=== PATIENT | male | born 1980 | race Caucasian/White ===

== ENCOUNTER 2018-02-18 10:31 | Outpatient (CLI) | payer OTHER, SELFPAY ==
[2018-02-18 12:46] LABS: TSH (W/Ref FT4) 4.39 uIU/mL (0.358-3.74)
[2018-02-18 13:17] LABS: FREE T4 1.08 ng/dL (0.76-1.46)
== END 2018-02-18 10:51 ==
PROVIDERS: PCP Family Medicine; Visit Provider Family Medicine
DX: R79.89 Other specified abnormal findings of blood chemistry (principal)
CPT/HCPCS: 36415; 84439; 84443

== ENCOUNTER 2018-06-03 09:21 | Outpatient (CLI) | payer OTHER, SELFPAY ==
[2018-06-03 12:09] LABS: TSH (W/Ref FT4) 1.42 uIU/mL (0.358-3.74)
== END 2018-06-03 09:41 ==
PROVIDERS: Family Medicine; PCP Family Medicine; Visit Provider Family Medicine
DX: E03.9 Hypothyroidism, unspecified (principal)
CPT/HCPCS: 36415; 84443

== ENCOUNTER 2018-09-03 12:10 | Day surgery (SDC) | payer OTHER, SELFPAY ==
--- NOTE | 2018-09-03 07:29 | W.COLOREPORT ---
Date of service: 09/03/18 Time of Service: 13:00 Colonoscopy Report Date of procedure: 09/03/18 Pre-op diagnosis general: Family history of FAP, s/p total colectomy with J-pouch Post-op diagnosis procedure note: same Procedure: Proctoscopy with biopsies Surgeon: Beatriz Baez Anesthesia proc note operative: other (General/ ASA 2 / Edith Ovalle CRNA and JERE Petty) Estimated blood loss (mL): 3 Pathology: other (Biopsies of J pouch, bx of rectum at 4 quadrants and bx of anastamosis) Complications: None Disposition: same day Indications: Mr. Saenz is a pleasant 38 year old male with a history of FAP s/p total colectomy with J-pouch who is here for surveillance of his rectum for polyps or cancer. Risks, benefits and complications have been reviewed. Complications include but are not limited to bleeding, pain, perforation, missed small lesion/polyp, sore throat, aspiration and adverse reaction to the medications. Questions were entertained and answered to their satisfaction and they wished to proceed. No guarantees were given or implied. Prep: Other (enema) Procedure Start Time: 13:00 Procedure End Time: 13:16 Findings: A circular area of irritation noted on the small bowel just past the anastamosis, a white plaque in the Jpouch. Normal appearing anastamosis. No sessile or peduncultaed polyps identified. Scope was advanced into the small bowel for 15 cm. Procedure Description: After informed consent was obtained the patient was taken to the procedure room and placed in a left decubitous position. Monitors were applied and a time out was done. The patients name, date of , procedure, allergies to medications and metal in their body was reviewed. The patient was then sedated. Once sedated and comfortable a rectal exam was done. External exam was normal. Internal exam revealed a normal sphincter tone and no palpable masses. The scope was then introduced and advanced carefully to about 15 cm into the J-Pouch. It was slowly retracted. In the ouch an area measuring approximately 1 cm was noted to be red. No polypoid characteristics just very red and irritated. A biopsy was done. There was also a white plaque noted just past the anastamosis that was biopsied. No polypoid tissue, sessile polyps or pedunculated polyps were noted at the anastamosis or the rectal tissue. Biopsies in the 4 quadrants were done both at the anastamosis and just distal to the anastamosis. The patient tolerated the procedure well and there were no immediate complications. Follow up: The patient should follow up in 2 years unless they develop changes in bowel habits or other new gastrointestinal complaints.
--- NOTE | 2018-09-03 07:32 | COLE_ITS ---
Date of service: 09/03/18 Time of Service: 13:00 Colonoscopy Report Date of procedure: 09/03/18 Pre-op diagnosis general: Family history of FAP, s/p total colectomy with J- pouch Post-op diagnosis procedure note: same Procedure: Proctoscopy with biopsies Surgeon: Beatriz Baez Anesthesia proc note operative: other (General/ ASA 2 / Edith Ovalle CRNA and JERE Petty) Estimated blood loss (mL): 3 Pathology: other (Biopsies of J pouch, bx of rectum at 4 quadrants and bx of anastamosis) Complications: None Disposition: same day Indications: Mr. Saenz is a pleasant 38 year old male with a history of FAP s/p total colectomy with J-pouch who is here for surveillance of his rectum for polyps or cancer. Risks, benefits and complications have been reviewed. Complications include but are not limited to bleeding, pain, perforation, missed small lesion/polyp, sore throat, aspiration and adverse reaction to the medications. Questions were entertained and answered to their satisfaction and they wished to proceed. No guarantees were given or implied. Prep: Other (enema) Procedure Start Time: 13:00 Procedure End Time: 13:16 Findings: A circular area of irritation noted on the small bowel just past the anastamosis, a white plaque in the Jpouch. Normal appearing anastamosis. No se ssile or peduncultaed polyps identified. Scope was advanced into the small bowel for 15 cm. Procedure Description: After informed consent was obtained the patient was taken to the procedure room and placed in a left decubitous position. Monitors were applied and a time out was done. The patients name, date of , procedure, allergies to medications and metal in their body was reviewed. The patient was then sedated. Once sedated and comfortable a rectal exam was done. External exam was normal. Internal exam revealed a normal sphincter tone and no palpable masses. The scope was then introduced and advanced carefully to about 15 cm into the J- Pouch. It was slowly retracted. In the ouch an area measuring approximately 1 cm was noted to be red. No polypoid characteristics just very red and irritated. A biopsy was done. There was also a white plaque noted just past the anastamosis that was biopsied. No polypoid tissue, sessile polyps or pedunculated polyps were noted at the anastamosis or the rectal tissue. Biopsies in the 4 quadrants were done both at the anastamosis and just distal to the anastamosis. The patient tolerated the procedure well and there were no immediate complications. Follow up: The patient should follow up in 2 years unless they develop changes in bowel habits or other new gastrointestinal complaints.
--- NOTE | 2018-09-03 07:32 | W.PM.DSUDISC ---
Discharge Plan Disposition Patient Disposition: HOME Condition: Good Discharge Details Reason For Visit: Surveillance proctoscopy Attending Provider: Beatriz Baez Primary Care Provider: Darian Torrez Home Meds and New Rx's Prescriptions: No Action levothyroxine 112 mcg capsule 112 mcg PO DAILY Qty: 90 RF: 3 Discharge Instructions Additional Instructions: Findings: no polyps. Random biopsies were done There was an irritated area in the small bowel that was biopsied Follow up:2 years Please call if you develop: fevers >101.5 Nausea or Vomiting Abdominal pain that is not transient DAY SURGERY UNIT POST COLONOSCOPY INSTRUCTIONS 1. Because there will be medication in your system for the next 24 hours, you may feel a little sleepy. Your coordination will be affected. Therefore: a. Do not drive or operate dangerous equipment for 24 hours. b. Do not drink alcohol beverages for 24 hours (not even beer). c. Plan to go home and rest for the day. 2. Generally there are no restrictions on your activity after a day or so has gone by, but you may feel a bit fatigued for a few days. 3 After you arrive home you may have a light meal and return to a normal diet as you can tolerate it without feeling sick to your stomach. 4. After surgery, you may feel pain or discomfort. This should be only transient, but if it persists please contact your doctor. 5. If there are any questions regarding the findings of your procedure, please feel free to contact your doctor. 6. If you are unable to contact your doctor with a problem, contact the hospital at [phone]. 7. Continue all your regular medications unless directed otherwise. I understand the above instructions and have no questions. Signature of Patient or Responsible Adult Escort Date/Time Name of Responsible Adult Escort Signature of Nurse Date/Time Stand Alone Forms: Mary Haines (DSU) Activity:: Activity as Tolerated Diet:: As Tolerated Discharge Orders Discharge Orders: Discharge Order (Routine); Ordered 09/03/18 Ordered By: Beatriz Baez DS: Diagnosis Discharge Diagnosis (1) Family history of familial adenomatous polyposis: Status: Acute
[2018-09-03 12:15] VITALS: BP 123/81; PULSE 75; RESP 16; TEMP 35.6; O2SAT 94
[2018-09-03] MEDS: Lactated Ringers 1,000 ML 80 ML IV (12:50)
--- NOTE | 2018-09-03 13:05 | BOWEL_PTH ---
PATIENT: Wilbert Saenz LOC: [facility] U#:[id number] AGE/SX: 38/M ROOM: RE09/03/[address]: Beatriz Baez MD : 1980 BED: DIS: 09/03/2018 SPEC #: [id number] RECD: 09/03/18 16:52 STATUS: ALBERT MCCLAIN #: [id number] ZOË: 09/03/18 13:[address]: Beatriz Baez DEPT: Surgical Specimen RECD BY: Amina Rowland ENTERED: 09/03/18 16:54 SP TYPE: Bowel OTHR DR: Darian Torrez MD Tissues: 1 - BIOPSY BOWEL 2 - BIOPSY BOWEL 3 - BIOPSY BOWEL Procedures: GROSS AND MICRO LEVEL 4 Comments: [id number]
[2018-09-03 13:42] VITALS: BP 108/57; PULSE 64; RESP 15; TEMP 35.6; O2SAT 97
== END 2018-09-03 14:05 | disposition home or self-care (01) ==
LOC: SUR 12:11
PROVIDERS: PCP Family Medicine; Visit Provider Surgery
PROC: 0DJD8ZZ Inspection of Lower Intestinal Tract, Via Natural or Artificial Opening Endoscopic (ICD-10-PCS; CPT 45330; principal; 2018-09-03 12:45)
DX: Z12.11 Encounter for screening for malignant neoplasm of colon (principal); K63.3 Ulcer of intestine; K62.89 Other specified diseases of anus and rectum; K62.1 Rectal polyp; Z86.010 Personal history of colon polyps; Z90.49 Acquired absence of other specified parts of digestive tract; Z98.0 Intestinal bypass and anastomosis status; Z83.71 Family history of colonic polyps; K21.9 Gastro-esophageal reflux disease without esophagitis; Z80.0 Family history of malignant neoplasm of digestive organs
CPT/HCPCS: 46606; 88305

== ENCOUNTER 2019-01-28 11:10 | Outpatient (CLI) | payer OTHER, SELFPAY ==
--- NOTE | 2019-01-28 11:30 | DI.RAD_ITS ---
EXAM: XR CHEST 2V PA AND LATERAL INDICATION: cough, wheezing, dyspnea, pneumonia, J18.9. COMPARISON: CHEST 2 VIEWS PA,LAT from 01/20/2015 CHEST 2 VIEWS PA,LAT from 02/14/2016 TECHNIQUE: 2D digital imaging was performed. FINDINGS: Heart is not enlarged. There is somewhat prominent right hilar contour but this appears unchanged in comparison with previous examinations including January 2015. Lungs are generally clear. No pleu ral effusion. IMPRESSION: No evidence of acute process
[2019-01-28 12:46] LABS: ALT 60 U/L (16-63); AST 38 U/L (15-37); Alkaline Phosphatase 148 U/L (46-116); Anion Gap 12.8 mmol/L (3-11); BUN 10 mg/dL (7-18); Bilirubin, Total 0.5 mg/dL (0.2-1.0); CO2 23.2 mmol/L (21.0-32.0); CREATININE 1.08 mg/dL (0.70-1.30); Calcium 8.9 mg/dL (8.5-10.1); Chloride 104 mmol/L (98-107); Glucose 94 mg/dL (70-100); Potassium 4.5 mmol/L (3.5-5.1); Sodium 140 mmol/L (136-145); Total Protein 7.8 g/dL (6.4-8.2)
[2019-01-28 12:52] LABS: Abs Immature Grans 0.06 k/cumm (0.0-0.09); HCT 50.6 % (40.0-50.0); HGB 16.9 g/dL (13.5-17.5); Mean Corp. HGB Concentration 33.4 g/dL (32.0-36.0); Mean Corpuscular Volume 89.7 fL (80-95); Mean Platelet Volume 10.5 fL (8.0-11.0); Platelet Count 368 x1000/uL (130-400); RBC 5.64 m/cumm (4.50-6.00); RBC Distribution Width 13.3 % (11.8-14.1); White Blood Cell Count 14.35 k/cumm (4.4-10.8)
[2019-01-28 13:48] LABS: Absolute Eosinophil Count 0.86 k/cumm (0.0-0.7); Absolute Lymphocyte Count 2.01 k/cumm (1.2-3.4); Absolute Monocyte Count 1.29 k/cumm (0.11-0.7); Absolute Neutrophil Count 10.19 k/cumm (1.2-6.7); Atypical Lymphocytes % 3; Diff Comment Manual Differential; RBC Morphology Normal
== END 2019-01-28 11:30 ==
PROVIDERS: PCP Family Medicine; Visit Provider Family Medicine
DX: R05 Cough; R06.2 Wheezing; R06.09 Other forms of dyspnea; J18.9 Pneumonia, unspecified organism
CPT/HCPCS: 36415; 80053; 71046; 85025

== ENCOUNTER 2020-01-13 07:34 | Day surgery (SDC) | payer OTHER, SELFPAY ==
--- NOTE | 2020-01-13 06:54 | ENDO_ITS ---
Date of service: 01/13/20 Time of Service: 08:58 Endoscopy Report DATE OF PROCEDURE: 01/13/20 PRE-OP DIAGNOSIS: Hx of FAP and adenomatous polyp POST-OP DIAGNOSIS: other (same and multiple polyps) PROCEDURE: Flexible sigmoidoscopy SURGEON: Beatriz Baez ANESTHESIA: other (General/ASA 2/Chantelle Barreto, KAYLA) PATHOLOGY: other (multiple bx and polyps) COMPLICATIONS: None DISPOSITION: same day INDICATIONS: Chance is back to see me today for a sigmoidoscopy. He was seen at [facility] [place] and had another scope done and they found a tubular adenoma. There was no dysplacia. He was supposed to follow up with them in 6 months but then COVID hit and everything was delayed. He would like to have a scope done here as he is also dealing with his MOM who unfortunately has metastatic colon cancer. He denies any changes in his bowel habits. He has not had any melena or hematochezia. He has had no weight loss. He has no rectal pain. PREP: Other (mag Citrate) FINDINGS: Small polyps in the small bowel and rectum PROCEDURE DESCRIPTION: After informed consent was obtained the patient was taken to the procedure room and placed in a left decubitous position. Monitors were applied and a time out was done. The patients name, date of , procedure, allergies to medications and metal in their body was reviewed. The patient was then sedated. Once sedated and comfortable a rectal exam was done. External exam was normal. Internal exam revealed a normal sphincter tone and no palpable masses. The prostate felt smooth. The scope was then introduced and advanced carefully up to 45 cm. The prep was adequate. The scope was then slowly retracted. Polyps were removed at 30,18, 10 and 5 cm. Random biopsies were done of the anastamosis. The scope was removed and the patient was woken up and taken back to Same day surgery in stable condition. The patient tolerated the procedure well and there were no immediate complications. Follow up: I will call him with results and we will figure out next time for a scope. At that time we will also do an upper endoscopy..
--- NOTE | 2020-01-13 06:56 | W.PM.DSUDISC ---
Discharge Plan Disposition Patient Disposition: HOME Condition: Good Discharge Details Reason For Visit: FAP and Tubular adenoma Attending Provider: Beatriz Baez Primary Care Provider: Darian Torrez Home Meds and New Rx's Prescriptions: Continued fluticasone propionate [Allergy Relief (fluticasone)] 50 mcg/actuation spray,suspension 2 spray FALLON BID Qty: 15.8 RF: 0 omeprazole 40 mg capsule,delayed release(DR/EC) 40 mg PO DAILY PRNRF: 0 levothyroxine 112 mcg capsule 112 mcg PO DAILY Qty: 90 RF: 0 Discharge Instructions Additional Instructions: Findings: polyps in the small bowel and rectal stump. Follow up: I will call you with results and we will discuss follow up at that time Please call if you develop: fevers >101.5 Nausea or Vomiting Abdominal pain that is not transient DAY SURGERY UNIT POST ENDOSCOPY INSTRUCTIONS 1. Because there will be medication in your system for the next 24 hours, you may feel a little sleepy. Your coordination will be affected. Therefore: a. Do not drive or operate dangerous equipment for 24 hours. b. Do not drink alcohol beverages for 24 hours (not even beer). c. Plan to go home and rest for the day. 2. Generally there are no restrictions on your activity after a day or so has gone by, but you may feel a bit fatigued for a few days. 3 After you arrive home you may have a light meal and return to a normal diet as you can tolerate it without feeling sick to your stomach. 4. After surgery, you may feel pain or discomfort. This should be only transient, but if it persists please contact your doctor. 5. If there are any questions regarding the findings of your procedure, please feel free to contact your doctor. 6. If you are unable to contact your doctor with a problem, contact the hospital at [phone]. 7. Continue all your regular medications unless directed otherwise. I understand the above instructions and have no questions. Signature of Patient or Responsible Adult Escort Date/Time Name of Responsible Adult Escort Signature of Nurse Date/Time Activity:: Activity as Tolerated Diet:: As Tolerated Discharge Orders Discharge Orders: Discharge Order (Routine); Ordered 01/13/20 Ordered By: Beatriz Baez
[2020-01-13 07:44] VITALS: BP 116/73; PULSE 78; RESP 16; TEMP 36.3; O2SAT 97
[2020-01-13] MEDS: Lactated Ringers 1,000 ML 80 ML IV (08:04)
--- NOTE | 2020-01-13 09:05 | BOWEL_PTH ---
PATIENT: Wilbert Saenz LOC: [facility] U#:[id number] AGE/SX: 39/M ROOM: RE01/13/[address]: Beatriz Baez MD : 1980 BED: DIS: 01/13/2020 SPEC #: [id number] RECD: 01/13/20 12:08 STATUS: ALBERT RE #: [id number] ZOË: 01/13/20 09:[address]: Beatriz Baez DEPT: Surgical Specimen RECD BY: Douglas Perez ENTERED: 01/13/20 12:17 SP TYPE: Bowel OTHR DR: Darian Torrez MD Tissues: 1 - BIOPSY BOWEL 2 - BIOPSY BOWEL 3 - BIOPSY BOWEL 4 - BIOPSY BOWEL 5 - BIOPSY BOWEL 6 - BIOPSY BOWEL Procedures: GROSS AND MICRO LEVEL 4 Comments: [id number]
== END 2020-01-13 10:55 | disposition home or self-care (01) ==
LOC: SUR 07:34
PROVIDERS: PCP Family Medicine; Visit Provider Surgery
PROC: 0DJD8ZZ Inspection of Lower Intestinal Tract, Via Natural or Artificial Opening Endoscopic (ICD-10-PCS; CPT 45330; principal; 2020-01-13 09:00)
DX: Z09 Encounter for follow-up examination after completed treatment for conditions other than malignant neoplasm (principal); Z86.010 Personal history of colon polyps; Z80.0 Family history of malignant neoplasm of digestive organs; Z90.49 Acquired absence of other specified parts of digestive tract; Z98.0 Intestinal bypass and anastomosis status
CPT/HCPCS: 45380; 88305; J2001; J2704

== ENCOUNTER 2020-02-10 10:11 | Outpatient (CLI) | payer OTHER, SELFPAY ==
--- NOTE | 2020-02-10 08:30 | DI.US_ITS ---
EXAM: US HERNIA CLINICAL HISTORY: rt inguinal pain for months,R10.31. TECHNIQUE: Ultrasound was performed using standard protocol. COMPARISON: No exams were available for comparison FINDINGS: Sonographic assessment utilizing grayscale and color Doppler imaging was performed and targeted to th e area of clinical concern. There is widening of the right inguinal canal to 1.6 cm. Some fat is seen extending into the inguina l canal with motion with Valsalva. IMPRESSION: Small right inguinal hernia containing fat. DATA REPOSITORY:
== END 2020-02-10 10:31 ==
PROVIDERS: PCP Family Medicine; Visit Provider Family Medicine
DX: K40.90 Unilateral inguinal hernia, without obstruction or gangrene, not specified as recurrent (principal)
CPT/HCPCS: 76857

== ENCOUNTER 2020-04-15 03:22 | Outpatient (CLI) | payer OTHER, SELFPAY ==
[2020-04-15 15:56] LABS: ALT 45 U/L (16-63); AST 23 U/L (15-37); Albumin 3.8 g/dL (3.4-5.0); Alkaline Phosphatase 117 U/L (46-116); Anion Gap 8.4 mmol/L (3-11); BUN 13 mg/dL (7-18); Bilirubin, Total 0.5 mg/dL (0.2-1.0); CO2 24.6 mmol/L (21.0-32.0); CREATININE 1.08 mg/dL (0.70-1.30); Calcium 8.8 mg/dL (8.5-10.1); Calculated LDL 77 mg/dL (<100); Chloride 104 mmol/L (98-107); Cholesterol 155 mg/dL (<200); Glucose 108 mg/dL (74-106); HDL Cholesterol 36 mg/dL (40-60); Sodium 137 mmol/L (136-145); TSH 2.69 uIU/mL (0.36-3.74); Total Protein 7.2 g/dL (6.4-8.2); Triglyceride 210 mg/dL (<150)
[2020-04-19 16:35] LABS: Testosterone, Free 5.28 ng/dL (4.65-18.1); Testosterone, Total 211 ng/dL (240-950)
== END 2020-04-15 03:42 ==
PROVIDERS: Family Medicine; PCP Family Medicine; Visit Provider Family Medicine
DX: Z00.00 Encounter for general adult medical examination without abnormal findings (principal); E78.5 Hyperlipidemia, unspecified; E06.3 Autoimmune thyroiditis; R74.8 Abnormal levels of other serum enzymes
CPT/HCPCS: 36415; 80053; 80061; 84402; 84403; 84443

== ENCOUNTER 2020-07-29 03:09 | Outpatient (CLI) | payer OTHER, SELFPAY ==
[2020-07-29 10:03] LABS: Source Nasal/Nares
[2020-07-29 15:02] LABS: COVID-19 PCR Negative (Negative)
== END 2020-07-29 03:10 | disposition home or self-care (01) ==
LOC: LBO 03:10
PROVIDERS: PCP Family Medicine; Visit Provider Surgery
DX: Z20.828 Contact with and (suspected) exposure to other viral communicable diseases (principal); Z01.818 Encounter for other preprocedural examination
CPT/HCPCS: 87635

== ENCOUNTER 2020-08-01 08:20 | Day surgery (SDC) | payer OTHER, SELFPAY ==
--- NOTE | 2020-08-01 07:00 | ENDO_ITS ---
Date of service: 08/01/20 Time of Service: Endoscopy Report DATE OF PROCEDURE: 08/01/20 PRE-OP DIAGNOSIS: Familial polyposis syndrome, GERD POST-OP DIAGNOSIS: same (Gastritis, esophagitis, chronic inflammation in the J- pouch) PROCEDURE: 1. EGD with biopsies 2. Colonoscopy with biopsies SURGEON: Beatriz Baez ANESTHESIA TYPE: General:No Airway (ASA 2/Pb Parson, KAYLA) ESTIMATED BLOOD LOSS: 5 PATHOLOGY: other (Duodenum bx, antrum bx, body of stomach bx, GE junction bx, J- pouch bx, anastamosis bx) COMPLICATIONS: None DISPOSITION: same day INDICATIONS: Wilbert is here today to discuss another anoscopy. His last endoscopy was 6 months ago. Biopsies of the anastomosis noted some low-grade dysplasia and inflammation. He has had no bleeding or changes in bowel habits. Discussed anoscopy with him including risks and benefits. He understands and wishes to proceed. Complications include but are not limited to bleeding, pain, perforation of the rectal stump or the J-pouch and adverse reaction to the medications. No guarantees were given or implied. We also discussed Covid testing and quarantine requirements. Proceed with endoscopy under sedation. (3) Gastroesophageal reflux disease with esophagitis: Wilbert has a history of reflux disease which seems well controlled on omeprazole 40 mg daily. Due to his history of familial polyposis syndrome there is a risk for him to develop polyps which could be malignant in his duodenum. We will schedule him for an upper endoscopy at the same time as his anoscopy to make sure that he does not have any polyps in his small bowel. I will also check for inflammation in his esophagus and Gilliland's esophagitis while I am there. PREP: Other (Mag Citrate) PROCEDURE START TIME: PROCEDURE END TIME: : FINDINGS: Inflammation and shallow ulcers in the stomach Mild inflammation at the GE junction Chronic inflammation of the J-pouch PROCEDURE DESCRIPTION: After informed consent was obtained the patient was take to the procedure room and placed in a supine position. Monitors were applied and a time out was done. The patients name, date of , procedure type, allergies to medications and metal in their body was reviewed. A bite block was placed and the patient was sedated. Once sedated and comfortable the gastroscope was advanced through the oropharynx which was grossly normal into the esophagus. The proximal and mid- esophagus were normal. In the distal esophagus there was mild inflammation noted. The scope was advanced into the stomach and through the pylorus into the 3rd portion of the duodenum. The duodenum was noted to be normal. Biopsies were done. No polyps were identified. The scope was retracted back into the stomach. There was mild to moderate inflammation noted in the antrum and body. Biopsies were done to rule out H. pylori. There were a couple of shallow ulcers in the body of the stomach. The scope was retro-flexed. The cardia and fundus were noted to be normal. There was no hiatal hernia noted. The scope was retracted back into the esophagus and biopsies were done of the GE junction to rule out Gilliland's. The Z line was regular. The GE junction was at 35 cm. While the patient was still sedated they were placed in a left decubitous position. A rectal exam was done. External exam was normal. Internal exam revealed a normal sphincter tone and no palpable masses. I was unable to feel the prostate. The scope was then introduced advanced to 30 cm in the small bowel. There was chronic inflammation noted in the J-pouch and this was biopsied. No polyps were identified. Bx of the anastamosis was also done for surveillance. The scope was removed and the patient was woken up and taken back to Same day surgery in stable condition. The patient tolerated the procedure well and there were no immediate complicati ons. Follow up: Will depend on the pathology results
--- NOTE | 2020-08-01 07:02 | PDOC.DSDIS_ITS ---
Discharge Plan Disposition Patient Disposition: HOME Condition: Good Discharge Details Reason For Visit: Douglass/EGD Attending Provider: Beatriz Baez Primary Care Provider: Darian Torrez Home Meds and New Rx's Prescriptions: Continued fluticasone propionate [Allergy Relief (fluticasone)] 50 mcg/actuation spray,suspension 2 spray FALLON BID Qty: 15.8 RF: 0 omeprazole 40 mg capsule,delayed release(DR/EC) 40 mg PO DAILY Qty: 90 RF: 3 testosterone cypionate [Depo-Testosterone] 200 mg/mL oil 200 mg IM Q2W Qty: 2 RF: 5 (DME) syringe with needle, safety [Easy Touch SheathLock Syrg-Ndl] 3 mL 22 gauge x 1 syringe See Rx Instructions .ROUTE .MEDSUPPLY Qty: 20 RF: 0 levothyroxine 112 mcg capsule 112 mcg PO DAILY Qty: 90 RF: 3 Discharge Instructions Additional Instructions: Findings: Inflammation in the stomach and in the esophagus- Increase your Omeprazole to 2 x a day for 30 days then back down to daily Chronic inflammation in the J-pouch No polyps Follow up: Depends on bx results Please call if you develop: fevers >101.5 Nausea or Vomiting Abdominal pain that is not transient DAY SURGERY UNIT POST ENDOSCOPY INSTRUCTIONS 1. Because there will be medication in your system for the next 24 hours, you may feel a little sleepy. Your coordination will be affected. Therefore: a. Do not drive or operate dangerous equipment for 24 hours. b. Do not drink alcohol beverages for 24 hours (not even beer). c. Plan to go home and rest for the day. 2. Generally there are no restrictions on your activity after a day or so has gone by, but you may feel a bit fatigued for a few days. 3 After you arrive home you may have a light meal and return to a normal diet as you can tolerate it without feeling sick to your stomach. 4. After surgery, you may feel pain or discomfort. This should be only transient, but if it persists please contact your doctor. 5. If there are any questions regarding the findings of your procedure, please feel free to contact your doctor. 6. If you are unable to contact your doctor with a problem, contact the hospital at [phone]. 7. Continue all your regular medications unless directed otherwise. I understand the above instructions and have no questions. Signature of Patient or Responsible Adult Escort Date/Time Name of Responsible Adult Escort Signature of Nurse Date/Time Activity:: Activity as Tolerated Diet:: As Tolerated Discharge Orders Discharge Orders: Discharge Order (Routine); Ordered 08/01/20 Ordered By: Beatriz Baez
[2020-08-01 08:35] VITALS: BP 130/86; PULSE 74; RESP 20; TEMP 36.4; O2SAT 95
[2020-08-01] MEDS: Lactated Ringers 1,000 ML 80 ML IV (08:50)
--- NOTE | 2020-08-01 09:36 | STOM_PTH ---
PATIENT: Wilbert Saenz LOC: [facility] U#:[id number] AGE/SX: 40/M ROOM: RE08/01/[address]: Beatriz Baez MD : 1980 BED: DIS: 08/01/2020 SPEC #: [id number] RECD: 08/01/20 12:51 STATUS: ALBERT RE #: [id number] ZOË: 08/01/20 09:[address]: Beatriz Baez DEPT: Surgical Specimen RECD BY: Amina Rowland ENTERED: 08/01/20 12:53 SP TYPE: STOMACH OTHR DR: Darian Torrez MD Tissues: 1 - BIOPSY BOWEL 2 - STOMACH BIOPSY 3 - STOMACH BIOPSY 4 - ESOPHAGUS BIOPSY 5 - ESOPHAGUS BIOPSY 6 - BIOPSY BOWEL Procedures: GROSS AND MICRO LEVEL 4 Comments: [id number]
[2020-08-01 10:43] VITALS: BP 115/74; PULSE 67; RESP 20; TEMP 36.3; O2SAT 97
== END 2020-08-01 11:10 | disposition home or self-care (01) ==
LOC: SUR 08:20
PROVIDERS: PCP Family Medicine; Visit Provider Surgery
PROC: 0DJD8ZZ Inspection of Lower Intestinal Tract, Via Natural or Artificial Opening Endoscopic (ICD-10-PCS; CPT 45330; principal; 2020-08-01 09:45)
PROC: 0DJ68ZZ Inspection of Stomach, Via Natural or Artificial Opening Endoscopic (ICD-10-PCS; CPT 43235; 2020-08-01 09:45)
DX: K21.00 Gastro-esophageal reflux disease with esophagitis, without bleeding (principal); D13.2 Benign neoplasm of duodenum; Z98.0 Intestinal bypass and anastomosis status; Z86.010 Personal history of colon polyps; Z83.71 Family history of colonic polyps; K29.70 Gastritis, unspecified, without bleeding; K25.9 Gastric ulcer, unspecified as acute or chronic, without hemorrhage or perforation
CPT/HCPCS: 46606; 43239; 88305; J2001; J2704

== ENCOUNTER 2020-08-12 13:21 | Outpatient (REF) | payer OTHER, SELFPAY ==
[2020-08-17 12:19] LABS: Testosterone, Free 11.6 ng/dL (4.65-18.1); Testosterone, Total 340 ng/dL (240-950)
== END 2020-08-12 13:22 | disposition home or self-care (01) ==
LOC: NCHCN 13:21
PROVIDERS: PCP Family Medicine; Visit Provider Family Medicine
DX: R86.1 Abnormal level of hormones in specimens from male genital organs (principal)
CPT/HCPCS: 84402; 84403

== ENCOUNTER 2020-11-21 13:11 | Outpatient (RCR) | payer OTHER, SELFPAY ==
--- NOTE | 2020-11-21 08:00 | HOLTER_ITS ---
APPROVED REPORT Conclusion There is a 48-hour monitor ordered for indication of SVT. The patient was in normal sinus rhythm for the majority of the recording with an average heart rate o f 83 bpm. There were no episodes of ventricular tachycardia and 6 total PVCs. There were no episodes of supraventricular tachycardia and 2 total PACs. There were no episodes of atrial fibrillation, no pauses greater than 3 seconds and no evidence of hi gh degree heart block There was 1 recorded event of heart racing x5 minutes. This was associate with sinus rhythm and sinu s tachycardia.
== END 2020-12-10 23:59 | disposition home or self-care (01) ==
LOC: RT 13:11
PROVIDERS: PCP Family Medicine; Visit Provider Family Medicine
DX: R00.0 Tachycardia, unspecified (principal); I49.3 Ventricular premature depolarization; I49.1 Atrial premature depolarization
CPT/HCPCS: 93225; 93226

== ENCOUNTER 2021-02-17 19:37 | Outpatient (REF) | payer OTHER, SELFPAY ==
[2021-02-19 14:35] LABS: COVID-19 RT-PCR UVMMC Result Negative (Negative)
== END 2021-02-17 19:38 | disposition home or self-care (01) ==
LOC: LBN 19:37
PROVIDERS: PCP Family Medicine; Visit Provider Family Medicine
DX: Z20.822 Contact with and (suspected) exposure to COVID-19 (principal); R50.9 Fever, unspecified
CPT/HCPCS: U0003

== ENCOUNTER 2021-03-10 01:29 | Outpatient (CLI) | payer OTHER, SELFPAY ==
[2021-03-10 10:18] LABS: Source Nasal/Nares
[2021-03-10 13:31] LABS: COVID-19 PCR Negative (Negative)
== END 2021-03-10 01:30 | disposition home or self-care (01) ==
LOC: LBO 01:29
PROVIDERS: PCP Family Medicine; Visit Provider Surgery
DX: Z20.822 Contact with and (suspected) exposure to COVID-19 (principal)
CPT/HCPCS: 87635

== ENCOUNTER 2021-03-13 10:22 | Day surgery (SDC) | payer OTHER, SELFPAY ==
--- NOTE | 2021-03-13 06:27 | W.ANESPRE ---
General Info Date of Service Date Performed: 03/13/21 Height: 5 ft 11 in Weight: 142.882 kg Body Mass Index (BMI): 43.9 Surgical Procedure: Operation Date: 03/13/21 11:25 Proposed Procedures Side Surgeon p Flexible Sigmoidoscopy Beatriz Baez MD s Gastroscopy Beatriz Baez MD Meds Allergies and Home Medications Allergies Allergy/AdvReac Type Severity Reaction Status Date / Time doxycycline AdvReac Intermediate heartburn Verified 03/13/21 10:46 Home Medication Medication Instructions Recorded omeprazole 40 mg capsule,delayed 40 mg PO DAILY #90 cap 03/02/20 release levothyroxine 112 mcg capsule 112 mcg PO DAILY #90 cap 07/22/20 syringe with needle, safety 3 mL #20 ea 10/19/20 22 gauge x 1 testosterone cypionate 200 mg/mL 150 mg IM QWEEK #4 ml 11/16/20 intramuscular oil albuterol sulfate 90 mcg/actuation 2 inh INHALATION Q6H PRN 02/28/21 breath activated powder inhaler Current Visit Medications: Current Medications Generic Name Dose Route Start Last Admin Trade Name Freq PRN Reason Stop Dose Admin Ringer's Solution 1,000 mls @ 80 mls/hr 03/13/21 06:00 IV 04/09/21 23:59 INFUSION ARIANA IV Miscellaneous Supplies 1 each 03/13/21 06:00 Iv Access IV 04/09/21 23:59 DIRECTED ARIANA Sodium Chloride 0 ml 03/13/21 06:00 Normal Saline Flush 10 Ml Syr IV 04/09/21 23:59 PRN PRN Sodium Chloride 0 ml 03/13/21 06:00 Normal Saline 10 Ml Vial IJ 04/09/21 23:59 DIRECTED PRN Sterile Water 0 ml 03/13/21 06:00 Water,Injection,Sterile 10 Ml Vial IJ 04/09/21 23:59 DIRECTED PRN PFSH Active Problems Active Problems: Problem Status Onset Code Palpitations R00.2 SVT (supraventricular tachycardia) I47.1 Tubular adenoma ~07/2020 D36.9 Familial polyposis of colon D12.6 CPAP (continuous positive airway pressure) dependence Z99.89 Sleep apnea G47.30 Low testosterone in male R79.89 Hypogonadism Bilateral inguinal hernia K40.20 Right inguinal pain R10.31 Bronchospasm J98.01 Seasonal allergies J30.2 Otitis media H66.90 URI (upper respiratory infection) J06.9 Family history of familial adenomatous polyposis Z83.71 Tubular adenoma of colon 05/03/14 D12.6 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 states it wasn't chest pain but acid reflux Familial polyposis Familial polyposis of colon family hx-has routine proctoscopies with Dr. Baez, also sees GI Family history of familial adenomatous polyposis s/p colectomy- follows with GI Gastroesophageal reflux disease with esophagitis (05/25/15) refilled prilosec Sharla's thyroiditis (06/06/15) Otitis media Seasonal allergies Sleep apnea SVT (supraventricular tachycardia) Tubular adenoma of colon (05/03/14) URI (upper respiratory infection) Surgical History Surgical History Anoscopy (02/13/17) with biopsy - flat, low grade dysplasia H/O colectomy (~2002) Per Dr Fulton's office note dated 04/13/13 patient was 10 years s/p total abdominal colectomy proctectomy with ileoanal anastamosis for a FAP. PROCTOSCOPY 05/03/142019 Tobacco Smoking/Tobacco Use Status: Never Second hand exposure: No Alcohol Alcohol Intake: current Alcohol intake frequency: holidays/special occasions only Alcohol type: beer Substance Use Substance use: Rarely Substance use type: marijuana Vital Signs and Lab Results Vital Signs Most Recent Vital Signs in EMR: Temp Pulse Resp BP Pulse Ox 36.5 C 75 18 121/83 98 03/13/21 10:38 03/13/21 10:38 03/13/21 10:38 03/13/21 10:38 03/13/21 10:38 Lab Results Blood Type / Crossmatch: No Data to Display Complete Blood Count: No Data to Display Complete Metabolic Panel: No Data to Display Liver Function Panel: No Data to Display Coagulation Panel: No Data to Display Cardiac Panel: No Data to Display Arterial Blood Gas: No Data to Display Venous Blood Gas: No Data to Display Pancreas Panel: No Data to Display Thyroid Panel: No Data to Display Infectious Disease: Coronavirus (COVID-19)(PCR) Negative (Negative) 03/10/21 09:44 03/10/21 Coronavirus 2019 Source Nasal/Nares 03/10/21 09:44 03/10/21 Blood Cultures: No Data to Display Toxicology Panel: No Data to Display Imaging and Studies Imaging and Studies Stress Test Summary: 01/2015: LVEF 60-65%, no hemodynamically sig valve lesion. Anesthesia Assessment and Plan Anesthesia History Personal History: No History of Anesthesia Complications Family History: No Family History of Anesthesia Complications Exercise Tolerance Exercise Tolerance: Metabolic Equivalents>4 Cardiac & Pulmonary Exam Cardiac Exam: Normal S1/S2 Heart Sounds Pulmonary Exam: Clear Bilateral Breath Sounds Airway Exam Known Difficult Airway: No Mallampati Class: 3 Mouth Opening: Narrow (< 3cm) Thyromental Distance: Greater than 3 cm Neck Range of Motion: Full ROM Neck Circumference: Thick Teeth Condition: Normal Dentition ASA Classification ASA Score: ASA 3 Emergency Case?: No NPO Status NPO Status: NPO Clears >2 hours, Solids >8 hours Anesthesia Plan Resuscitation Status: Full Code Anesthesia Technique: General Anesthesia Airway Planned: Natural Airway Monitors Used: Standard Monitors Preoperative Comments:: 40 yo male for flex sig. Sig PMHx: BONNY, bronchospasm (albuterol), hashimotos (levothyroxine), SVT, never smoker, occ EtOH, cannabis. Previous anes: has had flex sig multiple times Propofol between 150-300 mg up front, tolerated well.
--- NOTE | 2021-03-13 06:49 | W.PM.ENDDOP ---
Date of service: 03/13/21 Time of Service: 12:30 Endoscopy Report DATE OF PROCEDURE: 03/13/21 PRE-OP DIAGNOSIS: Familial polyposis syndrome PROCEDURE: 1. EGD with biopsies 2. Flexible proctoscopy with biopsies SURGEON: Beatriz Baez ANESTHESIA TYPE: General:No Airway ESTIMATED BLOOD LOSS: 3 PATHOLOGY: other (Bx of duodenum, stomach and anus) COMPLICATIONS: None DISPOSITION: same day INDICATIONS: Wilbert is here today to discuss another anoscopy. His last endoscopy was 6 months ago. Biopsies of the anastomosis noted some low-grade dysplasia and inflammation. He has had no bleeding or changes in bowel habits. Discussed anoscopy with him including risks and benefits. He understands and wishes to proceed. Complications include but are not limited to bleeding, pain, perforation of the rectal stump or the J-pouch and adverse reaction to the medications. No guarantees were given or implied. We also discussed Covid testing and quarantine requirements. Proceed with flexible sigmoidoscopy under sedation. (5) Gastroesophageal reflux disease with esophagitis: Wilbert has a history of reflux disease which seems well controlled on omeprazole 40 mg daily. Due to his history of familial polyposis syndrome there is a risk for him to develop polyps which could be malignant in his duodenum. We will schedule him for an upper endoscopy at the same time as his anoscopy to make sure that he does not have any polyps in his small bowel. I will also check for inflammation in his esophagus and Gilliland's esophagitis while I am there. Risks benefits and complications were reviewed with him. And the procedure was explained to him. We reviewed Covid testing and quarantine requirements. Risks, benefits and complications have been reviewed. Complications include but are not limited to bleeding, pain, perforation, sore throat, aspiration, and adverse reaction to the medications. Questions were entertained and answered to their satisfaction and they wished to proceed. No guarantees were given or implied. COVID-19 testing explained to the patient. Reason for test reviewed. Quarantine per state requirements reviewed with patient. Patient understands and agrees to testing PREP: Other FINDINGS: mild inflammation in the stomach One gastric polyp- benign appearing PROCEDURE DESCRIPTION: After informed consent was obtained the patient was take to the procedure room and placed in a supine position. Monitors were applied and a time out was done. The patients name, date of , procedure type, allergies to medications and metal in their body was reviewed. A bite block was placed and the patient was sedated. Once sedated and comfortable the gastroscope was advanced through the oropharynx which was grossly normal into the esophagus. The proximal, mid and distal esophagus were normal noted. The scope was advanced into the stomach and through the pylorus into the 3rd portion of the duodenum. The duodenum was noted to be normal. Biopsies were done in the second and first portion of the duodenum. The scope was retracted back into the stomach. There was mild inflammation noted in the antrum and body. Biopsies were done to rule out H. pylori. There were a couple of shallow ulcers which where biopsied. There was one polyp noted and removed with cold forceps. The scope was retro-flexed. The cardia and fundus were noted to be normal. There was no hiatal hernia noted. The scope was retracted back into the esophagus. The Z line was regular. The GE junction was at 35 cm. While the patient was still sedated they were placed in a left decubitous position. A rectal exam was done. External exam was normal. Internal exam revealed a relaxed sphincter tone and no palpable masses. The prostate felt smooth. The scope was then introduced and advanced carefully up to 45 cm. The prep was adequate. The scope was then slowly retracted. No polyps were identified. Random biopsies were done of the anastamosis. The scope was removed and the patient was woken up and taken back to Same day surgery in stable condition. The patient tolerated the procedure well and there were no immediate complications. Follow up: I will call him with results and we will figure out next time for a scope.
--- NOTE | 2021-03-13 06:50 | W.PM.DSUDISC ---
Discharge Plan Disposition Patient Disposition: HOME Condition: Good Discharge Details Reason For Visit: Flex sig and EGD Attending Provider: Beatriz Baez Primary Care Provider: Darian Torrez Home Meds and New Rx's Prescriptions: Continued omeprazole 40 mg capsule,delayed release(DR/EC) 40 mg PO DAILY Qty: 90 RF: 3 testosterone cypionate [Depo-Testosterone] 200 mg/mL oil 150 mg IM QWEEK Qty: 4 RF: 5 albuterol sulfate 90 mcg/actuation aerosol powdr breath activated 2 inh inhalation Q6H PRNRF: 0 levothyroxine 112 mcg capsule 112 mcg PO DAILY Qty: 90 RF: 3 (DME) syringe with needle, safety [Easy Touch SheathLock Syrg-Ndl] 3 mL 22 gauge x 1 syringe See Rx Instructions .ROUTE .MEDSUPPLY Qty: 20 RF: 0 Discharge Instructions Additional Instructions: Findings: mild inflammation of the stomach no polyps multiple biopsies done for surveillance Follow up: 6 months to 1 year Please call if you develop: fevers >101.5 Nausea or Vomiting Abdominal pain that is not transient Rectal bleeding that is more then a tbsp A hard abdomen and inability to pass gas DAY SURGERY UNIT POST ENDOSCOPY INSTRUCTIONS Instructions for everyone who is given Anesthesia: For your safety, please do the following for the next 24 Hours: a. Do not drive or operate dangerous equipment b. Do not drink alcohol beverages or use any recreational drugs for the first 24 hours or while taking pain medications. The medications in your body may have a reaction that can be dangerous. c. Do not make any important decisions or sign any important papers 1. Generally there are no restrictions on your activity after a day or so has gone by, but you may feel a bit fatigued for a few days. 2. After you arrive home you may have a light meal and return to a normal diet as you can tolerate it without feeling sick to your stomach. 3. After surgery, you may feel pain or discomfort. This should be only transient, but if it persists please contact your doctor. 4. If there are any questions regarding the findings of your procedure, please feel free to contact your doctor. 6. If you are unable to contact your doctor with a problem, contact the hospital at [phone]. 7. Continue all your regular medications unless directed otherwise. I understand the above instructions and have no questions. Signature of Patient or Responsible Adult Escort Date/Time Name of Responsible Adult Escort Signature of Nurse Date/Time Activity:: Activity as Tolerated Diet:: As Tolerated Discharge Orders Discharge Orders: Discharge Order (Routine); Ordered 03/13/21 Ordered By: Beatriz Baez
[2021-03-13 10:38] VITALS: BP 121/83; PULSE 75; RESP 18; TEMP 36.5; O2SAT 98
[2021-03-13] MEDS: Lactated Ringers 1,000 ML 80 ML IV (10:58)
[2021-03-13 11:24] VITALS: BMI 43.9
--- NOTE | 2021-03-13 11:58 | STOM_PTH ---
PATIENT: Wilbert Saenz LOC: [facility] U#:[id number] AGE/SX: 40/M ROOM: RE03/13/[address]: Beatriz Baez MD : 1980 BED: DIS: 03/13/2021 SPEC #: [id number] RECD: 03/13/21 18:20 STATUS: ALBERT RE #: [id number] ZOË: 03/13/21 11:[address]: Beatriz Baez DEPT: Surgical Specimen RECD BY: Amina Rowland ENTERED: 03/13/21 18:21 SP TYPE: STOMACH OTHR DR: Darian Torrez MD Tissues: 1 - BIOPSY BOWEL 2 - STOMACH BIOPSY 3 - STOMACH BIOPSY 4 - BIOPSY BOWEL Procedures: GROSS AND MICRO LEVEL 4 Comments: [id number]
[2021-03-13 12:31] VITALS: BP 119/49; PULSE 89; RESP 22; TEMP 36.4; O2SAT 96
--- NOTE | 2021-03-13 12:35 | W.ANESPOSTOP ---
Postoperative Evaluation Date, Time and Location Date Performed: 03/13/21 Time Performed: 12:35 Patient Location: Day Surgery Unit Vital Signs Most Recent Imported Vital Signs: Most Recent Vital Signs Temp Pulse Resp BP Pulse Ox 36.4 C L 89 22 119/49 L 96 03/13/21 12:31 03/13/21 12:31 03/13/21 12:31 03/13/21 12:31 03/13/21 12:31 Pain Score Most Recent Pain Score: Most Recent Pain Score Pain Level 0 03/13/21 12:31 Assessment Mental Status: Awake (Alert & Oriented to Patient Baseline) Airway and Respiratory Function: Patent airway with normal (patient baseline) respiratory exam Cardiovascular Function: Hemodynamically Stable Hydration Status: Adequately Hydrated Nausea & Vomiting: No Nausea or Vomiting Pain: Pt. Denies Any Pain Peripheral Nerve Block: Patient did not receive a nerve block
[2021-03-13 13:06] VITALS: BP 110/60; PULSE 74; RESP 16; TEMP 36.5; O2SAT 100
== END 2021-03-13 13:30 | disposition home or self-care (01) ==
LOC: SUR 10:23
PROVIDERS: PCP Family Medicine; Visit Provider Surgery
PROC: 0DJD8ZZ Inspection of Lower Intestinal Tract, Via Natural or Artificial Opening Endoscopic (ICD-10-PCS; CPT 45330; principal; 2021-03-13 11:15)
PROC: 0DJ68ZZ Inspection of Stomach, Via Natural or Artificial Opening Endoscopic (ICD-10-PCS; CPT 43235; 2021-03-13 11:15)
DX: Z09 Encounter for follow-up examination after completed treatment for conditions other than malignant neoplasm (principal); D13.2 Benign neoplasm of duodenum; K31.89 Other diseases of stomach and duodenum; D12.8 Benign neoplasm of rectum; Z98.0 Intestinal bypass and anastomosis status; K21.00 Gastro-esophageal reflux disease with esophagitis, without bleeding; K31.7 Polyp of stomach and duodenum; K25.9 Gastric ulcer, unspecified as acute or chronic, without hemorrhage or perforation
CPT/HCPCS: 46606; 43239; 88305; J2001

== ENCOUNTER 2022-01-19 01:19 | Outpatient (CLI) | payer OTHER, SELFPAY ==
[2022-01-19 12:26] LABS: Source Nasal/Nares
[2022-01-19 15:35] LABS: COVID-19 PCR Negative (Negative)
== END 2022-01-19 01:20 | disposition home or self-care (01) ==
LOC: LBO 01:19
PROVIDERS: PCP Family Medicine; Visit Provider Surgery
DX: Z01.818 Encounter for other preprocedural examination (principal); Z20.822 Contact with and (suspected) exposure to COVID-19
CPT/HCPCS: 87635

== ENCOUNTER 2022-01-22 07:42 | Day surgery (SDC) | payer OTHER, SELFPAY ==
--- NOTE | 2022-01-22 07:03 | ENDO_ITS ---
Date of service: 01/22/22 Time of Service: 09:45 Endoscopy Report DATE OF PROCEDURE: 01/22/22 PRE-OP DIAGNOSIS: Familial polyposis syndrome POST-OP DIAGNOSIS: same PROCEDURE: 1. EGD with biopsies 2. Colonoscopy with biopsies SURGEON: Beatriz Baez ANESTHESIA TYPE: General LMA/ETT ESTIMATED BLOOD LOSS: 5 PATHOLOGY: other (multiple biopsies) COMPLICATIONS: None DISPOSITION: same day INDICATIONS: Chance is back to see me for a follow-up on his upper and lower endoscopy.? His last upper and lower endoscopy were done at [facility] about 6 months ago.? It was recommended that he follow-up in 6 months.? He is also had some uncomfortable, sore feeling in the rectal area when he sits.? It is intermittent.? It does usually happen more if he has not been good about his diet and gets more diarrhea.? His mom did from colon cancer so he is a little bit worried about these new symptoms.? He did have a sessile serrated adenoma of the rectal cuff 6 months ago.? He is also noted to have some tubular adenomas in the duodenum.? Recommendation is for follow-up EGD and colonoscopy.? The procedure and risks were discussed.? The prep was reviewed in detail.? Risks, benefits and complications have been reviewed. Complications include but are not limited to bleeding, pain, perforation, missed small lesion/polyp, sore throat, aspiration and adverse reaction to the medications. Questions were entertained and answered to their satisfaction and they wished to proceed. No guarantees were given or implied. PREP: Miralax/Dulcolax FINDINGS: inflammation in the stomach and esophagus No polyps in the duodenum inflammation and ulceration in the rectal cuff and the small intestine PROCEDURE DESCRIPTION: After informed consent was obtained the patient was take to the procedure room and placed in a supine position. Monitors were applied and a time out was done. The patients name, date of , procedure type, allergies to medications and metal in their body was reviewed. A bite block was placed and the patient was sedated. Once sedated and comfortable the gastroscope was advanced through the oropharynx which was grossly normal into the esophagus. The proximal and mid- esophagus were normal. In the distal esophagus there was mild inflammation noted. The scope was advanced into the stomach and through the pylorus into the 3rd portion of the duodenum. The duodenum was noted to be normal. Biopsies were done throughout. The scope was retracted back into the stomach. There was mild antral and body inflammation noted. Biopsies were done to rule out H. pylori. There were no ulcers. The scope was retro-flexed. The cardia and fundus were noted to be normal. There was no hiatal hernia noted. The scope was retracted back into the esophagus and biopsies were done of the GE junction to rule out Gilliland's. The Z line was regular. The GE junction was at 30 cm. There was some inflammation at the proximal esophagus. While the patient was still sedated they were placed in a left decubitous position. A rectal exam was done. External exam was normal. Internal exam revealed a normal sphincter tone and no palpable masses. The prostate felt smooth. The scope was then introduced and retro-flexed. no internal hemorrhoids, masses or polyps were identified on retroflexion. The scope was then advanced to 30 cm. Biopsies were done at 20, 15, 10 and 8 cm and at the rectal cuff. There was some ulceration noted at 8 cm which was biopsied. The scope was removed and the patient was woken up and taken back to Same day surgery in stable condition. The patient tolerated the procedure well and there were no immediate complications.
--- NOTE | 2022-01-22 07:04 | W.PM.DSUDISC ---
Discharge Plan Disposition Patient Disposition: HOME Condition: Good Discharge Details Reason For Visit: FAP Attending Provider: Beatriz Baez Primary Care Provider: Darian Torrez Home Meds and New Rx's Prescriptions: Continued testosterone cypionate [Depo-Testosterone] 200 mg/mL oil 150 mg IM QWEEK Qty: 4 5RF levothyroxine 112 mcg capsule 112 mcg PO DAILY Qty: 90 3RF Discontinued polyethylene glycol 3350 17 gram/dose powder 17 g PO ONCE Qty: 238 0RF Rx Instructions: To be taken as directed by prescriber's office for colonoscopy prep. No Action (DME) syringe with needle, safety [Easy Touch SheathLock Syrg-Ndl] 3 mL 22 gauge x 1 syringe See Rx Instructions .ROUTE .MEDSUPPLY Qty: 20 0RF Rx Instructions: inject every 2 weeks Discharge Instructions Additional Instructions: Findings: some inflammation in the stomach and esophagus Irritation at the rectal cuff. Follow up: 6 mo - 1 yr Please call if you develop: fevers >101.5 Nausea or Vomiting Abdominal pain that is not transient Rectal bleeding that is more then a tbsp A hard abdomen and inability to pass gas DAY SURGERY UNIT POST ENDOSCOPY INSTRUCTIONS Instructions for everyone who is given Anesthesia: For your safety, please do the following for the next 24 Hours: a. Do not drive or operate dangerous equipment b. Do not drink alcohol beverages or use any recreational drugs for the first 24 hours or while taking pain medications. The medications in your body may have a reaction that can be dangerous. c. Do not make any important decisions or sign any important papers 1. Generally there are no restrictions on your activity after a day or so has gone by, but you may feel a bit fatigued for a few days. 2. After you arrive home you may have a light meal and return to a normal diet as you can tolerate it without feeling sick to your stomach. 3. After surgery, you may feel pain or discomfort. This should be only transient, but if it persists please contact your doctor. 4. If there are any questions regarding the findings of your procedure, please feel free to contact your doctor. 6. If you are unable to contact your doctor with a problem, contact the hospital at [phone]. 7. Continue all your regular medications unless directed otherwise. I understand the above instructions and have no questions. Signature of Patient or Responsible Adult Escort Date/Time Name of Responsible Adult Escort Signature of Nurse Date/Time Activity:: Activity as Tolerated Diet:: As Tolerated Discharge Orders Discharge Orders: Discharge Order (Routine); Ordered 01/22/22 Ordered By: Beatriz Baez
[2022-01-22 08:14] VITALS: BP 119/67; PULSE 64; RESP 16; TEMP 36.5; O2SAT 98
[2022-01-22] MEDS: Lactated Ringers 1,000 ML 80 ML IV (08:38)
--- NOTE | 2022-01-22 09:30 | W.ANESPRE ---
General Info Date of Service Date Performed: 01/22/22 Height: 5 ft 11 in Weight: 143.8 kg Body Mass Index (BMI): 44.1 Surgical Procedure: Operation Date: 01/22/22 09:35 Proposed Procedure Side Surgeon p Flex Sigmoidoscopy/Gastroscopy Beatriz Baez MD Meds Allergies and Home Medications Allergies Allergy/AdvReac Type Severity Reaction Status Date / Time doxycycline AdvReac Intermediate heartburn Verified 01/22/22 08:11 Home Medication Medication Instructions Recorded syringe with needle, safety 3 mL #20 ea 10/19/20 22 gauge x 1 (Easy Touch SheathLock Syringe with Needle) testosterone cypionate 200 mg/mL 150 mg (0.75 mL) IM QWEEK #4 mL 06/01/21 intramuscular oil (Depo-Testosterone) levothyroxine 112 mcg capsule 112 mcg PO DAILY #90 caps 08/07/21 polyethylene glycol 3350 17 17 g PO ONCE #238 grams 01/09/22 gram/dose oral powder Current Visit Medications: Current Medications Generic Name Dose Route Start Last Admin Trade Name Ronnyq PRN Reason Stop Dose Admin Hyoscyamine Sulfate 0.125 mg 01/22/22 07:04 Hyoscyamine 0.125 Mg Sl/Oral/Chew SL DIRECTED PRN Ringer's Solution 1,000 mls @ 80 mls/hr 01/22/22 06:00 01/22/22 08:38 IV 02/18/22 23:59 80 mls/hr INFUSION ARIANA Administration IV Miscellaneous Supplies 1 each 01/22/22 06:00 Iv Access IV 02/18/22 23:59 DIRECTED ARIANA Ondansetron HCl 4 mg 01/22/22 07:04 Ondansetron 4 Mg/2 Ml Vial IVP Q4H PRN PRN Nausea / Vomiting Sodium Chloride 0 ml 01/22/22 06:00 Normal Saline Flush 10 Ml Syr IV 02/18/22 23:59 PRN PRN Sodium Chloride 0 ml 01/22/22 06:00 Normal Saline 10 Ml Vial IJ 02/18/22 23:59 DIRECTED PRN Sterile Water 0 ml 01/22/22 06:00 Water,Injection,Sterile 10 Ml Vial IJ 02/18/22 23:59 DIRECTED PRN PFSH Active Problems Active Problems: Problem Status Onset Code Abdominal pain R10.9 Bronchospasm J98.01 Right inguinal pain R10.31 Bilateral inguinal hernia K40.20 Hypogonadism Low testosterone in male R79.89 Sleep apnea G47.30 CPAP (continuous positive airway pressure) dependence Z99.89 Tubular adenoma ~07/2020 D36.9 Palpitations R00.2 SVT (supraventricular tachycardia) I47.1 Familial polyposis of colon D12.6 Seasonal allergies J30.2 Otitis media H66.90 URI (upper respiratory infection) J06.9 Family history of familial adenomatous polyposis Z83.71 Tubular adenoma of colon 05/03/14 D12.6 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 PROCTOSCOPY 05/03/142019 Tobacco Smoking/Tobacco Use Status: Never Second hand exposure: No Alcohol Alcohol Intake: current Alcohol intake frequency: a few times a month Alcohol type: beer Substance Use Substance use type: does not use Vital Signs and Lab Results Vital Signs Most Recent Vital Signs in EMR: Most Recent Vital Signs Temp Pulse Resp BP Pulse Ox 36.5 C 64 16 119/67 98 01/22/22 08:14 01/22/22 08:14 01/22/22 08:14 01/22/22 08:14 01/22/22 08:14 Lab Results Blood Type / Crossmatch: No Data to Display Complete Blood Count: No Data to Display Complete Metabolic Panel: No Data to Display Liver Function Panel: No Data to Display Coagulation Panel: No Data to Display Cardiac Panel: No Data to Display Arterial Blood Gas: No Data to Display Venous Blood Gas: No Data to Display Pancreas Panel: No Data to Display Thyroid Panel: No Data to Display Infectious Disease: Coronavirus (COVID-19)(PCR) Negative (Negative) 01/19/22 08:00 Coronavirus 2019 Source Nasal/Nares 01/19/22 08:00 Blood Cultures: No Data to Display Toxicology Panel: No Data to Display Imaging and Studies Imaging and Studies Study information below may be from another EMR and interpreted by another provider. Please see original notes in EMR for more complete details. Stress Test Summary: 01/2015: LVEF 60-65%, no hemodynamically sig valve lesion. Anesthesia Assessment and Plan Anesthesia History Personal History: No History of Anesthesia Complications Family History: No Family History of Anesthesia Complications Exercise Tolerance Exercise Tolerance: Metabolic Equivalents>4 Pertinent Negatives Pertinent Negatives: No Symptoms of GERD, No Major Cardiovascular Symptoms or Complaints, No Major Pulmonary Symptoms or Complaints (BONNY uses CPAP every night ) and No History of CVA/TIA Cardiac & Pulmonary Exam Cardiac Exam: Normal S1/S2 Heart Sounds Pulmonary Exam: Clear Bilateral Breath Sounds Implantable Cardiac Device Does patient have a Pacemaker or an ICD?: No Airway Exam Known Difficult Airway: No Mallampati Class: 3 Mouth Opening: Narrow (< 3cm) Thyromental Distance: Greater than 3 cm Neck Range of Motion: Full ROM Neck Circumference: Thick Teeth Condition: Normal Dentition ASA Classification ASA Score: ASA 3 Emergency Case?: No NPO Status NPO Status: NPO Clears >2 hours, Solids >8 hours Anesthesia Plan Resuscitation Status: Full Code Anesthesia Technique: General Anesthesia Airway Planned: Natural Airway Monitors Used: Standard Monitors
[2022-01-22 09:34] VITALS: BMI 44.1
--- NOTE | 2022-01-22 09:50 | BOWEL_PTH ---
PATIENT: Wilbert Saenz LOC: [facility] U#:[id number] AGE/SX: 41/M ROOM: RE01/22/[address]: Beatriz Baez MD : 1980 BED: DIS: 01/22/2022 SPEC #: [id number] RECD: 01/22/22 12:57 STATUS: [facility] #: [id number] ZOË: 01/22/22 09:[address]: Beatriz Baez DEPT: Surgical Specimen RECD BY: Amina Rowland ENTERED: 01/22/22 13:01 SP TYPE: Bowel OTHR DR: Darian Torrez MD Tissues: 1 - BIOPSY BOWEL 2 - STOMACH BIOPSY 3 - ESOPHAGUS BIOPSY 4 - ESOPHAGUS BIOPSY 5 - BIOPSY BOWEL 6 - BIOPSY BOWEL 7 - BIOPSY BOWEL 8 - BIOPSY BOWEL 9 - BIOPSY BOWEL Procedures: GROSS AND MICRO LEVEL 4 Comments: [id number]
[2022-01-22 10:28] VITALS: BP 108/62; PULSE 68; RESP 18; TEMP 36.3; O2SAT 94
--- NOTE | 2022-01-22 10:31 | W.ANESPOSTOP ---
Postoperative Evaluation Date, Time and Location Date Performed: 01/22/22 Time Performed: 10:31 Patient Location: Day Surgery Unit Vital Signs Most Recent Imported Vital Signs: Most Recent Vital Signs Temp Pulse Resp BP Pulse Ox 36.5 C 64 16 119/67 98 01/22/22 08:14 01/22/22 08:14 01/22/22 08:14 01/22/22 08:14 01/22/22 08:14 Most Recent Manually Entered Vital Signs: Adult Blood Pressure: 108/62 Heart Rate: 79 Respirations: 12 Oxygen Saturation (%): 96 Temperature (C): 36.3 C Pain Score (0-10 Scale): 0 Assessment Mental Status: Awake (Alert & Oriented to Patient Baseline) Airway and Respiratory Function: Patent airway with normal (patient baseline) respiratory exam Cardiovascular Function: Hemodynamically Stable Hydration Status: Adequately Hydrated Nausea & Vomiting: No Nausea or Vomiting Pain: Pt. Denies Any Pain Peripheral Nerve Block: Patient did not receive a nerve block
[2022-01-22 10:32] VITALS: BP 108/62; PULSE 79; RESP 12; TEMPC 36.3; O2SAT 96
[2022-01-22 10:55] VITALS: BP 114/72; PULSE 66; RESP 16; TEMP 36.3; O2SAT 99
== END 2022-01-22 11:30 | disposition home or self-care (01) ==
LOC: SUR 07:42
PROVIDERS: PCP Family Medicine; Visit Provider Surgery
PROC: (CPT 45380; principal; 2022-01-22 09:30)
DX: K62.6 Ulcer of anus and rectum (principal); K29.70 Gastritis, unspecified, without bleeding; R10.9 Unspecified abdominal pain; Z80.0 Family history of malignant neoplasm of digestive organs; Z86.010 Personal history of colon polyps; Z90.49 Acquired absence of other specified parts of digestive tract; Z98.0 Intestinal bypass and anastomosis status; K22.89 Other specified disease of esophagus; K31.89 Other diseases of stomach and duodenum; K62.89 Other specified diseases of anus and rectum
CPT/HCPCS: 45380; 43239; 88305

== ENCOUNTER 2022-04-17 03:38 | Outpatient (CLI) | payer OTHER, SELFPAY ==
[2022-04-17 08:51] LABS: Hemoglobin A1C 5.4 % (<5.7)
[2022-04-17 09:01] LABS: Calculated LDL 75 mg/dL (<100); Cholesterol 128 mg/dL (<200); HDL Cholesterol 40 mg/dL (40-60); TSH 2.35 uIU/mL (0.36-3.74); Triglyceride 66 mg/dL (<150)
[2022-04-20 16:24] LABS: Testosterone, Free 8.62 ng/dL (4.65-18.1); Testosterone, Total 287 ng/dL (240-950)
== END 2022-04-17 03:39 | disposition home or self-care (01) ==
PROVIDERS: PCP Family Medicine; Visit Provider Family Medicine
DX: E78.5 Hyperlipidemia, unspecified (principal); E03.9 Hypothyroidism, unspecified; R73.9 Hyperglycemia, unspecified; Z00.00 Encounter for general adult medical examination without abnormal findings
CPT/HCPCS: 36415; 80061; 84402; 84403; 83036; 84443

== ENCOUNTER 2022-04-18 03:45 | Outpatient (CLI) | payer OTHER, SELFPAY ==
[2022-04-22 18:51] LABS: Testosterone, Free 7.73 ng/dL (4.65-18.1); Testosterone, Total 283 ng/dL (240-950)
== END 2022-04-18 03:46 | disposition home or self-care (01) ==
LOC: LBO 03:45
PROVIDERS: PCP Family Medicine; Visit Provider Family Medicine
DX: Z00.00 Encounter for general adult medical examination without abnormal findings (principal)
CPT/HCPCS: 36415; 84402; 84403

== ENCOUNTER 2022-07-24 15:17 | Inpatient (IN) | payer OTHER, SELFPAY ==
[2022-07-24] VITALS (9 sets, daily range): BP systolic 121–133; BP diastolic 76–85; PULSE 81–95; RESP 14–22; TEMP 36.1–36.9; O2SAT 89–98
--- NOTE | 2022-07-24 15:52 | ED.GENADUL_ITS ---
Discharge Plan Disposition Patient Disposition: Admit to [facility] Condition: Stable Discharge Details Clinical Impression: Small bowel obstruction Admit Date/Time: 07/24/22 18:22 Admit Provider: Cuong Bravo Attending Provider: Cuong Bravo Primary Care Provider: Darian Torrez ED Provider: Manuela Mclaughlin Medical Decision Making 42-year-old male with a past medical history of colectomy, SVT, GERD, hypothyroidism presents to the ER with a chief complaint of abdominal pain. He reports that he is having periumbilical cramping no nausea or vomiting. He reports that this feels like when he has had obstruction in the past. He states that usually he is given Zofran and Valium and that relaxes his muscles and it resolves on its own. Denies any other associated symptoms. 1640: Patient reports pain is worsening. I will order morphine and CT abdomen pelvis. CBC shows white blood cell count of 12.34, absolute neutrophils 9.45, CMP within normal limits sodium potassium within normal limits, alk phos 121, lipase 33. 1823: Spoke with Dr. Lou who is on-call for general surgery regarding patient case and details he recommends NG tube and admission, holding orders placed. Discussed plan of care with patient who verbalizes understanding and is in agreement with place. 1910: Patient complaining of worsening pain, NG tube is in place by staff accountant. Morphine 4 mg IV ordered. Awaiting transfer to floor. Patient transported to floor in hemodynamically stable condition. This text was generated using [employer] dictation system, please disregard any oddities of phrase or misspellings. Medical Records Medical records reviewed: Yes I reviewed the patient's medical records. Lab Data Lab results reviewed: Yes I reviewed the patient's lab results. Labs: Laboratory Tests Range/Units 07/24/22 07/24/22 15:48 15:48 WBC (4.4-10.8) 10^3/uL 12.34 H RBC (4.36-5.78) 10^6/uL 5.52 Hgb (13.5-17.5) g/dL 16.5 Hct (40.0-50.0) % 49.5 MCV (80-95) fL 90 MCH (27.0-33.0) pg 29.9 MCHC (32.0-36.0) % 33.3 RDW (11.8-14.1) % 12.4 Plt Count (130-400) 10^3/uL 329 MPV (8.0-11.0) fL 9.7 Immature Gran % 0.2 Neutrophils % 76.6 Lymphocytes % 13.3 Monocytes % 7.5 Eosinophils % 1.8 Basophils % 0.6 Nucleated RBC % (0.0-0.3) % 0.0 Absolute Neutrophils (1.2-6.7) 10^3/uL 9.45 H Absolute Lymphocytes (1.2-3.4) 10^3/uL 1.64 Absolute Monocytes (0.1-0.8) 10^3/uL 0.93 H Absolute Eosinophils (0.0-0.7) 10^3/uL 0.22 Absolute Basophils (0.0-0.2) 10^3/uL 0.07 Sodium (136-145) mmol/L 140 Potassium (3.5-5.1) mmol/L 3.8 Chloride (98-107) mmol/L 104 Carbon Dioxide (21.0-32.0) mmol/L 27.5 Anion Gap (3-11) mmol/L 8.5 BUN (7-18) mg/dL 13 Creatinine (0.70-1.30) mg/dL 1.0 Est GFR (CKD-EPI 2020) (mL/min/1.73m2) 97.58 Glucose (74-106) mg/dL 91 Calcium (8.5-10.1) mg/dL 9.1 Magnesium (1.8-2.4) mg/dL 2.1 Total Bilirubin (0.2-1.0) mg/dL 0.6 AST (15-37) U/L 32 ALT (16-63) U/L 47 Alkaline Phosphatase (46-116) U/L 121 H Total Protein (6.4-8.2) g/dL 8.0 Albumin (3.4-5.0) g/dL 3.9 Lipase (16-77) U/L 33 HPI General Mode of arrival: ambulatory . Date/Time Provider Initiated Documentation: 07/24/22 15:40 . Limitations to Documentation: no limitations . Information obtained by: patient, RN notes reviewed and old records reviewed . HPI Narrative: 42-year-old male with a past medical history of colectomy, SVT, GERD, hypothyroidism presents to the ER with a chief complaint of abdominal pain. He reports that he is having periumbilical cramping no nausea or vomiting. He reports that this feels like when he has had obstruction in the past. He states that usually he is given Zofran and Valium and that relaxes his muscles and it resolves on its own. Denies any other associated symptoms. Related Data Home Medications Medication Instructions Recorded Confirmed levothyroxine 112 mcg capsule 112 mcg PO DAILY #90 caps 08/07/21 07/24/22 testosterone 2 pump topical DAILY #75 grams 04/26/22 07/24/22 benzonatate 200 mg capsule 200 mg PO TID #30 caps 05/08/22 05/08/22 Previous Rx's Medication Instructions Recorded levothyroxine 112 mcg capsule 112 mcg PO DAILY #90 caps 08/07/21 testosterone 2 pump topical DAILY #75 grams 04/26/22 benzonatate 200 mg capsule 200 mg PO TID #30 caps 05/08/22 Allergies Allergy/AdvReac Type Severity Reaction Status Date / Time doxycycline AdvReac Intermediate heartburn Verified 07/24/22 15:30 General Stated Complaint: Abd Prob JANELL: 3 Review of Systems All systems reviewed & are unremarkable except as noted in HPI and below Gastrointestinal Gastrointestinal: Reports abdominal pain PFSH All Active Problems (Updated 07/24/22 @ 18:28 by Manuela Mclaughlin NP) Small bowel obstruction (Acute) Hypogonadism in male (Acute) Hypothyroidism (Chronic) Abdominal pain (Acute) Bronchospasm (Acute) Right inguinal pain (Acute) Bilateral inguinal hernia (Acute) Low testosterone in male (Acute) Sleep apnea (Acute) CPAP (continuous positive airway pressure) dependence (Acute) Tubular adenoma (Acute ~07/2020) on EGD, repeat 6 months Palpitations (Acute) SVT (supraventricular tachycardia) (Chronic) Familial polyposis of colon (Acute) family hx-has routine proctoscopies with Dr. 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 states it wasn't chest pain but acid reflux Medical History Familial polyposis Sleep apnea Surgical History Anoscopy (03/2021) 2021. acute and chronic inflammation. with biopsy - flat, low grade dysplasia H/O colectomy (~2002) Per Dr Fulton's office note dated 04/13/13 patient was 10 years s/p total abdominal colectomy proctectomy with ileoanal anastamosis for a FAP. History of esophagogastroduodenoscopy (EGD) (~01/2022) PROCTOSCOPY 05/03/14, 2019 Family History Mother , age 60 Colon cancer Father Hyperlipidemia Sister Cancer ?thyroid cancer Maternal Grandfather , age 80 No problems noted. Paternal Grandfather , age 50 No problems noted. Maternal Grandmother No problems noted. Paternal Grandmother , age 80 No problems noted. Social History Smoking/Tobacco Use Status: Never Second Hand Exposure: No Smoking risk assessment performed?: Yes Alcohol Intake: current Alcohol Intake frequency: a few times a month Alcohol type: beer Drug use: Never Substance use type: does not use Caregiver/Support person: No Household members: spouse, family and children Housing: house Communication Needs: None Do you need help understanding health information?: Never Pets and animals: Yes Pets and animals: cat(s) and dog(s) Sexually active: Yes Do you think of yourself as: straight/heterosexual Current gender identity: male What is your relationship status?: How often do you talk on the phone with friends or family?: three or more times per week How often do you get together with friends or relatives?: once per week How often do you attend mormonism or latter-day services?: decline to answer Do you belong to any clubs or organized social groups?: no Panel score (0-1 are the most socially isolated patients): 2 What type of physical activity do you participate in: none Duration: < 15 minutes/day Frequency: 1-2 times per week Alivia/Yarsani: No preference Special alivia needs: No Seatbelt use: always Helmet use: Yes Helmet use: always Drive intox or ride w/intox petroleum transport driver: No Do you feel safe at home: Yes Do you feel safe in your relationship?: Yes Victim of physical abuse: No Victim of emotional abuse: No Would you like helpful sources: No Exam Narrative Exam Narrative: Constitutional: Alert and oriented x3. Appears stated age. Normal body habitus. Head: Normocephalic, no trauma. Eyes: Pupils PERRL, Red reflex noted, EOM's intact. Eyelids symmetrical without lesions, discharge, or swelling. ENT: Bilateral TM's WNL, External ear normal to inspection, no mastoid TTP, swelling, or erythema, Nasal turbinates WNL, no nasal discharge. Normal dentition, Posterior pharynx WNL, no exudate. Chest: RRR, Normal S1, S2, distal pulses intact. Resp: Lungs clear to auscultation bilaterally, no wheezes, rales, or rhonchi. Abdomen: Musculoskeletal: Normal gait, 5/5 strength to all four extremities. Skin: No suspicious rashes or lesions. Capillary refill less than 2 sec. Neurologic: Cranial nerves II-XII intact. Alert and oriented x 3. Motor: No deficits noted. Sensory: Intact bilaterally all 4 extremities. Reflexes: DTR's intact bilaterally.. Hematologic/Lymphatic: No ecchymosis, no lymphadenopathy. Course Vital Signs Vital signs: Vital Signs Pulse 82 07/24/22 15:27 Blood Pressure 133/85 07/24/22 15:27 Pulse Oximetry 98 07/24/22 15:27 Pulse 82 07/24/22 15:27 Respiratory Effort Normal, Non-Labored 07/24/22 15:31 Blood Pressure 133/85 07/24/22 15:27 Blood Pressure Position Sitting 07/24/22 15:27 Pulse Oximetry 98 07/24/22 15:27 Oxygen Delivery Method Room Air 07/24/22 15:27 Oxygen Flow Rate 0 07/24/22 15:27 PAWSS Have you Been Recently Intoxicated or Drunk Within the Last 30 days?: No Have you Ever Experienced Previous Episodes of Alcohol Withdrawal?: No Have you ever Experienced Withdrawal Seizures?: No Have you ever Experienced Delirium Tremens(DT)s?: No Have you ever undergone Alcohol Rehabilitation Treatment (i.e, inpt ot outpatient treatment programs)?: No Have you ever Experienced Blackouts?: No Have you ever Combined Alcohol with other Downers within the last 90 days?: No Have you ever Combined Alcohol with any other Substance of Abuse during the last 90 days?: No Positive Blood Alcohol level on Presentation? [PCS.BAL]: No Evidence of Increased Autonomic Activity (i.e. HR>120, tremor, sweating, agitation, nausea)?: No Result: 0
[2022-07-24 15:55] LABS: Abs Immature Grans 0.03 10^3/uL (0.0-0.06); Absolute Eosinophil Count 0.22 10^3/uL (0.0-0.7); Absolute Lymphocyte Count 1.64 10^3/uL (1.2-3.4); Absolute Neutrophil Count 9.45 10^3/uL (1.2-6.7); Basophils % 0.6; Eosinophils % 1.8; HCT 49.5 % (40.0-50.0); HGB 16.5 g/dL (13.5-17.5); Immature Grans % 0.2; Lymphocytes % 13.3; MCH 29.9 pg (27.0-33.0); MCHC 33.3 % (32.0-36.0); MCV 90 fL (80-95); MPV 9.7 fL (8.0-11.0); Monocytes % 7.5; Neutrophils % 76.6; Platelet Count 329 10^3/uL (130-400); RBC 5.52 10^6/uL (4.36-5.78); RDW 12.4 % (11.8-14.1); RDW-SD 41.2 fL; WBC 12.34 10^3/uL (4.4-10.8)
[2022-07-24 15:57] LABS: Absolute Basophil Count 0.07 10^3/uL (0.0-0.2); Absolute Monocyte Count 0.93 10^3/uL (0.1-0.8)
[2022-07-24] MEDS: diazePAM 10 MG/2 ML SYR 5 MG IVP ×3 (16:07→19:20)
[2022-07-24] MEDS: Ondansetron 4 MG/2 ML VIAL IVP ×2 (16:08→21:20)
[2022-07-24] MEDS: Normal Saline 1,000 ML 1000 ML IV (16:08)
[2022-07-24 16:16] LABS: ALT 47 U/L (16-63); AST 32 U/L (15-37); Albumin 3.9 g/dL (3.4-5.0); Alkaline Phosphatase 121 U/L (46-116); Anion Gap 8.5 mmol/L (3-11); BUN 13 mg/dL (7-18); Bilirubin, Total 0.6 mg/dL (0.2-1.0); CO2 27.5 mmol/L (21.0-32.0); Calcium 9.1 mg/dL (8.5-10.1); Chloride 104 mmol/L (98-107); Estimated GFR 97.58 (mL/min/1.73m2); Glucose 91 mg/dL (74-106); Lipase 33 U/L (16-77); Magnesium 2.1 mg/dL (1.8-2.4); Potassium 3.8 mmol/L (3.5-5.1); Sodium 140 mmol/L (136-145)
--- NOTE | 2022-07-24 16:30 | DI.CT_ITS ---
Exam(s) CT ABDOMEN PELVIS W EXAM: CT ABDOMEN PELVIS W CLINICAL HISTORY: Abd Pain, Hx of Colectomy, R/O SBO TECHNIQUE: Imaging Protocol: Axial computed tomography images with coronal and sagittal reformatted images were created and reviewed CONTRAST MATERIAL: Intravenous: Omnipaque 350 Contrast volume:100 mL Oral: yes / no COMPARISON: No exams were available for comparison FINDINGS: ABDOMEN: Lung Bases: There is a small pericardial effusion. Liver: Normal density. No measurable mass. The liver is mildly enlarged measuring 17.5 cm in length. Portal, Superior Mesenteric, and Splenic Veins: Unremarkable. Gallbladder and Biliary Tract: No radiodense calculus or dilation. Pancreas: Normal density, no abnormal calcifications or inflammatory process. Spleen: Normal. Adrenals: There is a 1.8 cm hypodense left adrenal nodule. There is a 1.1 cm hypodense right adrenal nodule. Kidneys: Normal size, contour and axis. No radiodense stones or obstructive uropathy. No masses seen. Abdominal Aorta: Abdominal portion non-dilated. Bowel: The patient has had a prior colectomy. There is an entero rectal anastomosis. There are dila lazara small bowel loops seen in the pelvis. There are fluid-filled. The mesentery in this area appear s to be retracted which may result in tethering of the bowel. The bowel distal to this point is of n ormal caliber. No bowel wall thickening is seen. Peritoneal Cavity: No ascites is present. There is mild infiltration in the mesentery. No free air. Lymph Nodes: Within normal limits. Bones: Within normal limits for the patient's age. Soft Tissues: There is a 2.4 x 3.7 cm fluid density subcutaneous lesion along the left flank. There is a small fat containing umbilical hernia. PELVIS: Bladder: Symmetric distention, no gross wall thickening. Reproductive Organs: Unremarkable as visualized. Lymph Nodes: Within normal limits. Bones: Within normal limits for the patient's age. IMPRESSION: 1. Findings suspicious for a mid to distal small bowel obstruction which may be secondary to adhesion s. Both the proximal distal small bowel is of normal caliber. 2. Bilateral adrenal nodules including a 1.8 cm hypodense left adrenal nodule. Nonemergent CT or MRI of the adrenal glands according to the adrenal protocol is recommended. 3. 2.4 x 3.7 cm fluid density low subcutaneous lesion in the left flank likely reflecting a sebaceous cyst. RADIATION DOSE DELIVERED: 1,600.56mGy.cm Total DLP DATA REPOSITORY: All CT scans at this facility are submitted to the National Radiology Data Registry (NRDR) Dose Index Registry (DIR) with the [employer] (ACR). RADIATION OPTIMIZATION: All CT scans at this facility use at least one of these dose optimization te chniques: automated exposure control; mA and/or kV adjustment per patient size (includes targeted exa ms where dose is matched to clinical indication); or iterative reconstruction.
[2022-07-24] MEDS: MORPHine 4 MG/ML SYR IVP ×2 (16:53→19:25)
[2022-07-24] MEDS: Normal Saline Flush 10 ML SYR IVP ×2 (16:57→23:42)
[2022-07-24] MEDS: Omnipaque 350 MG/ML 100 ML BTL IJ (17:00)
[2022-07-24] MEDS: Normal Saline - Diluent 50 ML VIAL IJ (17:03)
--- NOTE | 2022-07-24 17:38 | DI.VRAD_ITS ---
PROCEDURE INFORMATION: Exam: CT Abdomen And Pelvis With Contrast Exam date and time: 07/24/2022 4:50 PM Age: 42 years old Clinical indication: Abdominal pain; Prior surgery; Surgery type: Colonectomy TECHNIQUE: Imaging protocol: Computed tomography of the abdomen and pelvis with contrast. COMPARISON: CR XR CHEST 2V PA LATERAL 01/28/2019 11:29 AM FINDINGS: Liver: The liver is enlarged measuring 17.5 cm in craniocaudal length. There are no cysts or masses within the liver. Gallbladder and bile ducts: Normal. No calcified stones. No ductal dilation. Pancreas: Normal. No ductal dilation. Spleen: Splenules are present. The spleen itself appears unremarkable. Adrenal glands: There is a 2 cm left adrenal mass with minimal enhancement. This may be an adenoma. Suggest MRI or multiphasic CT examination for further assessment. The right adrenal gland is normal. Kidneys and ureters: Normal. No hydronephrosis. Stomach and bowel: The stomach has a moderate amount of fluid within it no wall thickening. The proximal portion of the small bowel is unremarkable. In the pelvic portion of the bowel loops are fluid-filled and mildly dilated to 3 cm. The mesentery is retracted to a central point tethering the bowel to the inferior portion of the posterior peritoneum. Beyond this location the bowel is imperceptible showing as a string of nondistention. The ileal pouch has a minimal amount of feces within it. Intraperitoneal space: Unremarkable. No free air. No significant fluid collection. Vasculature: Unremarkable. No abdominal aortic aneurysm. Lymph nodes: Unremarkable. No enlarged lymph nodes. Urinary bladder: Unremarkable as visualized. Reproductive: Unremarkable as visualized. Bones/joints: Unremarkable. The sacroiliac joints are patent. Soft tissues: Inseparable from the skin of the posterior left flank at the level of the L3 vertebra is a ovoid mass measuring 3.6 cm in length and up to 2.1 cm in diameter. The Hounsfield numbers are less than 0, this may be a sebaceous cyst. Small fat containing umbilical hernia. IMPRESSION: 1. High-grade obstruction of the mid to distal small bowel probably by adhesions. The small bowel distal to this location is very small. 2. There is a 2 cm left adrenal mass. Non-emergent adrenal CT is recommended. (Reference: Mallika) 3. Probable sebaceous cyst in the left back subcutaneous tissues. REFERENCES: Mallika CALHOUN, et al. Management of Incidental Adrenal Masses: A White Paper of the ACR Incidental Findings Committee. J Am Fei Radiol. 2017;14(8):5244-8582. Dictated and Authenticated by: Zac Garcia MD. Ordering:CHANDRA Roy MD
--- NOTE | 2022-07-24 19:30 | DI.RAD_ITS ---
Exam(s) XR ABD FLAT UPRIGHT PA CHEST EXAM: 2D digital imaging was performed. CLINICAL HISTORY: Post NGT placement. COMPARISON: CR XR CHEST 2V PA LATERAL from 01/28/[address] ABDOMEN PELVIS W from 07/24/2022 TECHNIQUE: Supine and upright abdomen and PA chest views were performed. Four images were obtained. FINDINGS: MEDIASTINUM: Normal. HEART: Normal. PULMONARY VASCULATURE: Normal. LUNGS: Clear. PLEURAL SPACE: No pleural effusion or pneumothorax. BONE:Within normal limits for the patient's age. OTHER FINDINGS:The tip of the nasogastric tube is seen in the stomach below the hemidiaphragm. BOWEL GAS PATTERN: Nondistended. FREE AIR: None. CALCIFICATIONS: No radiopaque calcifications. OSSEOUS STRUCTURES: Normal for age. OTHER FINDINGS: There is contrast seen in the renal collecting systems from the patient's CT scan per formed the same day. IMPRESSION: 1. Nonobstructive bowel gas pattern. 2. The enteric feeding tube is in good position with its tip located in the stomach. DATA REPOSITORY: RADIATION DOSE DELIVERED:
[2022-07-24] MEDS: ACETAMINOPHEN 1,000 MG/100 ML BTL 400 MG IVPB ×2 (20:45→23:36)
[2022-07-24 20:53] LABS: Source Nasal/Nares
--- NOTE | 2022-07-24 21:00 | DI.VRAD_ITS ---
PROCEDURE INFORMATION: Exam: XR Complete Acute Abdomen Series Including Chest Exam date and time: 07/24/2022 8:35 PM Age: 42 years old Clinical indication: Device placement; Gi device; Nasogastric tube TECHNIQUE: Imaging protocol: Radiologic exam. Complete acute abdomen series, including 2 or more views of the abdomen and a single view chest. COMPARISON: CT ABDOMEN PELVIS W 07/24/2022 4:50 PM FINDINGS: Tubes, catheters and devices: An enteric feeding tube is present, with its tip located in the stomach in good position. Lungs: Mild opacities in both bases may represent atelectasis or pneumonia. Pleural spaces: Normal. No pleural effusions. No pneumothorax. Heart/Mediastinum: Normal. No cardiomegaly. Gastrointestinal tract: Normal. No bowel dilation. Intraperitoneal space: Normal. No free air. Organs: Collecting systems are opacified from recent contrast administration for CT Bones/joints: Normal. No acute fracture. Soft tissues: Normal. IMPRESSION: Mild opacities in both bases may represent atelectasis or pneumonia. An enteric feeding tube is present, with its tip located in the stomach in good position. Dictated and Authenticated by: Sangeeta Bell MD. Ordering:CHANDRA Roy MD
[2022-07-24 21:12] LABS: COVID-19 PCR Negative (Negative)
[2022-07-24] MEDS: Lactated Ringers 1,000 ML 125 ML IV (21:18)
[2022-07-24] MEDS: MORPHine 10 MG/ML VIAL 2 MG IVP (21:21)
[2022-07-24] MEDS: MORPHine 2 MG/ML SYR IVP ×2 (22:30→23:42)
--- NOTE | 2022-07-24 22:49 | SCONE_ITS ---
Date of service: 07/24/22 Time of Service: 23:08 Assessment and Plan Assessment and plan (1) Small bowel obstruction: Status: Acute Assessment and plan: 42 yo man with mechanical SBO. His subjective report and clinical exam is not concerning to warrant emergent exploration. His CT scan shows dilated loops of small bowel and abrupt transition into decompressed loops . . . the distended loops are only moderately distended and show no signs of strangulation or bowel wall compromise. No free air or free fluid visible. Plan: NGT decompression, IVF, serial abdominal exams If worsens, we'll perform lap exploration Otherwise gastrograffin trial tomorrow. DVT prophylaxis analgesia prn History of Present Illness Narrative: 42 yo man has history of total abdominal colectomy with J-pouch ileoanal(ileorectal?) anastomosis for FAP. This was about 20 years ago. He presents with a SBO. He says I get these all the time and they go away on their own or with Valium. He does not have constant pain, but rather cramping, on-off discomfort. He thinks it is from eating coleslaw yesterday. He had BM and gas this AM, but none this afternoon. NGT has not had significant output since being placed in the ED. PFSH All Active Problems (Updated 07/24/22 @ 18:28 by Manuela Mclaughlin NP) Small bowel obstruction (Acute) Hypogonadism in male (Acute) Hypothyroidism (Chronic) Abdominal pain (Acute) Bronchospasm (Acute) Right inguinal pain (Acute) Bilateral inguinal hernia (Acute) Low testosterone in male (Acute) Sleep apnea (Acute) CPAP (continuous positive airway pressure) dependence (Acute) Tubular adenoma (Acute ~07/2020) on EGD, repeat 6 months Palpitations (Acute) SVT (supraventricular tachycardia) (Chronic) Familial polyposis of colon (Acute) family hx-has routine proctoscopies with Dr. 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 states it wasn't chest pain but acid reflux Medical History Familial polyposis Sleep apnea Surgical History Anoscopy (03/2021) 2021. acute and chronic inflammation. with biopsy - flat, low grade dysplasia H/O colectomy (~2002) Per Dr Fulton's office note dated 04/13/13 patient was 10 years s/p total abdominal colectomy proctectomy with ileoanal anastamosis for a FAP. History of esophagogastroduodenoscopy (EGD) (~01/2022) PROCTOSCOPY 05/03/142019 Family History Mother , age 60 Colon cancer Father Hyperlipidemia Sister Cancer ?thyroid cancer Maternal Grandfather , age 80 No problems noted. Paternal Grandfather , age 50 No problems noted. Maternal Grandmother No problems noted. Paternal Grandmother , age 80 No problems noted. Social History Smoking/Tobacco Use Status: Never Second Hand Exposure: No Smoking risk assessment performed?: Yes Alcohol Intake: current Alcohol Intake frequency: a few times a month Alcohol type: beer Drug use: Never Substance use type: does not use Caregiver/Support person: No Household members: spouse, family and children Housing: house Communication Needs: None Do you need help understanding health information?: Never Pets and animals: Yes Pets and animals: cat(s) and dog(s) Sexually active: Yes Do you think of yourself as: straight/heterosexual Current gender identity: male What is your relationship status?: How often do you talk on the phone with friends or family?: three or more times per week How often do you get together with friends or relatives?: once per week How often do you attend holiness or congregational services?: decline to answer Do you belong to any clubs or organized social groups?: no Panel score (0-1 are the most socially isolated patients): 2 What type of physical activity do you participate in: none Duration: < 15 minutes/day Frequency: 1-2 times per week Alivia/Religious: No preference Special alivia needs: No Seatbelt use: always Helmet use: Yes Helmet use: always Drive intox or ride w/intox driver engineer: No Do you feel safe at home: Yes Do you feel safe in your relationship?: Yes Victim of physical abuse: No Victim of emotional abuse: No Would you like helpful sources: No Exam Narrative Exam Narrative: Gen: Nontoxic, comfortable and interactive. Does not appear in distress or pain. Neuro: AxOx3 Psych: Good mood and affect, good insight and understanding Abdomen: Obese, soft, nontender, mild distention. Results Last Vital Signs Temp 98.4 F 07/24/22 20:45 Pulse 90 07/24/22 21:31 Resp 20 07/24/22 21:31 BP 130/76 07/24/22 21:31 Pulse Ox 93 07/24/22 21:31 Labs 07/24/22 15:48 07/24/22 15:48 Labs: Laboratory Results - last 24 hr 07/24/22 07/24/22 07/24/22 15:48 15:48 20:20 WBC 12.34 H RBC 5.52 Hgb 16.5 Hct 49.5 MCV 90 MCH 29.9 MCHC 33.3 RDW 12.4 Plt Count 329 MPV 9.7 Immature Gran % 0.2 Neutrophils % 76.6 Lymphocytes % 13.3 Monocytes % 7.5 Eosinophils % 1.8 Basophils % 0.6 Nucleated RBC % 0.0 Absolute Neutrophils 9.45 H Absolute Lymphocytes 1.64 Absolute Monocytes 0.93 H Absolute Eosinophils 0.22 Absolute Basophils 0.07 Sodium 140 Potassium 3.8 Chloride 104 Carbon Dioxide 27.5 Anion Gap 8.5 BUN 13 Creatinine 1.0 Est GFR (CKD-EPI 2020) 97.58 Glucose 91 Calcium 9.1 Magnesium 2.1 Total Bilirubin 0.6 AST 32 ALT 47 Alkaline Phosphatase 121 H Total Protein 8.0 Albumin 3.9 Lipase 33 COVID-19 Source Nasal/Nares SARS-CoV-2 (PCR) Negative
[2022-07-25] VITALS (18 sets, daily range): BP systolic 123–127; BP diastolic 68–77; PULSE 80–123; RESP 14–24; TEMP 35.6–37.3
[2022-07-25] MEDS: Enoxaparin 40 MG/0.4 ML SYR SC (00:25)
[2022-07-25] MEDS: Ondansetron 4 MG/2 ML VIAL IVP ×2 (00:25→03:33)
[2022-07-25] MEDS: MORPHine 2 MG/ML SYR IVP ×5 (00:25→05:50)
[2022-07-25 00:27] LABS: Bilirubin Small (Negative); Blood Negative (Negative); Clarity Clear (Clear); Glucose Negative (Negative); Ketones Negative (Negative); Leukocyte Esterase Negative (Negative); Nitrite Negative (Negative); Specific Gravity 1.025 (1.005-1.025); Urobilinogen 0.2 mg/dL (Up to 0.2)
[2022-07-25] MEDS: diazePAM 10 MG/2 ML SYR 5 MG IVP (00:37)
[2022-07-25 00:54] LABS: Bacteria Rare HPF (Negative); C & S Indicated? No; Casts 3-5 Fine Granular LPF (Negative); Crystals Negative HPF (Negative); Epithelial Cells Rare HPF (Negative); Mucus Negative (Negative); RBC 0-2 HPF (0-2); WBC 0-2 HPF (0-5)
[2022-07-25] MEDS: Lactated Ringers 1,000 ML 150 ML IV (04:11)
[2022-07-25] MEDS: ACETAMINOPHEN 1,000 MG/100 ML BTL 400 MG IVPB (04:46)
[2022-07-25 05:24] LABS: Lactate 1.4 mmol/L (0.6-1.4)
[2022-07-25 05:31] LABS: Abs Immature Grans 0.04 10^3/uL (0.0-0.06); Absolute Eosinophil Count 0.03 10^3/uL (0.0-0.7); Basophils % 0.3; Eosinophils % 0.2; HCT 48.4 % (40.0-50.0); HGB 16.2 g/dL (13.5-17.5); Immature Grans % 0.3; Lymphocytes % 3.1; MCH 30.6 pg (27.0-33.0); MCHC 33.5 % (32.0-36.0); MCV 92 fL (80-95); Monocytes % 6.8; Neutrophils % 89.3; Platelet Count 289 10^3/uL (130-400); RBC 5.29 10^6/uL (4.36-5.78); RDW 12.7 % (11.8-14.1); RDW-SD 42.4 fL; WBC 15.35 10^3/uL (4.4-10.8)
[2022-07-25 05:34] LABS: Anion Gap 6.2 mmol/L (3-11); BUN 15 mg/dL (7-18); CO2 29.8 mmol/L (21.0-32.0); CREATININE 1.2 mg/dL (0.70-1.30); Calcium 8.7 mg/dL (8.5-10.1); Chloride 103 mmol/L (98-107); Glucose 142 mg/dL (74-106); Potassium 4.5 mmol/L (3.5-5.1); Sodium 139 mmol/L (136-145)
[2022-07-25 06:02] LABS: Absolute Basophil Count 0.05 10^3/uL (0.0-0.2); Absolute Lymphocyte Count 0.48 10^3/uL (1.2-3.4); Absolute Monocyte Count 1.04 10^3/uL (0.1-0.8); Absolute Neutrophil Count 13.71 10^3/uL (1.2-6.7)
--- NOTE | 2022-07-25 08:11 | PGE_ITS ---
Date of Service Date of service: 07/25/22 Time of Service: 08:12 Assessment and Plan Assessment and plan (1) Small bowel obstruction: Status: Acute Assessment and plan: Wilbert is feeling much better this morning and his abdominal pain and cramping has resolved. NG tube in place with thin bile appearing fluid. May have sips of clears and ice chips. Abdomen is soft, non-tender with palpation. Continue IV fluids He has been receiving pain meds and Valium through the night with good effect. Will continue with watchful waiting, NG tube and IV fluids. If he has another (or more) BMs this morning, will d/c NG tube and trial clear liquids. Subjective Subjective Interval history since last seen: Wilbert reports that he is feeling better this morning. He had several small BMs through the night and a large BM this morning. He states that he is no longer having any abdominal pain or cramping. He is feeling like things are opening up. Exam Const General: cooperative, healthy appearing and comfortable Orientation: alert and oriented x3 Resp Effort & Inspection: normal respiratory effort, no audible wheezes and no cough GI Inspection: normal to inspection and non-distended Palpation: soft, no guarding and nontender Objective Last Vital Signs Temp 37.3 C 07/25/22 05:11 Pulse 94 H 07/25/22 00:00 Resp 20 07/25/22 05:00 BP 127/77 07/25/22 05:11 Pulse Ox 93 07/24/22 23:00 Laboratory Results - last 24 hr 07/24/22 07/24/22 07/24/22 15:48 15:48 20:20 WBC 12.34 H RBC 5.52 Hgb 16.5 Hct 49.5 MCV 90 MCH 29.9 MCHC 33.3 RDW 12.4 Plt Count 329 MPV 9.7 Immature Gran % 0.2 Neutrophils % 76.6 Lymphocytes % 13.3 Monocytes % 7.5 Eosinophils % 1.8 Basophils % 0.6 Nucleated RBC % 0.0 Absolute Neutrophils 9.45 H Absolute Lymphocytes 1.64 Absolute Monocytes 0.93 H Absolute Eosinophils 0.22 Absolute Basophils 0.07 VBG Lactate Sodium 140 Potassium 3.8 Chloride 104 Carbon Dioxide 27.5 Anion Gap 8.5 BUN 13 Creatinine 1.0 Est GFR (CKD-EPI 2020) 97.58 Glucose 91 Calcium 9.1 Magnesium 2.1 Total Bilirubin 0.6 AST 32 ALT 47 Alkaline Phosphatase 121 H Total Protein 8.0 Albumin 3.9 Lipase 33 Urine Color Urine Clarity Urine pH Ur Specific [place] Urine Protein Urine Ketones Urine Blood Urine Nitrite Urine Bilirubin Urine Urobilinogen Ur Leukocyte Esterase Urine RBC Urine WBC Ur Epithelial Cells Urine Crystals Urine Bacteria Urine Casts Urine Mucus Ur Culture Indicated? Urine Glucose COVID-19 Source Nasal/Nares SARS-CoV-2 (PCR) Negative 07/25/22 07/25/22 07/25/22 00:01 05:15 05:15 WBC RBC Hgb Hct MCV MCH MCHC RDW Plt Count MPV Immature Gran % Neutrophils % Lymphocytes % Monocytes % Eosinophils % Basophils % Nucleated RBC % Absolute Neutrophils Absolute Lymphocytes Absolute Monocytes Absolute Eosinophils Absolute Basophils VBG Lactate 1.4 Sodium 139 Potassium 4.5 Chloride 103 Carbon Dioxide 29.8 Anion Gap 6.2 BUN 15 Creatinine 1.2 Est GFR (CKD-EPI 2020) 78.40 Glucose 142 H Calcium 8.7 Magnesium Total Bilirubin AST ALT Alkaline Phosphatase Total Protein Albumin Lipase Urine Color Yellow Urine Clarity Clear Urine pH 5.0 Ur Specific [place] 1.025 Urine Protein Trace H Urine Ketones Negative Urine Blood Negative Urine Nitrite Negative Urine Bilirubin Small H Urine Urobilinogen 0.2 Ur Leukocyte Esterase Negative Urine RBC 0-2 Urine WBC 0-2 Ur Epithelial Cells Rare Urine Crystals Negative Urine Bacteria Rare Urine Casts 3-5 Fine Granular Urine Mucus Negative Ur Culture Indicated? No Urine Glucose Negative COVID-19 Source SARS-CoV-2 (PCR) 07/25/22 05:15 WBC 15.35 H RBC 5.29 Hgb 16.2 Hct 48.4 MCV 92 MCH 30.6 MCHC 33.5 RDW 12.7 Plt Count 289 MPV 10.0 Immature Gran % 0.3 Neutrophils % 89.3 Lymphocytes % 3.1 Monocytes % 6.8 Eosinophils % 0.2 Basophils % 0.3 Nucleated RBC % 0.0 Absolute Neutrophils 13.71 H Absolute Lymphocytes 0.48 L Absolute Monocytes 1.04 H Absolute Eosinophils 0.03 Absolute Basophils 0.05 VBG Lactate Sodium Potassium Chloride Carbon Dioxide Anion Gap BUN Creatinine Est GFR (CKD-EPI 2020) Glucose Calcium Magnesium Total Bilirubin AST ALT Alkaline Phosphatase Total Protein Albumin Lipase Urine Color Urine Clarity Urine pH Ur Specific [place] Urine Protein Urine Ketones Urine Blood Urine Nitrite Urine Bilirubin Urine Urobilinogen Ur Leukocyte Esterase Urine RBC Urine WBC Ur Epithelial Cells Urine Crystals Urine Bacteria Urine Casts Urine Mucus Ur Culture Indicated? Urine Glucose COVID-19 Source SARS-CoV-2 (PCR) PAWSS Have you Been Recently Intoxicated or Drunk Within the Last 30 days?: No Have you Ever Experienced Previous Episodes of Alcohol Withdrawal?: No Have you ever Experienced Withdrawal Seizures?: No Have you ever Experienced Delirium Tremens(DT)s?: No Have you ever undergone Alcohol Rehabilitation Treatment (i.e, inpt ot outpatient treatment programs)?: No Have you ever Experienced Blackouts?: No Have you ever Combined Alcohol with other Downers within the last 90 days?: No Have you ever Combined Alcohol with any other Substance of Abuse during the last 90 days?: No Positive Blood Alcohol level on Presentation? [PCS.BAL]: No Evidence of Increased Autonomic Activity (i.e. HR>120, tremor, sweating, agitation, nausea)?: No Result: 0 Time Spent with Patient Time Spent with Patient: <25 minutes Time was spent: preparing to see the patient(eg.review tests)
--- NOTE | 2022-07-25 08:26 | W.PM.PROGNOT ---
Date of Service Date of service: 07/25/22 Time of Service: 09:00 Assessment and Plan Assessment and plan (1) Small bowel obstruction: Status: Acute Assessment and plan: 42-year-old man with mechanical small bowel obstruction that is clinically resolving. He is hemodynamically stable. His abdominal exam is benign. Overall plan: Remove NG tube, start clear liquids. If he is tolerating clear liquids at lunchtime we will discharge him home. Subjective Subjective Interval history since last seen: Overnight the patient reports his abdominal pain is now gone. He is having bowel movements. Exam Narrative Exam Narrative: General: Nontoxic, comfortable and interactive Neuro: Alert and oriented x3 Psych: Appropriate mood and affect, good insight and understanding into his condition Abdomen: Soft, nondistended and nontender NG tube: Bilious output, greater than 1 L overnight. Objective Last Vital Signs Temp 99.1 F 07/25/22 05:11 Pulse 94 H 07/25/22 00:00 Resp 20 07/25/22 05:00 BP 127/77 07/25/22 05:11 Pulse Ox 93 07/24/22 23:00 Laboratory Results - last 24 hr 07/24/22 07/24/22 07/24/22 15:48 15:48 20:20 WBC 12.34 H RBC 5.52 Hgb 16.5 Hct 49.5 MCV 90 MCH 29.9 MCHC 33.3 RDW 12.4 Plt Count 329 MPV 9.7 Immature Gran % 0.2 Neutrophils % 76.6 Lymphocytes % 13.3 Monocytes % 7.5 Eosinophils % 1.8 Basophils % 0.6 Nucleated RBC % 0.0 Absolute Neutrophils 9.45 H Absolute Lymphocytes 1.64 Absolute Monocytes 0.93 H Absolute Eosinophils 0.22 Absolute Basophils 0.07 VBG Lactate Sodium 140 Potassium 3.8 Chloride 104 Carbon Dioxide 27.5 Anion Gap 8.5 BUN 13 Creatinine 1.0 Est GFR (CKD-EPI 2020) 97.58 Glucose 91 Calcium 9.1 Magnesium 2.1 Total Bilirubin 0.6 AST 32 ALT 47 Alkaline Phosphatase 121 H Total Protein 8.0 Albumin 3.9 Lipase 33 Urine Color Urine Clarity Urine pH Ur Specific [place] Urine Protein Urine Ketones Urine Blood Urine Nitrite Urine Bilirubin Urine Urobilinogen Ur Leukocyte Esterase Urine RBC Urine WBC Ur Epithelial Cells Urine Crystals Urine Bacteria Urine Casts Urine Mucus Ur Culture Indicated? Urine Glucose COVID-19 Source Nasal/Nares SARS-CoV-2 (PCR) Negative 07/25/22 07/25/22 07/25/22 00:01 05:15 05:15 WBC RBC Hgb Hct MCV MCH MCHC RDW Plt Count MPV Immature Gran % Neutrophils % Lymphocytes % Monocytes % Eosinophils % Basophils % Nucleated RBC % Absolute Neutrophils Absolute Lymphocytes Absolute Monocytes Absolute Eosinophils Absolute Basophils VBG Lactate 1.4 Sodium 139 Potassium 4.5 Chloride 103 Carbon Dioxide 29.8 Anion Gap 6.2 BUN 15 Creatinine 1.2 Est GFR (CKD-EPI 2020) 78.40 Glucose 142 H Calcium 8.7 Magnesium Total Bilirubin AST ALT Alkaline Phosphatase Total Protein Albumin Lipase Urine Color Yellow Urine Clarity Clear Urine pH 5.0 Ur Specific [place] 1.025 Urine Protein Trace H Urine Ketones Negative Urine Blood Negative Urine Nitrite Negative Urine Bilirubin Small H Urine Urobilinogen 0.2 Ur Leukocyte Esterase Negative Urine RBC 0-2 Urine WBC 0-2 Ur Epithelial Cells Rare Urine Crystals Negative Urine Bacteria Rare Urine Casts 3-5 Fine Granular Urine Mucus Negative Ur Culture Indicated? No Urine Glucose Negative COVID-19 Source SARS-CoV-2 (PCR) 07/25/22 05:15 WBC 15.35 H RBC 5.29 Hgb 16.2 Hct 48.4 MCV 92 MCH 30.6 MCHC 33.5 RDW 12.7 Plt Count 289 MPV 10.0 Immature Gran % 0.3 Neutrophils % 89.3 Lymphocytes % 3.1 Monocytes % 6.8 Eosinophils % 0.2 Basophils % 0.3 Nucleated RBC % 0.0 Absolute Neutrophils 13.71 H Absolute Lymphocytes 0.48 L Absolute Monocytes 1.04 H Absolute Eosinophils 0.03 Absolute Basophils 0.05 VBG Lactate Sodium Potassium Chloride Carbon Dioxide Anion Gap BUN Creatinine Est GFR (CKD-EPI 2020) Glucose Calcium Magnesium Total Bilirubin AST ALT Alkaline Phosphatase Total Protein Albumin Lipase Urine Color Urine Clarity Urine pH Ur Specific [place] Urine Protein Urine Ketones Urine Blood Urine Nitrite Urine Bilirubin Urine Urobilinogen Ur Leukocyte Esterase Urine RBC Urine WBC Ur Epithelial Cells Urine Crystals Urine Bacteria Urine Casts Urine Mucus Ur Culture Indicated? Urine Glucose COVID-19 Source SARS-CoV-2 (PCR) PAWSS Have you Been Recently Intoxicated or Drunk Within the Last 30 days?: No Have you Ever Experienced Previous Episodes of Alcohol Withdrawal?: No Have you ever Experienced Withdrawal Seizures?: No Have you ever Experienced Delirium Tremens(DT)s?: No Have you ever undergone Alcohol Rehabilitation Treatment (i.e, inpt ot outpatient treatment programs)?: No Have you ever Experienced Blackouts?: No Have you ever Combined Alcohol with other Downers within the last 90 days?: No Have you ever Combined Alcohol with any other Substance of Abuse during the last 90 days?: No Positive Blood Alcohol level on Presentation? [PCS.BAL]: No Evidence of Increased Autonomic Activity (i.e. HR>120, tremor, sweating, agitation, nausea)?: No Result: 0 Time Spent with Patient Time Spent with Patient: <25 minutes Time was spent: counseling the patient
--- NOTE | 2022-07-25 11:03 | INITIAL_ITS ---
- If Service Date Differs Date of service: 07/25/22 Time of Service: 11:04 Care Management Initial Assess REASON FOR HOSPITALIZATION:: SBO PAST MEDICAL HISTORY/PAST SURGICAL HISTORY:: All Active Problems (Updated 07/24/22 @ 18:28 by Manuela Mclaughlin NP). Small bowel obstruction (Acute). Hypogonadism in male (Acute). Hypothyroidism (Chronic). Abdominal pain (Acute). Bronchospasm (Acute). Right inguinal pain (Acute). Bilateral inguinal hernia (Acute). Low testosterone in male (Acute). Sleep apnea (Acute). CPAP (continuous positive airway pressure) dependence (Acute). Tubular adenoma (Acute ~07/2020). on EGD, repeat 6 months. Palpitations ( Acute). SVT (supraventricular tachycardia) (Chronic). Familial polyposis of colon (Acute). family hx-has routine proctoscopies with Dr. Baez, also sees GI. Seasonal allergies (Acute). Otitis media (Acute). URI (upper respiratory infection) (Acute). Family history of familial adenomatous polyposis (Acute). s/p colectomy- follows with GI. Tubular adenoma of colon (Acute 05/03/14). 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 Gastroesophageal reflux disease with esophagitis (Acute 05/25/15). refilled prilosec. BMI 40.0-44.9, adult (Acute 07/11/15). Abnormal results of thyroid function studies (Acute 05/25/15). continue levothyroxine- has been stable. Chest pain (Acute). pt. states it wasn't chest pain but acid reflux. Medical History . Familial polyposis. Sleep apnea. Surgical History . Anoscopy (03/2021). 2021. acute and chronic inflammation. with biopsy - flat, low grade dysplasia. H/O colectomy (~2002). Per Dr Fulton's office note dated 04/13/13 patient was 10 years s/p total abdominal colectomy proctectomy with ileoanal anastamosis for a FAP. History of esophagogastroduodenoscopy (EGD) (~01/2022). PROCTOSCOPY. 05/03/142019 PREVIOUS FUNCTIONAL STATUS/SOCIAL/FAMILY SUPPORTS:: Wilbert is and lives in [facility] with his Ros. He is employed, drives and is fully independent at baseline. ADVANCE DIRECTIVES:: None on file. Has patient been provided with info about the portal/API?: Yes Did the patient sign up for the portal?: Yes (Prior to admission) CODE STATUS:: Full Code INSURANCE COVERAGE / FINANCIAL ISSUES:: [employer]. Financial Assist 70 CURRENT HOME/COMMUNITY SERVICES/EQUIPMENT:: None PRIMARY CARE PHYSICIAN:: Dr. Torrez [facility] POTENTIAL DISCHARGE NEEDS:: Discharge plan and community follow up PATIENT/FAMILY EDUCATION NEEDS:: Review discharge instructions, limitations and plan to follow up with community providers. Discuss ask me three. TRANSPORTATION:: via private vehicle with family PLAN:: Wilbert will discharge home via private vehicle with family when medically ready per Surgeon. He will follow up with his community providers and discharge plan of care as prescribed. No new VNA services are indicated at this time.
--- NOTE | 2022-07-25 13:43 | PDOC.CMDIS ---
- If Service Date Differs Date of service: 07/25/22 Time of Service: 13:43 LACE Index Scoring Tool - Questions: Length of Stay (in days): 1 Acuity (Admit via E.D.?): Yes E.D. Visits: 1 - Answers: Total Score: 5 Risk of Readmission: Low Risk Care Management Discharge Reason for Hospitalization: SBO Discharge Plan: Wilbert is discharged home via private vehicle with family. He will follow up with community providers and discharge plan of care as prescribed. No new VNA services are ordered. Patient/Family Education Needs: Review discharge instructions, limitations and plan to follow up with community providers. Discuss ask me three.
--- NOTE | 2022-07-26 09:41 | W.PM.DS.N ---
Date of service: 07/25/22 Time of Service: 17:00 DS: Diagnosis Discharge Diagnosis (1) Small bowel obstruction: Status: Resolved Asessment and Plan: Nonoperative management with self-limited course. Discharge Plan Disposition Patient Disposition: Home Condition: Good Discharge Details Reason For Visit: Small Bowel Obstruction Admit Date/Time: 07/24/22 18:22 Admit Provider: Cuong Bravo Attending Provider: Cuong Bravo Primary Care Provider: Darian Torrez Hospital Course Hospital Course: 42-year-old man with an extensive surgical history and also history of recurrent small bowel obstructions presented with he had another obstruction. He was admitted for observation and managed with NG tube decompression. On the morning of hospital day 2 he was passing gas, having bowel function and his cramping abdominal pain was gone. The NG tube was removed. He was given a clear liquid diet which she tolerated and he was then discharged home. Home Meds and New Rx's Prescriptions: Continued benzonatate 200 mg capsule 200 mg PO TID Qty: 30 0RF levothyroxine 112 mcg capsule 112 mcg PO DAILY Qty: 90 3RF testosterone 20.25 mg/1.25 gram (1.62 %) gel in metered-dose pump 2 pump topical DAILY Qty: 75 5RF Rx Instructions: apply 1 pump amount over max area of EACH upper arm and shoulder Discharge Instructions Instructions: Bowel Obstruction (DC) Additional Instructions: Return to ED for recurrent symptoms Resume your regular activities, medications, diet and other aspects of your daily life. Ensure that you continue your annual surveillance procedures because of your history. Activity:: Activity as Tolerated Equipment/Supplies:: No Equipment Needed Diet:: Normal Diet Discharge Orders Discharge Orders: Discharge Order (Routine); Ordered 07/25/22 Ordered By: Cuong Bravo Discharge Data Discharge Date/Time-TO BE ENTERED AT DEPARTURE: 07/25/22 13:48 DS: Summary Time Spent with Patient providing and/or coordinating discharge services: Less than 30 minutes Status at Discharge Functional status at discharge: independent ambulation Overall status at discharge: patient is back to baseline Mental Status: mental status grossly normal Speech and Movement: speech and movement normal Mood: congruent mood Affect: normal affect Exam Const General: cooperative, healthy appearing and comfortable Orientation: alert and oriented x3 Resp Effort & Inspection: normal respiratory effort, no audible wheezes and no cough GI Inspection: normal to inspection Palpation: soft, no guarding and nontender Auscultation: normal bowel sounds Psych Mental Status: mental status grossly normal Speech and Movement: speech and movement normal Mood: congruent mood Affect: normal affect DS: Data Vitals/I&O Vitals and I&O: Vital Signs Temperature 35.6 C L 07/25/22 09:12 Temperature Source Temporal Artery Scan 07/25/22 09:12 Pulse 92 H 07/25/22 13:11 Pulse Rhythm Regular 07/25/22 08:57 Pulse 92 H 07/25/22 08:37 Respiratory Rate 16 07/25/22 10:00 Respiratory Effort Normal, Non-Labored 07/25/22 08:57 Respiratory Depth Normal 07/25/22 08:57 Respiratory Pattern Normal 07/25/22 08:57 Blood Pressure 123/68 07/25/22 09:13 Blood Pressure Mean 81 07/25/22 08:37 Blood Pressure Position Supine 07/24/22 20:45 Pulse Oximetry 93 07/24/22 23:00 Oxygen Delivery Method Room Air 07/25/22 09:12 Oxygen Flow Rate 0 07/25/22 09:12 Pain Level 0 07/25/22 13:42 Intake & Output 07/25/22 07/26/22 07/26/22 18:59 06:59 18:59 Intake Total 1850.0 / 1850.0 Output Total 1250 / 1250 Balance 600.0 / 600.0 Intake: IV 1010.0 / 1010.0 Oral 840 / 840 Output: Gastric Drainage 300 / 300 Right Nare 300 / 300 Stool 950 / 950 Other: Urine Appearance Clear Comment not sure about stool mixed w urine Stool Size Large Stool Characteristics Liquid PFSH All Active Problems Hypogonadism in male (Acute) Hypothyroidism (Chronic) Abdominal pain (Acute) Bronchospasm (Acute) Right inguinal pain (Acute) Bilateral inguinal hernia (Acute) Low testosterone in male (Acute) Sleep apnea (Acute) CPAP (continuous positive airway pressure) dependence (Acute) Tubular adenoma (Acute ~07/2020) on EGD, repeat 6 months Palpitations (Acute) SVT (supraventricular tachycardia) (Chronic) Familial polyposis of colon (Acute) family hx-has routine proctoscopies with Dr. 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 states it wasn't chest pain but acid reflux Medical History Familial polyposis Sleep apnea Surgical History Anoscopy (03/2021) 2021. acute and chronic inflammation. with biopsy - flat, low grade dysplasia H/O colectomy (~2002) Per Dr Fulton's office note dated 04/13/13 patient was 10 years s/p total abdominal colectomy proctectomy with ileoanal anastamosis for a FAP. History of esophagogastroduodenoscopy (EGD) (~01/2022) PROCTOSCOPY 05/03/14, 2019 Family History Mother , age 60 Colon cancer Father Hyperlipidemia Sister Cancer ?thyroid cancer Maternal Grandfather , age 80 No problems noted. Paternal Grandfather , age 50 No problems noted. Maternal Grandmother No problems noted. Paternal Grandmother , age 80 No problems noted. Social History Smoking/Tobacco Use Status: Never Second Hand Exposure: No Smoking risk assessment performed?: Yes Alcohol Intake: current Alcohol Intake frequency: a few times a month Alcohol type: beer Drug use: Never Substance use type: does not use Caregiver/Support person: No Household members: spouse, family and children Housing: house Communication Needs: None Do you need help understanding health information?: Never Pets and animals: Yes Pets and animals: cat(s) and dog(s) Sexually active: Yes Do you think of yourself as: straight/heterosexual Current gender identity: male What is your relationship status?: How often do you talk on the phone with friends or family?: three or more times per week How often do you get together with friends or relatives?: once per week How often do you attend restorationist or muslim services?: decline to answer Do you belong to any clubs or organized social groups?: no Panel score (0-1 are the most socially isolated patients): 2 What type of physical activity do you participate in: none Duration: < 15 minutes/day Frequency: 1-2 times per week Alivia/Mosque: No preference Special alivia needs: No Seatbelt use: always Helmet use: Yes Helmet use: always Drive intox or ride w/intox substitute bus driver: No Do you feel safe at home: Yes Do you feel safe in your relationship?: Yes Victim of physical abuse: No Victim of emotional abuse: No Would you like helpful sources: No Time Spent with Patient Time Spent with Patient: <45 minutes Time was spent: preparing to see the patient(eg.review tests) and care coordination
== END 2022-07-25 13:48 | disposition home or self-care (01) | DRG 389 ==
LOC: ER 19:24 → ICU 20:34
PROVIDERS: Admitting Provider Student in an Organized Health Care Education/Training Program; Emergency Provider Registered Nurse Emergency; PCP Family Medicine; Visit Provider Student in an Organized Health Care Education/Training Program
DX: K56.609 Unspecified intestinal obstruction, unspecified as to partial versus complete obstruction (principal); I47.1 Supraventricular tachycardia; Z90.49 Acquired absence of other specified parts of digestive tract; K21.9 Gastro-esophageal reflux disease without esophagitis; E03.9 Hypothyroidism, unspecified; G47.30 Sleep apnea, unspecified; D12.6 Benign neoplasm of colon, unspecified; E06.3 Autoimmune thyroiditis; K21.00 Gastro-esophageal reflux disease with esophagitis, without bleeding
CPT/HCPCS: 36415; 80048; 80053; 83690; 87635; 96374; 96375; 96376; 99285; J1650; 74022; 74177; 81003; 81015; 83605; 83735; 85025; J0131; J2270; J2405; J3360; J3490

== ENCOUNTER 2023-05-20 04:19 | Outpatient (CLI) | payer OTHER, SELFPAY ==
[2023-05-20 12:05] LABS: Abs Immature Grans 0.03 10^3/uL (0.0-0.06); Absolute Basophil Count 0.06 10^3/uL (0.0-0.2); Absolute Eosinophil Count 0.29 10^3/uL (0.0-0.7); Absolute Lymphocyte Count 1.74 10^3/uL (1.2-3.4); Absolute Monocyte Count 0.55 10^3/uL (0.1-0.8); Absolute Neutrophil Count 6.78 10^3/uL (1.2-6.7); Basophils % 0.6; Eosinophils % 3.1; HCT 45.8 % (40.0-50.0); HGB 15.3 g/dL (13.5-17.5); Immature Grans % 0.3; Lymphocytes % 18.4; MCHC 33.4 % (32.0-36.0); MCV 90 fL (80-95); Monocytes % 5.8; Neutrophils % 71.8; Platelet Count 306 10^3/uL (130-400); RDW-SD 43.4 fL; WBC 9.45 10^3/uL (4.4-10.8)
[2023-05-20 12:17] LABS: Hemoglobin A1C 5.4 % (<5.7)
[2023-05-20 12:30] LABS: TSH (W/Ref FT4) 3.73 uIU/mL (0.36-3.74)
[2023-05-28 16:42] LABS: Testosterone, Free 6.33 ng/dL (4.46-17.1); Testosterone, Total 280 ng/dL (240-950)
== END 2023-05-20 04:20 | disposition home or self-care (01) ==
LOC: LBO 04:20
PROVIDERS: PCP Family Medicine; Visit Provider Family Medicine
DX: E03.9 Hypothyroidism, unspecified; E11.51 Type 2 diabetes mellitus with diabetic peripheral angiopathy without gangrene; Z00.00 Encounter for general adult medical examination without abnormal findings
CPT/HCPCS: 36415; 84402; 84403; 83036; 84443; 85025

== ENCOUNTER 2023-06-06 08:26 | Day surgery (SDC) | payer OTHER, SELFPAY ==
--- NOTE | 2023-06-05 13:44 | W.PM.DSUDISC ---
Date of service: 06/06/23 Time of Service: 11:05 Discharge Plan Disposition Patient Disposition: Home Condition: Good Discharge Details Reason For Visit: Screening EGD and proctoscopy Attending Provider: Feng Ma Primary Care Provider: Darian Torrez Home Meds and New Rx's Prescriptions: Continued tadalafil 20 mg tablet 20 mg PO DAILY PRN (Reason: sexual activity) Qty: 90 3RF Rx Instructions: administer approximately 30min before sexual activity; do not use more than 1 dose per 24hrs testosterone 20.25 mg/1.25 gram (1.62 %) gel in metered-dose pump 2 pump topical DAILY Qty: 75 5RF Rx Instructions: apply 1 pump amount over max area of EACH upper arm and shoulder levothyroxine 112 mcg capsule 112 mcg PO DAILY Qty: 90 3RF Discharge Instructions Additional Instructions: Wilbert, first, I just noticed that my office dictation captured your name is Christina, I apologize for that. Your procedure went very smoothly today. Hopefully you are comfortable. Your upper endoscopy is really quite normal. I was able to advance down to the third portion of your duodenum. I did not see any signs of polyps anywhere along the length of your duodenum or stomach. The proctoscopy also went smoothly. You have a patch of chronic appearing inflammation, that seems consistent with your previous endoscopies. Majority of the mucosa looked a little bit irritated, but I did not see any evidence of discrete polyps, or any other worrisome pathology. We can plan for another EGD and proctoscopy in 1 year. 1. If tolerated, consume a soft, low fiber diet for 1-2 days. [address] Do not drive, drink alcohol, operate machinery, make critical decisions, or do activities that require coordination or balance for 24 hours. 3. Because air was put into your colon during the procedure, expelling air from your rectum (passing gas or farting) is normal. 4. You may not have a bowel movement for 1-3 days because of the colonoscopy prep. This is normal. 5. You may experience a sore throat for 24 to 48 hours. You may use throat lozenges or gargle with warm salt water to relieve the discomfort. 6. Because air was put into your stomach during the procedure, you may experience some belching. 7. Go directly to the emergency room if you notice any of the following: Develop chills (warm to touch), or if you have a thermometer and your temperature is above 101 Difficulty breathing or difficultly swallowing Persistent vomiting Severe abdominal pain, other than gas cramps Severe chest pain Black, tarry stools Any bleeding ? exceeding one tablespoon 8. Call your physician if the site where your intravenous was started becomes red, swollen, painful, and warm to touch. 9. Your physician has reviewed your pre-procedure medications. Please continue to take those medications as previously ordered. You will be given specific information/education regarding any changes to your medications before leaving. Activity:: Activity as Tolerated Diet:: As Tolerated Discharge Orders Discharge Orders: Discharge Order (Routine); Ordered 06/05/23 Ordered By: Feng Ma DS: Diagnosis Discharge Diagnosis (1) Familial polyposis of colon: Status: Acute Asessment and Plan: Negative surveillance EGD; chronic pouchitis on proctoscopy
--- NOTE | 2023-06-05 13:46 | W.PM.ENDDOP ---
Date of service: 06/06/23 Time of Service: 13:08 Endoscopy Report DATE OF PROCEDURE: 06/06/23 PRE-OP DIAGNOSIS: Familial adenomatous polyposis POST-OP DIAGNOSIS: same PROCEDURE: EGD and proctoscopy SURGEON: Feng Ma ANESTHESIA TYPE: General:No Airway ESTIMATED BLOOD LOSS: 0 PATHOLOGY: none sent COMPLICATIONS: None DISPOSITION: same day INDICATIONS: Wilbert is a 42-year-old male with history of renal adenomatous polyposis. He needs his next surveillance EGD and proctoscopy PREP: Other PROCEDURE START TIME: 10:33 PROCEDURE END TIME: 10:45 FINDINGS: Normal GE junction around 32 cm from the incisors. No evidence of gastroduodenal polyps. Chronic pouchitis, without any polyps PROCEDURE DESCRIPTION: After the initiation of anesthesia, and with the assistance of a bite block, I advanced a standard gastroscope through the mouth past the hypopharynx and into the esophagus.? Under the direct vision of the scope, I advanced down the esophagus into the stomach.? The GE junction was normal-appearing at 32 cm from the incisors. The Z-line was regular. Once I entered the stomach, I performed a brief inspection, followed by retroflexion towards the gastric cardia.? This appeared normal.? I did not see signs of any hiatal hernia. After that, I gently advanced the scope around the incisura angularis and examined the pylorus.? This also appeared normal.? Next, I advanced the scope through the pylorus into the duodenum.? The mucosa was pink and healthy appearing.? There were no abnormalities.? I was able to visualize bile draining into the duodenum through the ampulla Vater, and advanced down into the third portion of the duodenum. ?Next, I began retracting the endoscope.? The duodenum was totally normal. I did not see any signs of polyps. I brought the camera back into the stomach, and insufflated until the gastric rugae were obliterated. I examined it once again. I did not find any polyps. Next, I emptied the stomach, and brought the camera out along the length of the esophagus which was examined 1 last time. Next, we rolled a Wilbert into the left lateral decubitus position. I I performed an external anorectal exam.? Perineum and skin were normal, as was the anal verge.? There was no evidence of external hemorrhoids.? Next, I performed a digital rectal exam.? I did not appreciate any abnormal findings.? Next, I advanced a colonoscope into the rectal vault.? I performed retroflexion.? I did not see any signs of pathologic hemorrhoids. Mucosa of the rectal vault at the anastomosis was inflamed. There were no discrete polyps. There was an area of fibrinous exudate that I could irrigate clear. This appeared consistent with chronic pouchitis. The camera was advanced up across the anastomosis into the small bowel proper. The mucosa was normal-appearing. I then slowly withdrew the camera, and I did not see any signs of any polyps. The camera was completely withdrawn, the patient was allowed awaken from anesthesia and transferred back to the day surgery unit.
[2023-06-06 08:49] VITALS: BP 124/87; PULSE 71; RESP 16; TEMP 36.7; O2SAT 96
[2023-06-06] MEDS: Lactated Ringers 1,000 ML 80 ML IV (08:53)
--- NOTE | 2023-06-06 09:01 | ANES.PREOP_ITS ---
General Info Date of Service Date Performed: 06/06/23 Height: 5 ft 11 in Weight: 152.1 kg Body Mass Index (BMI): 46.7 Surgical Procedure: Operation Date: 06/06/23 09:50 Proposed Procedure Side Surgeon p Colonoscopy/Gastroscopy Feng Ma MD Meds Allergies and Home Medications Allergies Allergy/AdvReac Type Severity Reaction Status Date / Time doxycycline AdvReac Intermediate heartburn Verified 06/06/23 08:35 Home Medication Medication Instructions Recorded testosterone 2 pump topical DAILY #75 grams 04/26/22 levothyroxine 112 mcg capsule 112 mcg PO DAILY #90 caps 08/13/22 tadalafil 20 mg tablet 20 mg PO DAILY PRN sexual activity 04/17/23 #90 tabs Current Visit Medications: Current Medications Generic Name Dose Route Start Last Admin Trade Name Freq PRN Reason Stop Dose Admin Hyoscyamine Sulfate 0.125 mg 06/05/23 13:47 Hyoscyamine 0.125 Mg Sl/Oral/Chew SL 07/05/23 13:46 DIRECTED PRN Ringer's Solution 1,000 mls @ 80 mls/hr 06/06/23 06:00 06/06/23 08:53 IV 07/05/23 23:59 80 mls/hr INFUSION ARIANA Administration IV Miscellaneous Supplies 1 each 06/06/23 06:00 Iv Access IV 07/05/23 23:59 DIRECTED ARIANA Ondansetron HCl 4 mg 06/05/23 13:47 Ondansetron 4 Mg/2 Ml Vial IVP 07/05/23 13:46 Q4H PRN PRN Nausea / Vomiting Sodium Chloride 0 ml 06/06/23 06:00 Normal Saline Flush 10 Ml Syr IV 07/05/23 23:59 PRN PRN Sodium Chloride 0 ml 06/06/23 06:00 Normal Saline 10 Ml Vial IJ 07/05/23 23:59 DIRECTED PRN Sterile Water 0 ml 06/06/23 06:00 Water,Injection,Sterile 10 Ml Vial IJ 07/05/23 23:59 DIRECTED PRN PFSH Active Problems Active Problems: Problem Status Onset Code Hypogonadism in male E29.1 Hypothyroidism E03.9 Abdominal pain R10.9 Bronchospasm J98.01 Right inguinal pain R10.31 Bilateral inguinal hernia K40.20 Low testosterone in male R79.89 Sleep apnea G47.30 CPAP (continuous positive airway pressure) dependence Z99.89 Tubular adenoma ~07/2020 D36.9 Palpitations R00.2 SVT (supraventricular tachycardia) I47.1 Familial polyposis of colon D12.6 Seasonal allergies J30.2 Otitis media H66.90 URI (upper respiratory infection) J06.9 Family history of familial adenomatous polyposis Z83.71 Tubular adenoma of colon 05/03/14 D12.6 Sharla's thyroiditis 06/06/15 E06.3 Gastroesophageal reflux disease with esophagitis 05/25/15 K21.0 BMI 40.0-44.9, adult 07/11/15 Z68.41 Abnormal results of thyroid function studies 05/25/15 Chest pain R07.9 Medical History Medical History Sleep apnea Familial polyposis Surgical History Surgical History History of esophagogastroduodenoscopy (EGD) (~01/2022) H/O colectomy (~2002) Per Dr Fulton's office note dated 04/13/13 patient was 10 years s/p total abdominal colectomy proctectomy with ileoanal anastamosis for a FAP. PROCTOSCOPY 05/03/142019 Anoscopy (03/2021) 2021. acute and chronic inflammation. with biopsy - flat, low grade dysplasia Tobacco Smoking/Tobacco Use Status: Never Passive smoking exposure: No Second hand exposure: No Alcohol Alcohol Intake: current Alcohol intake frequency: a few times a month Alcohol type: beer Substance Use Substance use: Never Substance use type: does not use Vital Signs and Lab Results Vital Signs Most Recent Vital Signs in EMR: Most Recent Vital Signs Temp Pulse Resp BP Pulse Ox 36.7 C 71 16 124/87 96 06/06/23 08:49 06/06/23 08:49 06/06/23 08:49 06/06/23 08:49 06/06/23 08:49 Lab Results Blood Type / Crossmatch: No Data to Display Complete Blood Count: White Blood Count 9.45 10^3/uL (4.4-10.8) 05/20/23 11:51 Red Blood Count 5.10 10^6/uL (4.36-5.78) 05/20/23 11:51 Hemoglobin 15.3 g/dL (13.5-17.5) 05/20/23 11:51 Hematocrit 45.8 % (40.0-50.0) 05/20/23 11:51 Platelet Count 306 10^3/uL (130-400) 05/20/23 11:51 Complete Metabolic Panel: Hemoglobin A1c 5.4 % (<5.7) 05/20/23 11:51 Liver Function Panel: No Data to Display Coagulation Panel: No Data to Display Cardiac Panel: No Data to Display Arterial Blood Gas: No Data to Display Venous Blood Gas: No Data to Display Pancreas Panel: No Data to Display Thyroid Panel: Thyroid Stimulating Hormone (TSH) 3.73 uIU/mL (0.36-3.74) 05/20 11:51 Infectious Disease: No Data to Display Blood Cultures: No Data to Display Toxicology Panel: No Data to Display Imaging and Studies Imaging and Studies Study information below may be from another EMR and interpreted by another provider. Please see original notes in EMR for more complete details. Stress Test Summary: 01/2015: LVEF 60-65%, no hemodynamically sig valve lesion. Echocardiogram Summary: Patient Name: SAPPHIRE RICHARDSON Unit #: [id number] Loc: Ordering Provider: Song Garcia M.D. Status: [facility] Primary Care Provider: Darian Torrez Date of Exam: 01/27/15 Sex: M : 1980 Age: 34 Exam(s) [id number] US:Echocardiogram Heart *[facility]* *[facility]* [address] [place] [address] Date of study: 01/27/2015 Transthoracic Echocardiography M-mode, complete 2D, complete spectral Doppler, and color Doppler *STUDY CONCLUSIONS* Impressions: Normal study. Summary: 1. Left ventricle: The cavity size was normal. Wall thickness was normal. Systolic function was normal. The estimated ejection fraction was 60-65%. Wall motion was normal; there were no regional wall motion abnormalities. 2. Aortic valve: Trileaflet; normal thickness leaflets. Transvalvular velocity was within the normal range. There was no stenosis. 3. Mitral valve: Structurally normal valve. 4. Left atrium: The atrium was normal in size. 5. Right ventricle: The cavity size was normal. Wall thickness was normal. Systolic function was normal. 6. Pulmonary arteries: Pulmonary systolic pressure was within the normal range. *PATIENT PRESENTATION* Height: 180.3cm (71in ) S/D Pressure: 132 / 72 Weight: 130.6kg (287.4lb ) BSA: 2.61m^2 Test start time: 03:00 PM. Test stop time: 04:14 PM. ORDERING Efe Molina MD REFERRING Song Garcia [employer] Christi Brooks PERFORMING [facility] *PROCEDURE DATA* Procedure information: [facility] INFO: [id number] This study was interpreted by [facility]. Pertinent images and digital data are archived for permanent storage and are available for subsequent review. No prior study was available for comparison. Study status: Routine. Transthoracic echocardiography. M-mode, complete 2D, complete spectral Doppler, and color Doppler. A Transthoracic Echocardiogram was performed. Scanning was performed from the parasternal, apical, subcostal, and suprasternal notch acoustic windows. Study completion: The patient tolerated the procedure well. History: PMH: Palpitations; Abnormal EKG. *CARDIAC ANATOMY* Left ventricle: The cavity size was normal. Wall thickness was normal. Systolic function was normal. The estimated ejection fraction was 60-65%. Wall motion was normal; there were no regional wall motion abnormalities. Aortic valve: Trileaflet; normal thickness leaflets. Mobility was not restricted. Doppler: Transvalvular velocity was within the normal range. There was no stenosis. No regurgitation. VTI ratio of LVOT to aortic valve: 0.77. Indexed valve area: 1.2cm^2/m^2 (VTI). Peak velocity ratio of LVOT to aortic valve: 0.73. Indexed valve area: 1.1cm^2/m^2 (Vmax). Mean gradient: 2.8mm Hg (S). Peak gradient: 6.2mm Hg (S). Aorta: Aortic root: The aortic root was normal in size. Mitral valve: Structurally normal valve. Mobility was not restricted. Doppler: Transvalvular velocity was within the normal range. There was no evidence for stenosis. No significant regurgitation. Valve area by pressure half-time: 3.3cm^2. Indexed valve area by pressure half-time: 1.3cm^2/m^2. Peak gradient: 2.6mm Hg (D). Left atrium: Well visualized. The atrium was normal in size. Right ventricle: The cavity size was normal. Wall thickness was normal. Systolic function was normal. Pulmonic valve: Doppler: Transvalvular velocity was within the normal range. There was no evidence for stenosis. No regurgitation. Tricuspid valve: Structurally normal valve. Doppler: Transvalvular velocity was within the normal range. There was no evidence for stenosis. Trivial regurgitation. Pulmonary artery: Pulmonary systolic pressure was within the normal range. Right atrium: The atrium was normal in size. Pericardium: There was no pericardial effusion. Systemic veins: Inferior vena cava: Not visualized. Baseline ECG: Normal sinus rhythm. *MEASUREMENT TABLES* 2D measurements Normal Left ventricle LV internal dimension, ED, chordal level, PLAX 49.5 mm 43- 52 LV internal dimension, ES, chordal level, PLAX 29.2 mm 23- 38 Fractional shortening, chordal level, PLAX 41 % >29 LV posterior wall thickness, ED 12 mm ------ IVS/LVPW ratio, ED 1 <1.3 Ejection fraction 71.6 % ------ Stroke volume 82.7 ml ------ Stroke index 31.6 ml/m^2 ----- Volume, ED, MOD, 1-plane 98.5 ml ------ Ejection fraction, MOD, 1-plane 62 % ------ Volume index, ED, MOD, 1-plane 38 ml/m^2 ----- Ventricular septum Septal thickness, ED 12 mm ------ Aorta Root diameter, ED 30.9 mm ------ Left atrium Area ES, A4C 19.8 cm^2 8.8- Volume index, S 25.7 ml/m^2 ----- Right atrium Area, ES 21.4 cm^2 ---- Doppler measurements Normal Main pulmonary artery Pressure, S 24 mm Hg <=30 Left ventricle IVRT *117 ms 60-100 Ea, medial annulus, tissue Doppler 16 cm/s ------ E/Ea, medial annulus, tissue Doppler 5 ------ LVOT Peak velocity, S 90 cm/s ------ VTI, S 17.3 cm ------ Peak gradient, S 3.2 mm Hg ------ Mean gradient, S 1.8 mm Hg ------ Aortic valve Peak velocity, S 124 cm/s ------ Mean velocity, S 77 cm/s ------ VTI, S 22.5 cm ------ Mean gradient, S 2.8 mm Hg ------ Peak gradient, S 6.2 mm Hg ------ VTI ratio, LVOT/AV 0.77 ------ Valve area index, VTI 1.2 cm^2/m^2 ------- Anesthesia Assessment and Plan Anesthesia History Personal History: No History of Anesthesia Complications Family History: No Family History of Anesthesia Complications Exercise Tolerance Exercise Tolerance: Metabolic Equivalents>4 Pertinent Negatives Pertinent Negatives: No Symptoms of GERD, No Major Cardiovascular Symptoms or Complaints, No Major Pulmonary Symptoms or Complaints and No History of CVA/TIA Cardiac & Pulmonary Exam Cardiac Exam: Normal S1/S2 Heart Sounds Pulmonary Exam: Clear Bilateral Breath Sounds Implantable Cardiac Device Does patient have a Pacemaker or an ICD?: No Airway Exam Known Difficult Airway: No Mallampati Class: 3 Mouth Opening: Narrow (< 3cm) Thyromental Distance: Greater than 3 cm Neck Range of Motion: Full ROM Neck Circumference: Thick Teeth Condition: Normal Dentition ASA Classification ASA Score: ASA 3 Emergency Case?: No NPO Status NPO Status: NPO Clears >2 hours, Solids >8 hours Anesthesia Plan Resuscitation Status: Full Code Anesthesia Technique: General Anesthesia Airway Planned: Natural Airway Monitors Used: Standard Monitors
[2023-06-06 09:26] VITALS: BMI 46.7
[2023-06-06 10:52] VITALS: BP 95/81; PULSE 83; RESP 18; TEMP 36.3; O2SAT 95
[2023-06-06 11:26] VITALS: BP 112/84; PULSE 65; RESP 18; TEMP 36.2; O2SAT 100
--- NOTE | 2023-06-06 13:57 | W.ANESPOSTOP ---
Postoperative Evaluation Date, Time and Location Date Performed: 06/06/23 Time Performed: 11:27 Patient Location: Day Surgery Unit Vital Signs Most Recent Imported Vital Signs: Most Recent Vital Signs Temp Pulse Resp BP Pulse Ox 36.2 C L 65 18 112/84 100 06/06/23 11:26 06/06/23 11:26 06/06/23 11:26 06/06/23 11:06/06/23 11:26 Pain Score Most Recent Pain Score: Most Recent Pain Score Pain Level 0 06/06/23 11:26 Assessment Mental Status: Awake (Alert & Oriented to Patient Baseline) Airway and Respiratory Function: Patent airway with normal (patient baseline) respiratory exam Cardiovascular Function: Hemodynamically Stable Hydration Status: Adequately Hydrated Nausea & Vomiting: No Nausea or Vomiting Pain: Pt. Denies Any Pain Peripheral Nerve Block: Patient did not receive a nerve block
== END 2023-06-06 12:05 | disposition home or self-care (01) ==
LOC: SUR 08:27
PROVIDERS: PCP Family Medicine; Visit Provider Surgery
PROC: (CPT 45330; principal; 2023-06-06 09:45)
DX: Z12.11 Encounter for screening for malignant neoplasm of colon (principal); Z80.0 Family history of malignant neoplasm of digestive organs; D13.91 Familial adenomatous polyposis; Z90.49 Acquired absence of other specified parts of digestive tract; Z98.0 Intestinal bypass and anastomosis status; K91.850 Pouchitis
CPT/HCPCS: 45330; 43235; J2704

== ENCOUNTER 2023-09-09 21:07 | Emergency (ER) | payer OTHER, SELFPAY ==
[2023-09-09] VITALS (21 sets, daily range): BP systolic 109–149; BP diastolic 66–82; PULSE 79–118; RESP 11–26; TEMP 36.6; O2SAT 93–99
--- NOTE | 2023-09-09 21:00 | RT.EKG_ITS ---
APPROVED REPORT Exam: Resting ECG Reason for Exam: high hr Patient Location: E HR:101 bpm ECG Measurements Heart Rate 101 AXIS OK 182 P 69 QRSd 80 QRS 163 QT 313 T 30 QTc 407 Conclusion Sinus tachycardia 101 right axis no stemi
--- NOTE | 2023-09-09 21:16 | ED.GENADUL_ITS ---
Discharge Plan Discharge Details Chief Complaint: Palpitatns Primary Care Provider: Darian Torrez ED Provider: Won Abdalla Home Meds and New Rx's Prescriptions: No Action testosterone cypionate [Depo-Testosterone] 200 mg/mL oil 100 mg IM QWEEK Qty: 10 5RF (DME) syringe with needle, safety [Easy Touch SheathLock Syrg-Ndl] 3 mL 22 gauge x 1 syringe See Rx Instructions .ROUTE .MEDSUPPLY Qty: 24 1RF Rx Instructions: inject every 1 week levothyroxine 112 mcg capsule 112 mcg PO DAILY Qty: 90 3RF HPI General Date/Time Provider Initiated Documentation: 09/09/23 21:16 . HPI Narrative: 43 year-old male presents to ED today by POV/ambulating with a chief complaint of tachycardia, palpitations with onset around 1615 today, 5 hours ago. Quality described as not painful, just some palpitations with rate as high as 160 on apple watch, has had Giselle monitor in the past without diagnosis- has been able to vagal himself down out of these episodes in the past but not today. States he had a negative stress test, no radiation to recent illness, URI, nausea/vomiting, syncope, dizziness, states some mild sweating but this was while he was doing work earlier today. Severity is described as mild. Palliating factors include nothing specific attempted. Provoking factors include nothing specific. Events leading up to the incident/Associated Symptoms: Patient is 105 on arrival to ED. Patient not anticoagulated. Related Data Home Medications Medication Instructions Recorded Confirmed levothyroxine 112 mcg capsule 112 mcg PO DAILY #90 caps 08/13/22 09/09/23 syringe with needle, safety 3 mL #24 ea 08/07/23 08/07/23 22 gauge x 1 (Easy Touch SheathLock Syringe with Needle) testosterone cypionate 200 mg/mL 100 mg (0.5 mL) IM QWEEK #10 mL 08/07/2308/12 intramuscular oil (Depo-Testosterone) Previous Rx's Medication Instructions Recorded levothyroxine 112 mcg capsule 112 mcg PO DAILY #90 caps 08/13/22 syringe with needle, safety 3 mL #24 ea 08/07/23 22 gauge x 1 (Easy Touch SheathLock Syringe with Needle) testosterone cypionate 200 mg/mL 100 mg (0.5 mL) IM QWEEK #10 mL 08/07/23 intramuscular oil (Depo-Testosterone) Allergies Allergy/AdvReac Type Severity Reaction Status Date / Time doxycycline AdvReac Intermediate heartburn Verified 09/09/23 21:24 General Stated Complaint: Palpitatns JANELL: 3 Review of Systems All systems reviewed & are unremarkable except as noted in HPI and below Exam Narrative Exam Narrative: GENERAL APPEARANCE: Well-nourished, non-toxic, awake and alert, atraumatic, no acute distress. SKIN: Warm, pink, dry, intact, without rashes/lesions/ulcerations. HEAD: Normocephalic, atraumatic, normal hair distribution for gender/age. EYES: Pupils PERRLA, EOMs intact without nystagmus, normal conjunctiva, no exudates on lids/lashes. ENT: Nares patent, no circumoral cyanosis, no facial swelling NECK: Supple, trachea midline, painless cervical ROM, no carotid bruit. LUNGS/CHEST: Lungs CTA bilaterally- no rhonchi/rales/wheezes diffusely, non- labored respirations, normal A/P diameter, symmetrical expansion, no chest wall deformity HEART (CV/PV): Regular rate and rhythm without murmur- tachycardic, no peripheral edema, no JVD. ABDOMEN: Soft, non-distended, no guarding, no tenderness. MSK: Normal ROM, no swelling/deformity to bilateral UEs or LEs, moving all extremities without weakness, no cyanosis, spine midline without tenderness, normal curvature. NEURO: Mental Status AAOx4 - alert to person, place, time, events No facial droop, no forehead involvement. Motor: No focal weakness - strength 5/5 in bilateral UEs and LEs, proximal and distal, symmetric. Sensory: sensation intact to light touch globally. Gait normal: patient ambulated without ataxia into ED room. PSYCH: euthymic, cooperative, pleasant, appropriate speech Course Vital Signs Vital signs: Vital Signs Temperature 36.6 C 09/09/23 21:12 Pulse 118 H 09/09/23 21:12 Respiratory Rate 18 09/09/23 21:12 Blood Pressure 149/82 H 09/09/23 21:12 Pulse Oximetry 97 09/09/23 21:12 Temperature 36.6 C 09/09/23 21:12 Temperature Source Temporal Artery Scan 09/09/23 21:12 Pulse 118 H 09/09/23 21:12 Respiratory Rate 18 09/09/23 21:12 Blood Pressure 149/82 H 09/09/23 21:12 Pulse Oximetry 97 09/09/23 21:12 Oxygen Delivery Method Room Air 09/09/23 21:12 Oxygen Flow Rate 0 09/09/23 21:12 Medical Decision Making This dictation utilizes [id number] dictation software and may contain unedited grammatical errors. 43 y/o M presents to ED today with a chief complaint of tachycardia, as high as 160 on apple watch since 1614 today. Patient has had episodes of tachycardia in the past seen in this ED- has been able to vagal himself out. States he had a Giselle monitor in the past and negative stress test. Patient denies any chest pain/shortness of breath during this attack, and he is 105-110 on arrival at the ED. Patients' medical history: Obesity, hypothyroidism, sleep apnea, SVT, Sharla's thyroiditis, GERD. Family and social history: noncontributory. Pertinent exam findings / vital signs include mildly tachycardic, benign abdomen, nontoxic vitals, afebrile, neuro intact. Differential / pathologies of concern include sinus tachycardia, palpitations, ACS less likely, PE, dehydration. Diagnostic studies of: -CBC, CMP, troponin, lipase, BNP, magnesium, D-dimer, TSH, EKG. -CBC shows mild leukocytosis at 14, nonspecific -Lactate 1.5 -D-dimer neg, no PE, PERC neg -Trop I initial 79 - repeat q3hr, likely demand ischemia, no acute chest pain throughout -CMP benign -TSH elevated, known hypothyroid -BNP wnl -Magnesium WNL -Lipase WNL -EKG shows sinus tachycardia at 101 bpm with P waves followed by narrow complex QRS with normal axis deviation, motion artifact, no acute ST changes, normal QT QTc, inverted T wave in aVR question lead placement -CXR pending at time of sign-out Interventions of: -1L NS IVF, 324mg ASA ED Course/Assessment/Plan: 43-year-old male presents with palpitations, tachycardia to 116 on his Apple Watch he has resolved by the time of ED evaluation at 10 5-1 10, quickly decreasing to 90 and stable in the ED, experienced no chest pain throughout the entirety of the episode. This has happened in the past and he does have a diagnosis of SVT that does respond to Valsalva in the past his heart score is low risk and I think it is reasonable he follow-up with possible Holter monitor as an outpatient, the patient is well-informed of his condition and agrees with this plan. I stressed strict return criteria for any acute chest pain, shortness of breath, sweating, nausea or near fainting. Patient signed out to oncoming provider Dr. Campos at shift-change with pending 3 hr troponin. Discharge if stable. Findings not consistent with ACS, PE, pneumonia, SVT or A-fib with RVR. Disposition of palpitations. Patient verbalized understanding of the plan and return to ED criteria and engaged in shared decision making. Medical Records Medical records reviewed: Yes I reviewed the patient's medical records. Imaging Data Radiologic Study: Imaging: X-Ray My impression: Pending at sign-out Lab Data Lab results reviewed: Yes I reviewed the patient's lab results. Labs: Laboratory Tests Range/Units 09/09/23 21:30 WBC (4.4-10.8) 10^3/uL 14.72 H RBC (4.36-5.78) 10^6/uL 5.66 Hgb (13.5-17.5) g/dL 16.9 Hct (40.0-50.0) % 50.8 H MCV (80-95) fL 90 MCH (27.0-33.0) pg 29.9 MCHC (32.0-36.0) % 33.3 RDW (11.8-14.1) % 13.3 Plt Count (130-400) 10^3/uL 347 MPV (8.0-11.0) fL 9.6 Immature Gran % 0.3 Neutrophils % 75.9 Lymphocytes % 14.9 Monocytes % 6.6 Eosinophils % 1.8 Basophils % 0.5 Nucleated RBC % (0.0-0.3) % 0.0 Absolute Neutrophils (1.2-6.7) 10^3/uL 11.17 H Absolute Lymphocytes (1.2-3.4) 10^3/uL 2.19 Absolute Monocytes (0.1-0.8) 10^3/uL 0.97 H Absolute Eosinophils (0.0-0.7) 10^3/uL 0.26 Absolute Basophils (0.0-0.2) 10^3/uL 0.07 D-Dimer (<500) ng/mlFEU 374 VBG Lactate (0.6-1.4) mmol/L 1.5 H Sodium (136-145) mmol/L 143 Potassium (3.5-5.1) mmol/L 3.5 Chloride (98-107) mmol/L 106 Carbon Dioxide (21.0-32.0) mmol/L 26.7 Anion Gap (3-11) mmol/L 10.3 BUN (7-18) mg/dL 11 Creatinine (0.70-1.30) mg/dL 1.3 Est GFR (CKD-EPI 2020) (mL/min/1.73m2) 70.78 Glucose (74-106) mg/dL 80 Calcium (8.5-10.1) mg/dL 8.7 Total Bilirubin (0.2-1.0) mg/dL 0.6 AST (15-37) U/L 35 ALT (16-63) U/L 50 Alkaline Phosphatase (46-116) U/L 105 Troponin I (< or =60) ng/L 79 H* C-Reactive Protein (<or=0.5) mg/dL 1.88 H NT-Pro-B Natriuret Pep (<300) pg/mL 48 Total Protein (6.4-8.2) g/dL 7.8 Albumin (3.4-5.0) g/dL 3.7 Lipase (16-77) U/L 31 TSH (0.36-3.74) uIU/mL 3.86 H Quality:SDOH Health Related Social Needs: No Data to Display PFSH All Active Problems Hypogonadism in male (Acute) Hypothyroidism (Chronic) Abdominal pain (Acute) Bronchospasm (Acute) Right inguinal pain (Acute) Bilateral inguinal hernia (Acute) Low testosterone in male (Acute) Sleep apnea (Acute) CPAP (continuous positive airway pressure) dependence (Acute) Tubular adenoma (Acute ~07/2020) on EGD, repeat 6 months Palpitations (Acute) SVT (supraventricular tachycardia) (Chronic) Familial polyposis of colon (Acute) family hx-has routine proctoscopies with Dr. 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 states it wasn't chest pain but acid reflux Medical History Sleep apnea Familial polyposis Surgical History (Updated 06/17/23 @ 11:10 by Bianca Celestin) History of esophagogastroduodenoscopy (EGD) (~2023) H/O colectomy (~2002) Per Dr Fulton's office note dated 04/13/13 patient was 10 years s/p total abdominal colectomy proctectomy with ileoanal anastamosis for a FAP. PROCTOSCOPY (~05/2023) 05/03/14, 2020 Anoscopy (03/2021) 2021. acute and chronic inflammation. with biopsy - flat, low grade dysplasia Family History Mother , age 60 Colon cancer Father Hyperlipidemia Sister Cancer ?thyroid cancer Maternal Grandfather , age 80 No problems noted. Paternal Grandfather , age 50 No problems noted. Maternal Grandmother No problems noted. Paternal Grandmother , age 80 No problems noted. Social History Smoking/Tobacco Use Status: Never Second Hand Exposure: No Smoking risk assessment performed?: Yes Alcohol Intake: current Alcohol Intake frequency: a few times a month Alcohol type: beer Drug use: Never Substance use type: does not use Caregiver/Support person: No Household members: spouse, family and children Housing: house Communication Needs: None Do you need help understanding health information?: Never Pets and animals: Yes Pets and animals: cat(s) and dog(s) Sexually active: Yes Do you think of yourself as: straight/heterosexual Current gender identity: male What is your relationship status?: How often do you talk on the phone with friends or family?: three or more times per week How often do you get together with friends or relatives?: once per week How often do you attend gnosticism or scientologist services?: decline to answer Do you belong to any clubs or organized social groups?: no Panel score (0-1 are the most socially isolated patients): 2 What type of physical activity do you participate in: none Duration: < 15 minutes/day Frequency: 1-2 times per week Alivia/Caodaism: No preference Special alivia needs: No Seatbelt use: always Helmet use: Yes Helmet use: always Drive intox or ride w/intox [employer] delivery driver: No Do you feel safe at home: Yes Do you feel safe in your relationship?: Yes Victim of physical abuse: No Victim of emotional abuse: No Would you like helpful sources: No
[2023-09-09 21:38] LABS: Lactate 1.5 mmol/L (0.6-1.4)
[2023-09-09 21:40] LABS: Abs Immature Grans 0.05 10^3/uL (0.0-0.06); Absolute Basophil Count 0.07 10^3/uL (0.0-0.2); Absolute Lymphocyte Count 2.19 10^3/uL (1.2-3.4); Absolute Monocyte Count 0.97 10^3/uL (0.1-0.8); Absolute Neutrophil Count 11.17 10^3/uL (1.2-6.7); Basophils % 0.5; Eosinophils % 1.8; HCT 50.8 % (40.0-50.0); HGB 16.9 g/dL (13.5-17.5); Immature Grans % 0.3; Lymphocytes % 14.9; MCH 29.9 pg (27.0-33.0); MCHC 33.3 % (32.0-36.0); MCV 90 fL (80-95); MPV 9.6 fL (8.0-11.0); Monocytes % 6.6; Neutrophils % 75.9; Platelet Count 347 10^3/uL (130-400); RBC 5.66 10^6/uL (4.36-5.78); RDW 13.3 % (11.8-14.1); RDW-SD 44.2 fL; WBC 14.72 10^3/uL (4.4-10.8)
[2023-09-09 21:42] LABS: Absolute Eosinophil Count 0.26 10^3/uL (0.0-0.7)
[2023-09-09] MEDS: Normal Saline 1,000 ML 1000 ML IV (21:51)
[2023-09-09 22:09] LABS: D-Dimer 374 ng/mlFEU (<500)
[2023-09-09 22:12] LABS: ALT 50 U/L (16-63); AST 35 U/L (15-37); Albumin 3.7 g/dL (3.4-5.0); Alkaline Phosphatase 105 U/L (46-116); Anion Gap 10.3 mmol/L (3-11); BUN 11 mg/dL (7-18); Bilirubin, Total 0.6 mg/dL (0.2-1.0); C-Reactive Protein 1.88 mg/dL (<or=0.5); CO2 26.7 mmol/L (21.0-32.0); CREATININE 1.3 mg/dL (0.70-1.30); Calcium 8.7 mg/dL (8.5-10.1); Chloride 106 mmol/L (98-107); Estimated GFR 70.78 (mL/min/1.73m2); Glucose 80 mg/dL (74-106); Lipase 31 U/L (16-77); NT-proBNP 48 pg/mL (<300); Potassium 3.5 mmol/L (3.5-5.1); Sodium 143 mmol/L (136-145); TSH (W/Ref FT4) 3.86 uIU/mL (0.36-3.74); Total Protein 7.8 g/dL (6.4-8.2)
[2023-09-09 22:14] LABS: Troponin I 79 ng/L (< or =60)
--- NOTE | 2023-09-09 22:15 | DI.RAD_ITS ---
Exam(s) XR CHEST 2V PA LATERAL EXAM: XR CHEST 2V PA LATERAL CLINICAL HISTORY: palpitations TECHNIQUE: 2D digital imaging was performed. Two views. COMPARISON: CR,XR XR ABD FLAT UPRIGHT PA CHEST from 07/24/2022 FINDINGS: HEART: Normal size. Aorta: Not dilated. PULMONARY VASCULATURE: Normal. LUNGS: Clear. PLEURAL SPACE: No pleural effusion or pneumothorax. BONE:Unremarkable for age. Soft tissues: Unremarkable. IMPRESSION: No acute abnormality. DATA REPOSITORY: RADIATION DOSE DELIVERED:
[2023-09-09] MEDS: Aspirin 81 MG CHEW 324 MG CH (22:24)
[2023-09-09 22:31] LABS: FREE T4 1.03 ng/dL (0.76-1.46)
--- NOTE | 2023-09-09 23:09 | W.EDPROG ---
Date of service: 09/09/23 Time of Service: 23:09 Medical Decision Making This patient was signed out to me. Please see previous notes for H&P and initial eval. In brief, 43yo M with hx possible PSVT presenting with palpitations, HR up to 160 on apple watch at home. No chest pain at any point. HR 90's-110's on arrival, EKG SR. Labs overall unremarkable; did have a mild troponin elevation at 79 thought to rate related. Offgoing clinician discussed with patient and plan made to repeat troponin and if stable/downtrending discharge home to outpatient followup with cardiology which seems appropriate. Repeat troponin slightly increased to 130. I do not find this unexpected given the time course of his symptoms with about 5 hours of palpitations and possible SVT prior to arrival and resolution of tachycardia shortly after presentation to the ED. He has never had chest pain at any point and I do not think this represents ischemic cardiac disease however it is hard to justify sending him home in the setting of rising troponins. With the resolution of his tachycardia 5 hours I suspect his troponin will plateau and begin to downtrend within the next 3-6 hours if indeed this was the cause. On reassessment he remains well appearing with normal vital signs, again denies chest pain. He would prefer to go home however is willing to stay for one additional troponin. Repeat troponin as expected downtrending to 111. Discharged home; discharge instructions and return precautions were reviewed with patient who verbalized understanding. Will followup with cardiology. All questions were answered and he is in full agreement with the plan. Quality:[facility]MA Health Related Social Needs: No Data to Display Sign Out Sign Out Data: Sign Out Comment: Palpitations without CP - had tachy at home for 4-5 hours at 130-160, resolved now. Initial trop 79, repeat 0030 tonight. CXR in the meantime 324mg ASA and 1L IVF given. HEART low risk, likely d/c with stable trop, patient has cardiology care, is comfortable with risk profile and outpatient follow-up Last updated by Won Abdalla PA at 09/09/23 22:23 Discharge Plan Disposition Patient Disposition: Home Condition: Good Discharge Details Clinical Impression: SVT (supraventricular tachycardia) Primary Care Provider: Darian Torrez ED Provider: Candace Campos Home Meds and New Rx's Prescriptions: Continued testosterone cypionate [Depo-Testosterone] 200 mg/mL oil 100 mg IM QWEEK Qty: 10 5RF (DME) syringe with needle, safety [Easy Touch SheathLock Syrg-Ndl] 3 mL 22 gauge x 1 syringe See Rx Instructions .ROUTE .MEDSUPPLY Qty: 24 1RF Rx Instructions: inject every 1 week levothyroxine 112 mcg capsule 112 mcg PO DAILY Qty: 90 3RF Discharge Instructions Instructions: Supraventricular Tachycardia (ED) Additional Instructions: Followup with cardiology- they will call you to schedule an appointment. Call your primary care doctor today to schedule an appointment for before the end of the week to follow up on your visit today. Return to the emergency department for new or worsening symptoms including if your heart rate gets high again and does not respond to vagal maneuvers, if you develop chest pain, shortness of breath, lightheadedness, or if you have any other concerns. Stand Alone Forms: Work Release Referrals: Darian Torrez MD [Primary Care Provider] -
--- NOTE | 2023-09-09 23:35 | DI.VRAD_ITS ---
PROCEDURE INFORMATION: Exam: XR Chest Exam date and time: 09/09/2023 10:52 PM Age: 43 years old Clinical indication: Other: Palpitations TECHNIQUE: Imaging protocol: Radiologic exam of the chest. Views: 2 views. COMPARISON: CR XR ABD FLAT UPRIGHT PA CHEST 07/24/2022 8:35 PM FINDINGS: Lungs: Unremarkable. No consolidation. Pleural spaces: Unremarkable. No pleural effusion. No pneumothorax. Heart/Mediastinum: Unremarkable. No cardiomegaly. Bones/joints: Unremarkable. IMPRESSION: No acute findings. Dictated and Authenticated by: Se Bravo MD. Ordering:PRERNA Upton MD
[2023-09-10] VITALS (34 sets, daily range): BP systolic 108–127; BP diastolic 61–76; PULSE 67–83; RESP 11–23; O2SAT 95–100
[2023-09-10 01:03] LABS: Troponin I 130 ng/L (< or =60)
[2023-09-10 03:52] LABS: Troponin I 111 ng/L (< or =60)
--- NOTE | 2023-09-10 04:07 | NUR.NOTE ---
Referral faxed to [facility] to f/u in 1-2 weeks for SVT.Nursing Note:
== END 2023-09-10 04:23 | disposition home or self-care (01) ==
PROVIDERS: Physician Assistant; Emergency Provider Student in an Organized Health Care Education/Training Program; PCP Family Medicine
DX: R20.0 Anesthesia of skin (principal)
CPT/HCPCS: 00123; 80053; 83690; 93005; 99285; 71046; 83605; 83880; 84439; 84443; 84484; 85025; 85379; 86140; 93010; 99284

== ENCOUNTER 2024-01-08 10:53 | Day surgery (SDC) | payer OTHER, SELFPAY ==
--- NOTE | 2024-01-07 19:52 | ROE_ITS ---
Date of service: 01/08/24 Time of Service: 14:49 Operative Note Operative Note DATE OF PROCEDURE: 01/08/24 PRE-OP DIAGNOSIS: Anorectal discomfort with familial adenomatous polyposis Chronic pouchitis PROCEDURE: Proctoscopy with biopsies SURGEON: Feng Ma ANESTHESIA TYPE: General:No Airway Refer to Anesthesia Record ESTIMATED BLOOD LOSS: 10 PATHOLOGY: other (Biopsies of pouchitis) COMPLICATIONS: None Patient was transported to: same day Patient's condition: stable Indications: Wilbert is a 43-year-old male with history of familial adenomatous polyposis. He is undergoing total abdominal colectomy with ileal pouch anal anastomosis. Over the past several months, he has had some anorectal discomfort that has been atypical for him. Findings: Chronic pouchitis Procedure Description: After the induction of monitored anesthetic care, and with the patient in left lateral decubitus position, I began by performing an external anorectal exam.? Perineum and skin were normal, as was the anal verge.? There was no evidence of external hemorrhoids.? Next, I performed a digital rectal exam.? I did not appreciate any abnormal findings.? Next, I advanced a colonoscope into the anal canal and the ileal pouch. I performed retroflexion.? This appeared normal.? There was some contamination of the pouch with retained succus and stool. Time was spent irrigating this clean. There was an area of chronic inflammation with some fibrinous exudate that seems consistent with his previous proctoscopies and had the clinical appearance of chronic pouchitis. Some of the exudate was irrigated clean. Narrowband imaging was used to assist with analysis of the pouch. Thorough examination was conducted over the entire area, and then the camera was advanced up into the terminal ileum. Aside from the previously mentioned signs of chronic inflammation, I saw no evidence of any adenomatous changes. I did perform multiple biopsies of the pouchitis using cold forceps. There was minimal amount of bleeding. The pouch was then emptied, and the camer a was withdrawn as the patient was awoken from anesthesia and transferred back to the day surgery unit.
--- NOTE | 2024-01-07 19:53 | W.PM.DSUDISC ---
Date of service: 01/08/24 Time of Service: 15:04 Discharge Plan Disposition Patient Disposition: Home Condition: Good Discharge Details Reason For Visit: Proctoscopy Attending Provider: Feng Ma Primary Care Provider: Darian Torrez Home Meds and New Rx's Prescriptions: Continued testosterone cypionate [Depo-Testosterone] 200 mg/mL oil 100 mg IM QWEEK Qty: 10 5RF (DME) syringe with needle, safety [Easy Touch SheathLock Syrg-Ndl] 3 mL 22 gauge x 1 syringe See Rx Instructions .ROUTE .MEDSUPPLY Qty: 24 1RF Rx Instructions: inject every 1 week metoprolol succinate 50 mg tablet extended release 24 hr 50 mg PO DAILY MDD 50 PRN (Reason: rapid heart beat) Qty: 10 3RF levothyroxine 112 mcg capsule 112 mcg PO DAILY Qty: 90 3RF Discharge Instructions Additional Instructions: Chance, We are able to do your endoscopy today without much difficulty. I hope you are comfortable for it. I did not see anything at all alarming. You do have some signs of chronic inflammation that seem very consistent with the last endoscopy. I did do some biopsies of this just to be safe. Otherwise, I did see any polyps or anything alarming. I will certainly let you know when the biopsy results are available. 1. If tolerated, consume a soft, low fiber diet for 1-2 days. 2[address] Do not drive, drink alcohol, operate machinery, make critical decisions, or do activities that require coordination or balance for 24 hours. 3. Because air was put into your colon during the procedure, expelling air from your rectum (passing gas or farting) is normal. 4. You may not have a bowel movement for 1-3 days because of the colonoscopy prep. This is normal. 5. Go directly to the emergency room if you notice any of the following: Develop chills (warm to touch), or if you have a thermometer and your temperature is above 101 Difficulty breathing or difficultly swallowing Persistent vomiting Severe abdominal pain, other than gas cramps Severe chest pain Black, tarry stools Any bleeding ? exceeding one tablespoon 6. Call your physician if the site where your intravenous was started becomes red, swollen, painful, and warm to touch. 7. Your physician has reviewed your pre-procedure medications. Please continue to take those medications as previously ordered. You will be given specific information/education regarding any changes to your medications before leaving. Activity:: Activity as Tolerated Diet:: As Tolerated DS: Diagnosis Discharge Diagnosis (1) Familial polyposis of colon: Status: Acute Asessment and Plan: Follow-up on biopsy results
[2024-01-08 11:38] VITALS: BP 135/83; PULSE 66; RESP 16; TEMP 37.1; O2SAT 98
[2024-01-08 11:43] VITALS: BP 135/83; PULSE 66; RESP 16; TEMP 37.1; O2SAT 98
[2024-01-08] MEDS: Lactated Ringers 1,000 ML 80 ML IV (11:56)
--- NOTE | 2024-01-08 12:09 | ANES.PREOP_ITS ---
General Info Date of Service Date Performed: 01/08/24 Height: 5 ft 11 in Weight: 154.9 kg Body Mass Index (BMI): 47.6 Surgical Procedure: Operation Date: 01/08/24 13:20 Proposed Procedure Side Surgeon romulo Ma MD Meds Allergies and Home Medications Allergies Allergy/AdvReac Type Severity Reaction Status Date / Time doxycycline AdvReac Intermediate heartburn Verified 01/08/24 11:34 Home Medication ?Medication ?Instructions ?Recorded syringe with needle, safety 3 mL #24 ea 08/07/23 22 gauge x 1 (Easy Touch SheathLock Syringe with Needle) testosterone cypionate 200 mg/mL 100 mg (0.5 mL) IM QWEEK #10 mL 08/07/23 intramuscular oil (Depo-Testosterone) metoprolol succinate 50 mg 50 mg PO DAILY PRN rapid heart 09/12/23 tablet,extended release 24 hr beat #10 tabs levothyroxine 112 mcg capsule 112 mcg PO DAILY #90 caps 09/18/23 Current Visit Medications: Current Medications Generic Name Dose Route Start Last Admin Trade Name Giuliano PRN Reason Stop Dose Admin Ringer's Solution 1,000 mls @ 80 mls/hr 01/08/24 06:00 01/08/24 11:56 IV 01/08/24 23:59 80 mls/hr INFUSION ARIANA Administration IV Miscellaneous Supplies 1 each 01/08/24 06:00 Iv Access IV 01/08/24 23:59 DIRECTED ARIANA Sodium Chloride 0 ml 01/08/24 06:00 Normal Saline Flush 10 Ml Syr IV 01/08/24 23:59 PRN PRN Sodium Chloride 0 ml 01/08/24 06:00 Normal Saline 10 Ml Vial IJ 01/08/24 23:59 DIRECTED PRN Sterile Water 0 ml 01/08/24 06:00 Water,Injection,Sterile 10 Ml Vial IJ 01/08/24 23:59 DIRECTED PRN PFSH Active Problems Active Problems: Problem Status Onset Code Tachycardia Acute R00.0 Hypogonadism in male Acute E29.1 Hypothyroidism Chronic E03.9 Abdominal pain Acute R10.9 Bronchospasm Acute J98.01 Right inguinal pain Acute R10.31 Bilateral inguinal hernia Acute K40.20 Low testosterone in male Acute R79.89 Sleep apnea Acute G47.30 CPAP (continuous positive airway pressure) dependence Acute Z99.89 Tubular adenoma Acute ~07/2020 D36.9 Palpitations Acute R00.2 SVT (supraventricular tachycardia) Chronic I47.1 Familial polyposis of colon Acute D12.6 Seasonal allergies Acute J30.2 Otitis media Acute H66.90 URI (upper respiratory infection) Acute J06.9 Family history of familial adenomatous polyposis Acute Z83.71 Tubular adenoma of colon Acute 05/03/14 D12.6 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 PROCTOSCOPY (~05/2023) 05/03/14, 2020 Anoscopy (03/2021) 2021. acute and chronic inflammation. with biopsy - flat, low grade dysplasia Tobacco Smoking/Tobacco Use Status: Never Passive smoking exposure: No Second hand exposure: No Alcohol Alcohol Intake: current Alcohol intake frequency: a few times a month Alcohol type: beer Substance Use Substance use: Never Substance use type: does not use Vital Signs and Lab Results Vital Signs Most Recent Vital Signs in EMR: Most Recent Vital Signs Temp Pulse Resp BP Pulse Ox 37.1 C 66 16 135/83 98 01/08/24 11:43 01/08/24 11:43 01/08/24 11:43 01/08/24 11:43 01/08/24 11:43 Lab Results Blood Type / Crossmatch: No Data to Display Complete Blood Count: No Data to Display Complete Metabolic Panel: No Data to Display Liver Function Panel: No Data to Display Coagulation Panel: No Data to Display Cardiac Panel: No Data to Display Arterial Blood Gas: No Data to Display Venous Blood Gas: No Data to Display Pancreas Panel: No Data to Display Thyroid Panel: No Data to Display Infectious Disease: No Data to Display Blood Cultures: No Data to Display Toxicology Panel: No Data to Display Imaging and Studies Imaging and Studies Study information below may be from another EMR and interpreted by another provider. Please see original notes in EMR for more complete details. EKG Summary: EKG PATIENT NAME: Wilbert Saenz UNIT #: [id number] ORDERING PROVIDER: Won Abdalla PRIMARY CARE PROVIDER: DARIAN TORREZ MD DATE/TIME OF SERVICE: 09/09/232118 : 1980 PERFORMING LOCATION: ER APPROVED REPORT Exam: Resting ECG Reason for Exam: high hr Patient Location: E HR:101 bpm ECG Measurements Heart Rate 101 AXIS TX 182 P 69 QRSd 80 QRS 163 QT 313 T30 QTc 407 Conclusion Sinus tachycardia 101 right axis no stemi --- <Electronically signed by Hal Garcias M.D. in [place]> E-Sign Date: 09/11/23 E-Sign Time: 1837 ADDENDUM APPROVED REPORT Exam: Resting ECG Reason for Exam: high hr Patient Location: E HR:101 bpm ECG Measurements Heart Rate 101 AXIS TX 182 P 69 QRSd 80 QRS 163 QT 313 T30 QTc 407 Conclusion Sinus tachycardia 101 right axis no stemi I have reviewed and I agree with the emergency room physician's ECG interpretation. Electronically signed by: <Electronically signed by Mitzi Xiao M.D. in [place]> 09/12/23 0815 Cosigned by: Stress Test Summary: 01/2015: LVEF 60-65%, no hemodynamically sig valve lesion. Echocardiogram Summary: Patient Name: WILBERT SAENZ Unit #: [id number] Loc: DI Ordering Provider: Song Garcia M.D. Status: REG CLI Primary Care Provider: Darian Torrez Date of Exam: 01/27/15 Sex: M : 1980 Age: 34 Exam(s) [id number] US:Echocardiogram Heart *[facility]* * Cardiology* [address] [place] [address] Date of study: 01/27/2015 Transthoracic Echocardiography M-mode, complete 2D, complete spectral Doppler, and color Doppler *STUDY CONCLUSIONS* Impressions: Normal study. Summary: 1. Left ventricle: The cavity size was normal. Wall thickness was normal. Systolic function was normal. The estimated ejection fraction was 60-65%. Wall motion was normal; there were no regional wall motion abnormalities. 2. Aortic valve: Trileaflet; normal thickness leaflets. Transvalvular velocity was within the normal range. There was no stenosis. 3. Mitral valve: Structurally normal valve. 4. Left atrium: The atrium was normal in size. 5. Right ventricle: The cavity size was normal. Wall thickness was normal. Systolic function was normal. 6. Pulmonary arteries: Pulmonary systolic pressure was within the normal range. *PATIENT PRESENTATION* Height: 180.3cm (71in ) S/D Pressure: 132 / 72 Weight: 130.6kg (287.4lb ) BSA: 2.61m^2 Test start time: 03:00 PM. Test stop time: 04:14 PM. ORDERING Efe Molina MD REFERRING Song Garcia [employer]ION AGENT Christi Brooks PERFORMING [facility] *PROCEDURE DATA* Procedure information: [facility] INFO: [id number] This study was interpreted by [facility]. Pertinent images and digital data are archived for permanent storage and are available for subsequent review. No prior study was available for comparison. Study status: Routine. Transthoracic echocardiography. M-mode, complete 2D, complete spectral Doppler, and color Doppler. A Transthoracic Echocardiogram was performed. Scanning was performed from the parasternal, apical, subcostal, and suprasternal notch acoustic windows. Study completion: The patient tolerated the procedure well. History: PMH: Palpitations; Abnormal EKG. *CARDIAC ANATOMY* Left ventricle: The cavity size was normal. Wall thickness was normal. Systolic function was normal. The estimated ejection fraction was 60-65%. Wall motion was normal; there were no regional wall motion abnormalities. Aortic valve: Trileaflet; normal thickness leaflets. Mobility was not restricted. Doppler: Transvalvular velocity was within the normal range. There was no stenosis. No regurgitation. VTI ratio of LVOT to aortic valve: 0.77. Indexed valve area: 1.2cm^2/m^2 (VTI). Peak velocity ratio of LVOT to aortic valve: 0.73. Indexed valve area: 1.1cm^2/m^2 (Vmax). Mean gradient: 2.8mm Hg (S). Peak gradient: 6.2mm Hg (S). Aorta: Aortic root: The aortic root was normal in size. Mitral valve: Structurally normal valve. Mobility was not restricted. Doppler: Transvalvular velocity was within the normal range. There was no evidence for stenosis. No significant regurgitation. Valve area by pressure half-time: 3.3cm^2. Indexed valve area by pressure half-time: 1.3cm^2/m^2. Peak gradient: 2.6mm Hg (D). Left atrium: Well visualized. The atrium was normal in size. Right ventricle: The cavity size was normal. Wall thickness was normal. Systolic function was normal. Pulmonic valve: Doppler: Transvalvular velocity was within the normal range. There was no evidence for stenosis. No regurgitation. Tricuspid valve: Structurally normal valve. Doppler: Transvalvular velocity was within the normal range. There was no evidence for stenosis. Trivial regurgitation. Pulmonary artery: Pulmonary systolic pressure was within the normal range. Right atrium: The atrium was normal in size. Pericardium: There was no pericardial effusion. Systemic veins: Inferior vena cava: Not visualized. Baseline ECG: Normal sinus rhythm. *MEASUREMENT TABLES* 2D measurements Normal Left ventricle LV internal dimension, ED, chordal level, PLAX 49.5 mm 43- 52 LV internal dimension, ES, chordal level, PLAX 29.2 mm 23- 38 Fractional shortening, chordal level, PLAX 41 % >29 LV posterior wall thickness, ED 12 mm ------ IVS/LVPW ratio, ED 1 <1.3 Ejection fraction 71.6 % ------ Stroke volume 82.7 ml ------ Stroke index 31.6 ml/m^2 ----- Volume, ED, MOD, 1-plane 98.5 ml ------ Ejection fraction, MOD, 1-plane 62 % ------ Volume index, ED, MOD, 1-plane 38 ml/m^2 ----- Ventricular septum Septal thickness, ED 12 mm ------ Aorta Root diameter, ED 30.9 mm ------ Left atrium Area ES, A4C 19.8 cm^2 8.8- Volume index, S 25.7 ml/m^2 ----- Right atrium Area, ES 21.4 cm^2 ---- Doppler measurements Normal Main pulmonary artery Pressure, S 24 mm Hg <=30 Left ventricle IVRT *117 ms 60-100 Ea, medial annulus, tissue Doppler 16 cm/s ------ E/Ea, medial annulus, tissue Doppler 5 ------ LVOT Peak velocity, S 90 cm/s ------ VTI, S 17.3 cm ------ Peak gradient, S 3.2 mm Hg ------ Mean gradient, S 1.8 mm Hg ------ Aortic valve Peak velocity, S 124 cm/s ------ Mean velocity, S 77 cm/s ------ VTI, S 22.5 cm ------ Mean gradient, S 2.8 mm Hg ------ Peak gradient, S 6.2 mm Hg ------ VTI ratio, LVOT/AV 0.77 ------ Valve area index, VTI 1.2 cm^2/m^2 ------- Anesthesia Assessment and Plan Anesthesia History Personal History: No History of Anesthesia Complications Family History: No Family History of Anesthesia Complications Exercise Tolerance Exercise Tolerance: Metabolic Equivalents>4 Pertinent Negatives Pertinent Negatives: No Symptoms of GERD Cardiac & Pulmonary Exam Cardiac Exam: Normal S1/S2 Heart Sounds Pulmonary Exam: Clear Bilateral Breath Sounds Implantable Cardiac Device Does patient have a Pacemaker or an ICD?: No Airway Exam Known Difficult Airway: No Mallampati Class: 3 Mouth Opening: Narrow (< 3cm) Thyromental Distance: Greater than 3 cm Neck Range of Motion: Full ROM Neck Circumference: Thick Teeth Condition: Normal Dentition ASA Classification ASA Score: ASA 3 Emergency Case?: No NPO Status NPO Status: NPO Clears >2 hours, Solids >8 hours Anesthesia Plan Resuscitation Status: Full Code Anesthesia Technique: General Anesthesia Airway Planned: Natural Airway Monitors Used: Standard Monitors Preoperative Comments:: 40 yo male for flex sig. Sig PMHx: BONNY, bronchospasm (albuterol), hashimotos (levothyroxine), SVT, never smoker, occ EtOH, cannabis. Previous anes: has had flex sig multiple times Propofol between 150-300 mg up front, tolerated well.
[2024-01-08 12:54] VITALS: BMI 47.6
--- NOTE | 2024-01-08 14:37 | BOWEL_PTH ---
PATIENT: Wilbert Saenz LOC: [facility] U#:[id number] AGE/SX: 43/M ROOM: RE01/08/[address]: Feng Ma MD : 1980 BED: DIS: 01/08/2024 SPEC #: [id number] RECD: 01/08/24 18:14 STATUS: ALBERT REQ #: [id number] ZOË: 01/08/24 14:[address]: Feng Ma DEPT: Surgical Specimen RECD BY: Amina Rowland ENTERED: 01/08/24 18:14 SP TYPE: Bowel OTHR DR: Darian Torrez MD Tissues: 1 - BIOPSY BOWEL Procedures: GROSS AND MICRO LEVEL 4 IMMUNOPEROXIDASE STAIN Comments: [id number]
[2024-01-08 14:49] VITALS: BP 129/76; PULSE 68; RESP 15; TEMP 36.7; O2SAT 94
--- NOTE | 2024-01-08 15:25 | W.ANESPOSTOP ---
Postoperative Evaluation Date, Time and Location Date Performed: 01/08/24 Time Performed: 15:04 Patient Location: Day Surgery Unit Vital Signs Most Recent Imported Vital Signs: Most Recent Vital Signs Temp Pulse Resp BP Pulse Ox 36.7 C 68 15 129/76 94 01/08/24 14:49 01/08/24 14:49 01/08/24 14:49 01/08/24 14:49 01/08/24 14:49 Assessment Mental Status: Awake (Alert & Oriented to Patient Baseline) Airway and Respiratory Function: Patent airway with normal (patient baseline) respiratory exam Cardiovascular Function: Hemodynamically Stable Hydration Status: Adequately Hydrated Nausea & Vomiting: No Nausea or Vomiting Pain: Pt. Denies Any Pain Peripheral Nerve Block: Patient did not receive a nerve block
== END 2024-01-08 15:16 | disposition home or self-care (01) ==
LOC: SUR 10:53
PROVIDERS: PCP Family Medicine; Visit Provider Surgery
PROC: 0DJD8ZZ Inspection of Lower Intestinal Tract, Via Natural or Artificial Opening Endoscopic (ICD-10-PCS; CPT 45378; principal; 2024-01-08 13:15)
DX: K62.89 Other specified diseases of anus and rectum; D13.91 Familial adenomatous polyposis; K91.850 Pouchitis
CPT/HCPCS: 45305; 88305; 88361; J2704

== ENCOUNTER 2024-02-26 14:48 | Outpatient (CLI) | payer OTHER, SELFPAY ==
--- NOTE | 2024-02-26 14:00 | DI.RAD_ITS ---
Exam(s) XR CHEST 2V PA LATERAL EXAM: XR CHEST 2V PA LATERAL CLINICAL HISTORY: evaluate pna R05.9 COUGH. TECHNIQUE: 2D digital imaging was performed. COMPARISON: CR,XR XR CHEST 2V PA LATERAL from 09/09/2023 FINDINGS: 2 views: Heart size is normal. The mediastinum is not widened. Left lung is clear. However, there are 2 parallel band-like densities in the mid right lung seen on the frontal view, not previously evident. One of these may represent some fluid in the minor fissure. The other is eithe r atelectasis and/or developing infiltrate. There are no obvious pleural effusions. IMPRESSION: Atelectasis/developing infiltrate in the mid right lung field. Predominately right upper lobe. Left lung is clear. There are no pleural effusions. DATA REPOSITORY: RADIATION DOSE DELIVERED:
== END 2024-02-26 15:08 ==
LOC: DI 14:48
PROVIDERS: PCP Family Medicine; Visit Provider Nurse Practitioner Family
DX: J98.11 Atelectasis (principal)
CPT/HCPCS: 71046

== ENCOUNTER 2024-08-12 08:12 | Outpatient (CLI) | payer BC, SELFPAY ==
[2024-08-12 08:34] LABS: Hemoglobin A1C 5.5 % (<5.7)
[2024-08-12 08:58] LABS: TSH 5.28 uIU/mL (0.36-3.74)
[2024-08-13 08:39] LABS: Lab Add On Test DONE
[2024-08-13 09:12] LABS: FREE T4 0.98 ng/dL (0.76-1.46)
[2024-08-19 15:14] LABS: Testosterone, Free 26.8 ng/dL (4.46-17.1); Testosterone, Total 821 ng/dL (240-950)
== END 2024-08-12 08:13 | disposition home or self-care (01) ==
LOC: LBO 08:12
PROVIDERS: PCP Family Medicine; Visit Provider Emergency Medicine
DX: E11.9 Type 2 diabetes mellitus without complications (principal); E03.9 Hypothyroidism, unspecified; E29.1 Testicular hypofunction
CPT/HCPCS: 36415; 84402; 84403; 83036; 84439; 84443

== ENCOUNTER 2024-09-20 04:44 | Emergency (ER) | payer BC, SELFPAY ==
[2024-09-20] VITALS (22 sets, daily range): BP systolic 109–129; BP diastolic 66–94; PULSE 82–133; RESP 11–28; TEMP 35.7; O2SAT 90–99
[2024-09-20] MEDS: Lactated Ringers 1,000 ML 1000 ML IV (05:14)
[2024-09-20] MEDS: Ondansetron 4 MG/2 ML VIAL IVP (05:14)
[2024-09-20] MEDS: ACETAMINOPHEN 1,000 MG/100 ML BTL 400 MG IVPB (05:14)
[2024-09-20] MEDS: Ketorolac 15 MG/ML VIAL IVP (05:14)
[2024-09-20 05:15] LABS: Lactate 1.2 mmol/L (<or=2.0)
[2024-09-20 05:16] LABS: Abs Immature Grans 0.06 10^3/uL (0.0-0.06); Absolute Basophil Count 0.06 10^3/uL (0.0-0.2); Absolute Eosinophil Count 0.08 10^3/uL (0.0-0.7); Absolute Lymphocyte Count 0.75 10^3/uL (1.2-3.4); Absolute Monocyte Count 0.96 10^3/uL (0.1-0.8); Basophils % 0.3 %; Eosinophils % 0.4 %; Immature Grans % 0.3 %; Lymphocytes % 3.9 %; MCH 28.3 pg (27.0-33.0); MCHC 33.4 % (32.0-36.0); MCV 85 fL (80-95); MPV 10.3 fL (8.0-11.0); Neutrophils % 90.1 %; Platelet Count 384 10^3/uL (130-400); RBC 6.96 10^6/uL (4.36-5.78); RDW 15.3 % (11.8-14.1); RDW-SD 44.1 fL; WBC 19.13 10^3/uL (4.4-10.8)
--- NOTE | 2024-09-20 05:18 | ED.GENADUL_ITS ---
Discharge Plan Disposition Patient Disposition: [facility] to [facility] Condition: Improving Discharge Details Chief Complaint: Abd Prob Clinical Impression: Small bowel obstruction Primary Care Provider: Darian Torrez ED Provider: Won Staples Home Meds and New Rx's Prescriptions: No Action (DME) syringe with needle, safety [Easy Touch SheathLock Syrg-Ndl] 3 mL 22 gauge x 1 syringe See Rx Instructions .ROUTE .MEDSUPPLY Qty: 24 1RF Rx Instructions: inject every 1 week metoprolol succinate 50 mg tablet extended release 24 hr 50 mg PO DAILY MDD 50 PRN (Reason: rapid heart beat) Qty: 10 3RF tirzepatide 2.5 mg/0.5 mL pen injector 2.5 mg subcut QWEEK Qty: 2 0RF Rx Instructions: for 4 weeks levothyroxine 112 mcg capsule 112 mcg PO DAILY Qty: 90 3RF albuterol sulfate 90 mcg/actuation HFA aerosol inhaler 2 puff inhalation Q6H PRN (Reason: shortness of breath or wheezing) Qty: 8.5 0RF testosterone cypionate [Depo-Testosterone] 200 mg/mL oil 100 mg IM QWEEK Qty: 10 5RF Zepbound 2.5 mg/0.5 mL pen injector 2.5 mg subcut QWEEK Qty: 2 0RF Rx Instructions: for 4 weeks HPI General Date/Time Provider Initiated Documentation: 09/20/24 04:57 . HPI Narrative: 44-year-old male with a past medical history of familial edematous polyposis and subsequent colectomy with reanastomosis and no current ostomy, regular CPAP use, hypogonadism, Sharla's thyroiditis with subsequent hypothyroidism, who presents today for evaluation of abdominal pain. Patient states that he was recently started on tirzepatide/Zepbound and had his first injection on Saturday which was 48 hours ago. Since then he has had abdominal pain every time he tries to eat, multiple episodes of vomiting, and profuse watery diarrhea. He denies any blood in his stool or vomitus. Abdominal pain is generalized and crampy in nature. He denies any fever or chills. He denies any chest pain. He states that this feels quite different than his previous obstructions. No other complaints at this time. Related Data Home Medications ?Medication ?Instructions ?Recorded ?Confirmed syringe with needle, safety 3 mL #24 ea 08/07/23 09/20/24 22 gauge x 1 (Easy Touch SheathLock Syringe with Needle) metoprolol succinate 50 mg 50 mg PO DAILY PRN rapid heart 09/12/23 09/20/24 tablet,extended release 24 hr beat #10 tabs levothyroxine 112 mcg capsule 112 mcg PO DAILY #90 caps 09/18/23 09/20/24 albuterol sulfate 90 mcg/actuation 2 puff inhalation Q6H PRN 02/19/24 09/20/24 aerosol inhaler shortness of breath or wheezing #8.5 grams testosterone cypionate 200 mg/mL 100 mg (0.5 mL) IM QWEEK #10 mL 05/14/24 09/20/24 intramuscular oil (Depo-Testosterone) tirzepatide 2.5 mg/0.5 mL 2.5 mg (0.5 mL) subcut QWEEK #2 mL 07/16/24 09/20/24 subcutaneous pen injector tirzepatide (weight loss) 2.5 2.5 mg (0.5 mL) subcut QWEEK 09/08/24 09/20/24 mg/0.5 mL subcutaneous pen Obesity #2 mL injector (Zepbound) Previous Rx's ?Medication ?Instructions ?Recorded syringe with needle, safety 3 mL #24 ea 08/07/23 22 gauge x 1 (Easy Touch SheathLock Syringe with Needle) metoprolol succinate 50 mg 50 mg PO DAILY PRN rapid heart 09/12/23 tablet,extended release 24 hr beat #10 tabs levothyroxine 112 mcg capsule 112 mcg PO DAILY #90 caps 09/18/23 albuterol sulfate 90 mcg/actuation 2 puff inhalation Q6H PRN 02/19/24 aerosol inhaler shortness of breath or wheezing #8.5 grams testosterone cypionate 200 mg/mL 100 mg (0.5 mL) IM QWEEK #10 mL 05/14/24 intramuscular oil (Depo-Testosterone) tirzepatide 2.5 mg/0.5 mL 2.5 mg (0.5 mL) subcut QWEEK #2 mL 07/16/24 subcutaneous pen injector tirzepatide (weight loss) 2.5 2.5 mg (0.5 mL) subcut QWEEK 09/08/24 mg/0.5 mL subcutaneous pen Obesity #2 mL injector ([employer]) Allergies Allergy/AdvReac Type Severity Reaction Status Date / Time doxycycline AdvReac Intermediate heartburn Verified 09/20/24 04:50 General Stated Complaint: Abd Prob JANELL: 3 Exam Narrative Exam Narrative: 1.Const: Well-nourished, Well-developed, appearing stated age 2.Eyes: PERRL, no conjunctival injection, and symmetrical lids. 3.ENT: Atraumatic external nose and ears. Dry MM. Neck: Symmetric, trachea midline, No thyromegaly. 4.CVS: +S1/S2, Peripheral pulses 2+ and equal in all extremities. Brisk capillary refill in all extremities. 5.RESP: Unlabored respiratory effort. Clear to auscultation bilaterally. No wheezes rales or rhonchi 6.GI: Mildly distended, no guarding or rebound. Mild achiness and tenderness in the epigastric region. No focal pain at McBurney's point. Negative Gray sign. 7.MSK: Normocephalic/Atraumatic, Extremities w/o deformity or ttp No cyanosis or clubbing, Normal movement of all extremities 8.Skin: Warm, Dry. No rashes or lesions. 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 Sensation grossly intact, no focal neurologic deficits. 10.Psych: (AAO) x3. Appropriate mood and affect Course Vital Signs Vital signs: Vital Signs Temperature 35.7 C L 09/20/24 04:46 Pulse 133 H 09/20/24 04:46 Respiratory Rate 18 09/20/24 04:46 Blood Pressure 113/94 H 09/20/24 04:46 Pulse Oximetry 97 09/20/24 04:46 Temperature 35.7 C L 09/20/24 04:46 Temperature Source Skin 09/20/24 04:46 Pulse 133 H 09/20/24 04:46 Respiratory Rate 18 09/20/24 04:46 Blood Pressure 113/94 H 09/20/24 04:46 Blood Pressure Position Sitting 09/20/24 04:46 Pulse Oximetry 97 09/20/24 04:46 Oxygen Delivery Method Room Air 09/20/24 04:46 Oxygen Flow Rate 0 09/20/24 04:46 Medical Decision Making 44-year-old male with a past medical history of familial edematous polyposis and subsequent colectomy with reanastomosis and no current ostomy, regular CPAP use, hypogonadism, Sharla's thyroiditis with subsequent hypothyroidism, who presents today for evaluation of abdominal pain. Patient states that he was recently started on tirzepatide/Zepbound and had his first injection on Saturday which was 48 hours ago. Since then he has had abdominal pain every time he tries to eat, multiple episodes of vomiting, and profuse watery diarrhea. He denies any blood in his stool or vomitus. Abdominal pain is generalized and crampy in nature. He denies any fever or chills. He denies any chest pain. He states that this feels quite different than his previous obstructions. No other complaints at this time. Exam demonstrates dry mucous membranes, mild tachycardia, no hypotension. Afebrile. Mild epigastric abdominal tenderness, as well as abdominal bloating and reduced bowel sounds, although bowel sounds are present. Differential includes obstruction, gastroenteritis, less likely pancreatitis. Will rehydrate, give IV NSAID therapy for pain management, will get a CT scan of the abdomen, monitor closely and reassess. 7 AM Laboratory workup demonstrates white count of 19, hemoglobin of 19.7 suggesting hemoconcentration, electrolytes normal, lipase normal. On reassessment the patient's pain has resolved, however he is still quite bloated. CT scan shows evidence of dilated fluid-filled small bowel loops concerning for early obstruction versus ileus, inflammatory component on differential per radiology however the patient does not have a history of inflammatory bowel disease. With the evidence of the SBO, and notable dehydration I do feel that admission for continued fluids and monitoring is indicated especially considering the uncertainty of the longevity of symptoms with his tirzepatide. Additionally the patient states that he has often had significant resolution of his SBO's in the past with administration of Valium. We will give a small dose trial for this. 7:15 AM Discussed the case with the hospitalist Dr. Snyder, he agrees with the assessment and plan. I have extensively reviewed the treatment plan with the patient. I have addressed all patient concerns at this time. I have also discussed the plan with the admitting physician and they agree with the current assessment and plan and have agreed to assume responsibility for the patient. All parties demonstrate verbal understanding and agreement with our assessment and plan at this time. The documentation in this chart was dictated using [employer] dictation software. Please excuse any dictation errors. FINDINGS: Limitations: Mild motion artifact. Heart: Trace pericardial fluid. Liver: No focal hepatic lesion identified. Gallbladder and biliary ducts: No radiodense gallbladder calculi seen. Pancreas: No CT evidence for acute pancreatitis. Spleen: Spleen mildly elongated to 13 cm in anterior-posterior dimension. Adrenal glands: Indeterminate left adrenal nodule. Consider follow-up. Kidneys and ureters: No hydronephrosis or evidence for pyelonephritis. Stomach and bowel: Status post colectomy. Gas and fluid distension of multiple small bowel loops, alternating with collapsed segments. Some small bowel loops are dilated by size criteria. There is fluid distension of the distal small bowel. Appendix: No evidence of appendicitis. Intraperitoneal space: No free air Vasculature: No abdominal aortic aneurysm. Lymph nodes: Nonspecific mesenteric lymph nodes. Urinary bladder: No acute findings. Reproductive: No acute findings. Bones/joints: No pertinent acute abnormality seen. Soft tissues: Small fat containing umbilical hernia. Sebaceous cyst incidentally noted in the left flank. IMPRESSION: 1. Dilated fluid-filled small bowel loops alternating with collapsed segments with multiple areas of narrowing. Differential considerations include obstruction (likely early/partial), ileus, inflammation. Correlate clinically for history of Crohn's disease. Follow-up as clinically warranted. 2. Additional findings as above. Thank you for allowing us to participate in the care of your patient. Dictated and Authenticated by: Shama Brown MD 09/20/2024 6:27 AM Eastern Time ([place] & [place]) Quality:SDOH Health Related Social Needs: Health related social needs details none PFSH All Active Problems (Updated 09/20/24 @ 07:01 by Won Staples DO) Small bowel obstruction (Acute) Tachycardia (Acute) Hypogonadism in male (Acute) Hypothyroidism (Chronic) Abdominal pain (Acute) Bronchospasm (Acute) Right inguinal pain (Acute) Bilateral inguinal hernia (Acute) Low testosterone in male (Acute) Sleep apnea (Acute) CPAP (continuous positive airway pressure) dependence (Acute) Tubular adenoma (Acute ~07/2020) on EGD, repeat 6 months Palpitations (Acute) SVT (supraventricular tachycardia) (Chronic) Familial polyposis of colon (Acute) family hx-has routine proctoscopies with Dr. 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 states it wasn't chest pain but acid reflux Medical History (Updated 09/20/24 @ 07:01 by Won Staples DO) Sleep apnea Familial polyposis Surgical History (Updated 01/08/24 @ 13:15 by Bianca Celestin) History of esophagogastroduodenoscopy (EGD) (~2023) H/O colectomy (~2002) Per Dr Fulton's office note dated 04/13/13 patient was 10 years s/p total abdominal colectomy proctectomy with ileoanal anastamosis for a FAP. PROCTOSCOPY (~12/2023) 05/03/14, 2020 Anoscopy (03/2021) 2021. acute and chronic inflammation. with biopsy - flat, low grade dysplasia Family History Mother , age 60 Colon cancer Father Hyperlipidemia Sister Cancer ?thyroid cancer Maternal Grandfather , age 80 No problems noted. Paternal Grandfather , age 50 No problems noted. Maternal Grandmother No problems noted. Paternal Grandmother , age 80 No problems noted. Social History Smoking/Tobacco Use Status: Never Tobacco: How many years used: 0 Second Hand Exposure: No Smoking risk assessment performed?: Yes Alcohol Intake: current Alcohol Intake frequency: a few times a month Alcohol type: beer Drug use: Never Substance use type: does not use Caregiver/Support person: No Household members: spouse, family and children Housing: house Communication Needs: None Do you need help understanding health information?: Never Pets and animals: Yes Pets and animals: cat(s) and dog(s) Sexually active: Yes Do you think of yourself as: straight/heterosexual Current gender identity: male What is your relationship status?: How often do you talk on the phone with friends or family?: three or more times per week How often do you get together with friends or relatives?: once per week How often do you attend druze or hoahaoism services?: decline to answer Do you belong to any clubs or organized social groups?: no Panel score (0-1 are the most socially isolated patients): 2 What type of physical activity do you participate in: none Duration: < 15 minutes/day Frequency: 1-2 times per week Alivia/Oriental Orthodox: No preference Special alivia needs: No Seatbelt use: always Helmet use: Yes Helmet use: always Drive intox or ride w/intox bulk delivery driver: No Do you feel safe at home: Yes Do you feel safe in your relationship?: Yes Victim of physical abuse: No Victim of emotional abuse: No Would you like helpful sources: No
[2024-09-20 05:21] LABS: Absolute Neutrophil Count 17.24 10^3/uL (1.2-6.7)
[2024-09-20 05:22] LABS: HCT 58.9 % (40.0-50.0); HGB 19.7 g/dL (13.5-17.5)
[2024-09-20 05:31] LABS: ALT 53 U/L (16-63); AST 39 U/L (15-37); Albumin 4.5 g/dL (3.4-5.0); Alkaline Phosphatase 128 U/L (46-116); Anion Gap 10.1 mmol/L (3-11); BUN 17 mg/dL (7-18); Bilirubin, Total 1.2 mg/dL (0.2-1.0); CO2 23.9 mmol/L (21.0-32.0); CREATININE 1.3 mg/dL (0.70-1.30); Calcium 9.9 mg/dL (8.5-10.1); Chloride 102 mmol/L (98-107); Estimated GFR 70.34 (mL/min/1.73m2); Glucose 133 mg/dL (74-106); Lipase 34 U/L (<78); Potassium 4.6 mmol/L (3.5-5.1); Sodium 136 mmol/L (136-145); Total Protein 9.4 g/dL (6.4-8.2)
[2024-09-20] MEDS: Omnipaque 350 MG/ML 100 ML BTL IJ (06:16)
[2024-09-20] MEDS: Normal Saline - Diluent 50 ML VIAL IJ (06:16)
--- NOTE | 2024-09-20 06:17 | DI.CT_ITS ---
Exam(s) CT ABDOMEN PELVIS W EXAM: CT ABDOMEN PELVIS W CLINICAL HISTORY: Gen. abd pain with NVD, hx colectomy. TECHNIQUE: Imaging Protocol: Axial computed tomography images with coronal and sagittal reformatted images were created and reviewed CONTRAST MATERIAL: Intravenous: Omnipaque-350 100cc Oral: None COMPARISON: CT CT ABDOMEN PELVIS W from 07/24/2022 FINDINGS: VISUALIZED LUNG BASES: No nodules nor pleural effusions evident. Small pericardial effusion again no lazara. ABDOMEN: GI: Again noted is evidence of prior colectomy presacral anastomosis to the rectum. Appearance of th e distal anastomosis is stable but there are dilated mid and distal level small bowel loops measuring up to 4.3 cm diameter (central pel vis). No free air and no ascites evident. No obvious mesenteric swirl sign. LIVER: There are no focal hepatic lesions evident. No dilated intrahepatic ducts. GALLBLADDER/BILIARY: No obvious gallbladder pathology. CBD is not dilated. PANCREAS: No evidence of pancreatic mass nor dilatation of the pancreatic duct. SPLEEN: Spleen is not enlarged. No obvious intrasplenic lesions. Splenic and portal veins are paten t. ADRENALS: The previously described in abnormal nodule in left adrenal gland is again seen, measuring 2.4 by 1.7 cm, slightly larger than previous.. Smaller right adrenal nodule appears unchanged. KIDNEYS:No significant cysts. No solid renal masses. No calculi nor hydronephrosis.. ABDOMINAL AORTA: Abdominal aorta is not enlarged. Also no aneurysmal dilatation of the iliac arterie s. Some streaking is are again noted anteriorly just below the aortic bifurcation. There is no drai nable fluid collection at this level nor elsewhere in the abdomen. LYMPH NODES:There is no retroperitoneal nor paraaortic adenopathy. ABDOMINAL WALL: No evidence of significant anterior abdominal wall nor inguinal hernia. PELVIS: GI: Appendix surgically absent/colectomy. LYMPH NODES: There is no intrapelvic nor inguinal adenopathy. REPRODUCTIVE: Prostate mildly enlarged. URINARY BLADDER: No calculi nor obvious masses evident OSSEOUS: No fractures and no significant osseous lesions. Sacroiliac joints appear unremarkable. Incidentally noted is a limbus vertebra of the anterosuperior aspect of L3 vertebral body, unchanged. Mild scoliosis in the lumbar spine noted, convex left. IMPRESSION: 1. Compared to the prior CT scan of 07/24/2022 there is again noted evidence of prior colectomy and e vidence of partial small bowel obstruction, most probably related to adhesions. Streaking in the mes entery just below the aortic bifurcation is again noted, unchanged. There is no drainable fluid jaron ection. 2. There is a 2.4 x 1.7 cm left adrenal nodule which has slightly increased in size from prior CT sca n of 07/24/2022. Recommend follow-up MRI with adrenal protocol in and out of phase imaging for added specificity. 3. Other findings as above. RADIATION DOSE DELIVERED: 1,085.94mGy.cm Total DLP DATA REPOSITORY: All CT scans at this facility are submitted to the National Radiology Data Registry (NRDR) Dose Index Registry (DIR) with the [employer] (ACR). RADIATION OPTIMIZATION: All CT scans at this facility use at least one of these dose optimization te chniques: automated exposure control; mA and/or kV adjustment per patient size (includes targeted exa ms where dose is matched to clinical indication); or iterative reconstruction.
--- NOTE | 2024-09-20 06:27 | DI.VRAD_ITS ---
PROCEDURE INFORMATION: Exam: CT Abdomen And Pelvis With Contrast Exam date and time: 09/20/2024 6:07 AM Age: 44 years old Clinical indication: Other: Gen. Abd pain with nvd, HX colectomy; Prior surgery; Surgery date: 6+ months TECHNIQUE: Imaging protocol: Computed tomography of the abdomen and pelvis with contrast. Contrast material: OMNIPAQUE 350; Contrast volume: 100 ml; Contrast route: INTRAVENOUS (IV); COMPARISON: CT ABDOMEN PELVIS W 07/24/2022 4:50 PM FINDINGS: Limitations: Mild motion artifact. Heart: Trace pericardial fluid. Liver: No focal hepatic lesion identified. Gallbladder and biliary ducts: No radiodense gallbladder calculi seen. Pancreas: No CT evidence for acute pancreatitis. Spleen: Spleen mildly elongated to 13 cm in anterior-posterior dimension. Adrenal glands: Indeterminate left adrenal nodule. Consider follow-up. Kidneys and ureters: No hydronephrosis or evidence for pyelonephritis. Stomach and bowel: Status post colectomy. Gas and fluid distension of multiple small bowel loops, alternating with collapsed segments. Some small bowel loops are dilated by size criteria. There is fluid distension of the distal small bowel. Appendix: No evidence of appendicitis. Intraperitoneal space: No free air. Vasculature: No abdominal aortic aneurysm. Lymph nodes: Nonspecific mesenteric lymph nodes. Urinary bladder: No acute findings. Reproductive: No acute findings. Bones/joints: No pertinent acute abnormality seen. Soft tissues: Small fat containing umbilical hernia. Sebaceous cyst incidentally noted in the left flank. IMPRESSION: 1. Dilated fluid-filled small bowel loops alternating with collapsed segments with multiple areas of narrowing. Differential considerations include obstruction (likely early/partial), ileus, inflammation. Correlate clinically for history of Crohn's disease. Follow-up as clinically warranted. 2. Additional findings as above. Dictated and Authenticated by: Shama Brown MD. Orderin Ble Upton MD
[2024-09-20] MEDS: diazePAM 10 MG/2 ML SYR 5 MG IVP (07:23)
--- NOTE | 2024-09-20 08:49 | W.PC.ACHO ---
Registration Status: Primary Language: Preferred Language: ED Information & Data Chief Complaint Abd Prob 09/20/24 05:21 Triage Note pt took zepbound. Pt doesnt 09/20/24 04:46 have a colon. Pt states he took this on saturday night. Abd pain. n/v/d. First time taking it. Medical / Surgical History (Last Reviewed 01/08/24 @ 11:41 by Agnes Latif RN) Sleep apnea Familial polyposis (Last Updated 01/08/24 @ 13:15 by Bianca Celestin) History of esophagogastroduodenoscopy (EGD) (~2023) H/O colectomy (~2002) PROCTOSCOPY (~12/2023) Anoscopy (03/2021) Most Recent Vital Signs Temperature 35.7 C L 09/20/24 04:46 Temperature Source Skin 09/20/24 04:46 Pulse 100 H 09/20/24 08:43 Pulse 99 H 09/20/24 08:43 Respiratory Rate 14 09/20/24 08:43 Respiratory Effort Normal, Non-Labored 09/20/24 06:51 Respiratory Depth Normal 09/20/24 06:51 Respiratory Pattern Normal 09/20/24 06:51 Blood Pressure 126/66 09/20/24 08:43 Blood Pressure Mean 88 09/20/24 08:43 Blood Pressure Position Sitting 09/20/24 06:51 Pulse Oximetry 97 09/20/24 08:43 Oxygen Delivery Method Room Air 09/20/24 06:51 Oxygen Flow Rate 0 09/20/24 06:51 Allergies doxycycline Adverse Reaction (Intermediate, Verified 09/20/24 04:50) heartburn Precautions Isolation Standard precaution 09/20/24 04:50 Active Medications Generic Name Dose Route Start Last Admin Trade Name Freq PRN Reason Stop Dose Admin Iohexol 100 ml 09/20/24 06:30 09/20/24 06:16 Omnipaque 350 Mg/Ml 100 Ml Btl IJ 10/20/24 23:59 100 ml DIRECTED ARIANA Administration Sodium Chloride 50 ml 09/20/24 06:15 09/20/24 06:16 Normal Saline - Diluent 50 Ml Vial IJ 50 ml .FOR DI USE ARIANA Administration IV IV Catheter Type [Right Saline Lock Antecubital] IV Catheter Gauge [Right 18 Antecubital] Diet Orders Category Date Time Status Nothing Per Oral [DIET] Nutrition 05/11/25 Breakfast Active Diagnostics 09/20/24 Range/Units 05:02 WBC 19.13 H (4.4-10.8) 10^3/uL RBC 6.96 H (4.36-5.78) 10^6/uL Hgb 19.7 H* (13.5-17.5) g/dL Hct 58.9 H* (40.0-50.0) % MCV 85 (80-95) fL MCH 28.3 (27.0-33.0) pg MCHC 33.4 (32.0-36.0) % RDW 15.3 H (11.8-14.1) % Plt Count 384 (130-400) 10^3/uL MPV 10.3 (8.0-11.0) fL Immature Gran % 0.3 % Neutrophils % 90.1 % Lymphocytes % 3.9 % Monocytes % 5.0 % Eosinophils % 0.4 % Basophils % 0.3 % Nucleated RBC % 0.0 (0.0-0.3) % Absolute Neutrophils 17.24 H (1.2-6.7) 10^3/uL Absolute Lymphocytes 0.75 L (1.2-3.4) 10^3/uL Absolute Monocytes 0.96 H (0.1-0.8) 10^3/uL Absolute Eosinophils 0.08 (0.0-0.7) 10^3/uL Absolute Basophils 0.06 (0.0-0.2) 10^3/uL VBG Lactate 1.2 (<or=2.0) mmol/L Sodium 136 (136-145) mmol/L Potassium 4.6 (3.5-5.1) mmol/L Chloride 102 (98-107) mmol/L Carbon Dioxide 23.9 (21.0-32.0) mmol/L Anion Gap 10.1 (3-11) mmol/L BUN 17 (7-18) mg/dL Creatinine 1.3 (0.70-1.30) mg/dL Est GFR (CKD-EPI 2020) 70.34 (mL/min/1.73m2) Glucose 133 H (74-106) mg/dL Calcium 9.9 (8.5-10.1) mg/dL Total Bilirubin 1.2 H (0.2-1.0) mg/dL AST 39 H (15-37) U/L ALT 53 (16-63) U/L Alkaline Phosphatase 128 H (46-116) U/L Total Protein 9.4 H (6.4-8.2) g/dL Albumin 4.5 (3.4-5.0) g/dL Lipase 34 (<78) U/L Path Cons Comment Pending Intake and Output - 24 Hour Total 09/20/24 04:44 thru 09/20/24 06:14 Intake Total 1100 Balance 1100 Weight 151.2 kg Intake: IV 1100 Falls Risk Assessment History of Falls No History 09/20/24 04:51 Contributing Factors No Factors 09/20/24 04:51 Ambulatory Aids Independent 09/20/24 04:51 Tubes/Lines None 09/20/24 04:51 Gait Evaluation No gait disturbance 09/20/24 04:51 Cognition No cognitive impairment 09/20/24 04:51 Fall Total Score 0 09/20/24 04:51 Level of Risk Standard/Low Risk 09/20/24 04:51 v v v v v v v v v Sending and/or Receiving Nurses: Please use comment section below to note any information pertinent to the patient hand-off not included above. Information / Comments: Report received from: report called at [phone], spoke with Penelope PATTERSON, notified that patient does not want to stay and may be discharged, will wait to hear more later
--- NOTE | 2024-09-20 08:57 | W.EDPROG ---
Date of service: 09/20/24 Time of Service: 08:57 Medical Decision Making Patient was initially accepted by Dr. Gilman from the hospitalist team in the setting of his partial small bowel obstruction. He passed a bowel movement in the emergency department and felt markedly improved and requested discharge. He had a soft nontender abdomen on reassessment. He was still tachycardic. Will complete a p.o. trial provide patient with a second liter of IV fluids. 9:30 AM Patient felt improved. He passed a p.o. trial. He had resolution of his tachycardia. We discussed at length that he is return to the emergency department if you develop nausea vomiting abdominal pain or had any other concerns. He understood his return indications. I advised PCP follow-up. I ordered him a short course of as needed ondansetron. He was discharged with empiric trial of expectant outpatient management. Quality:SDOH Health Related Social Needs: Health related social needs details none Discharge Plan Disposition Patient Disposition: Home Condition: Improving Discharge Details Clinical Impression: Nausea & vomiting Primary Care Provider: Darian Torrez ED Provider: Samy Caballero Home Meds and New Rx's Prescriptions: Continued (DME) syringe with needle, safety [Easy Touch SheathLock Syrg-Ndl] 3 mL 22 gauge x 1 syringe See Rx Instructions .ROUTE .MEDSUPPLY Qty: 24 1RF Rx Instructions: inject every 1 week metoprolol succinate 50 mg tablet extended release 24 hr 50 mg PO DAILY MDD 50 PRN (Reason: rapid heart beat) Qty: 10 3RF tirzepatide 2.5 mg/0.5 mL pen injector 2.5 mg subcut QWEEK Qty: 2 0RF Rx Instructions: for 4 weeks levothyroxine 112 mcg capsule 112 mcg PO DAILY Qty: 90 3RF albuterol sulfate 90 mcg/actuation HFA aerosol inhaler 2 puff inhalation Q6H PRN (Reason: shortness of breath or wheezing) Qty: 8.5 0RF testosterone cypionate [Depo-Testosterone] 200 mg/mL oil 100 mg IM QWEEK Qty: 10 5RF Zepbound 2.5 mg/0.5 mL pen injector 2.5 mg subcut QWEEK Qty: 2 0RF Rx Instructions: for 4 weeks Discharge Instructions Instructions: Nausea and vomiting in adults Additional Instructions: You are seen in the emergency department for your nausea and vomiting. Your CAT scan showed concern for the possibility of an early blockage of your intestines. He felt improved. As we discussed if you develop nausea or vomiting that does not stop you develop any fevers or if you have any other concerns please return immediately to the emergency department. Please take this nausea medication as directed. Please follow-up with your primary care provider as needed next week. For your pain please take medications as follows: 1. Take acetaminophen (Tylenol), 1,000 mg (two 500 mg tabs) every 6 hours
[2024-09-20] MEDS: Normal Saline 1,000 ML 1000 ML IV (09:07)
[2024-09-20] MEDS: Ondansetron O.D.T. 4 MG TABEF, 3 TABS/BTL PO (09:37)
== END 2024-09-20 09:43 | disposition home or self-care (01) ==
PROVIDERS: Student in an Organized Health Care Education/Training Program; Emergency Provider Emergency Medicine; PCP Family Medicine
DX: R10.30 Lower abdominal pain, unspecified; R19.7 Diarrhea, unspecified; K56.609 Unspecified intestinal obstruction, unspecified as to partial versus complete obstruction; R11.2 Nausea with vomiting, unspecified
CPT/HCPCS: 99284; 99285; 96375; 00123; 80053; 83690; 96365; 74177; 83605; 85025; J0131; J1885; J2405; J3360; J3490

== ENCOUNTER 2024-09-24 02:17 | Observation (INO) | payer BC, SELFPAY ==
[2024-09-24] VITALS (14 sets, daily range): BP systolic 113–142; BP diastolic 71–92; PULSE 80–103; RESP 14–20; TEMP 34.6–36.9; O2SAT 92–98
--- NOTE | 2024-09-24 03:00 | DI.RAD_ITS ---
Exam(s) XR ABDOMEN FLAT UPRIGHT EXAM: 2D digital imaging was performed. CLINICAL HISTORY: ABD PAIN/VOMITING. COMPARISON: CT CT ABDOMEN PELVIS W from 09/20/2024 TECHNIQUE: Supine and upright views of the abdomen was performed. Four images were obtained. FINDINGS: LUNG BASES: Clear. BOWEL GAS PATTERN: Mildly prominent small bowel loops are seen in the lower in right abdomen. There has been interval decrease in the size of the small bowel loops compared to 09/20/2024. There is air seen in the rectum. The findings likely reflect an ileus. Small bowel obstruction is considered les s likely. FREE AIR: None. CALCIFICATIONS: No radiopaque calcifications. OSSEOUS STRUCTURES: Normal for age. OTHER FINDINGS: None. IMPRESSION: 1. Probable ileus. Small bowel obstruction is considered less likely but cannot be entirely excluded . Follow-up as clinically appropriate. 2. The preliminary [facility] report was reviewed. DATA REPOSITORY: RADIATION DOSE DELIVERED:
[2024-09-24] MEDS: diazePAM 10 MG/2 ML SYR 5 MG IVP ×3 (03:20→14:48)
[2024-09-24] MEDS: Ondansetron 4 MG/2 ML VIAL IVP (03:20)
[2024-09-24] MEDS: Normal Saline 1,000 ML 1000 ML IV (03:20)
--- NOTE | 2024-09-24 04:30 | W.ED.GENAD ---
Discharge Plan Disposition Patient Disposition: Admit to [facility] Condition: Fair Discharge Details Clinical Impression: Abdominal pain, Nausea & vomiting, Dehydration Primary Care Provider: Darian Torrez ED Provider: Edgar Waters Home Meds and New Rx's Prescriptions: No Action (DME) syringe with needle, safety [Easy Touch SheathLock Syrg-Ndl] 3 mL 22 gauge x 1 syringe See Rx Instructions .ROUTE .MEDSUPPLY Qty: 24 1RF Rx Instructions: inject every 1 week metoprolol succinate 50 mg tablet extended release 24 hr 50 mg PO DAILY MDD 50 PRN (Reason: rapid heart beat) Qty: 10 3RF levothyroxine 112 mcg capsule 112 mcg PO DAILY Qty: 90 3RF albuterol sulfate 90 mcg/actuation HFA aerosol inhaler 2 puff inhalation Q6H PRN (Reason: shortness of breath or wheezing) Qty: 8.5 0RF testosterone cypionate [Depo-Testosterone] 200 mg/mL oil 100 mg IM QWEEK Qty: 10 5RF HPI General Mode of arrival: ambulatory. Date/Time Provider Initiated Documentation: 09/24/24 04:30. Limitations to Documentation: no limitations. Information obtained by: patient, RN notes reviewed and old records reviewed. HPI Narrative: Patient returns to ED with abdominal pain and vomiting. Patient was seen Saturday morning for same. He had a CT scan which showed probable partial small bowel obstruction. He was offered admission at that time but given that he has had this problem on and off over the last 20 years since he had a colectomy he declined and tried to manage at home. Said he was doing okay until last evening. Point he has had decreased flatus and no passage of stool. He has had increasing abdominal pain and distention. He began vomiting early this morning and came to ED. He has had no fever. Denies any chest pain or shortness of breath. Of note he was started on Zepbound last Saturday and began having symptoms after this. Related Data Home Medications ?Medication ?Instructions ?Recorded ?Confirmed syringe with needle, safety 3 mL #24 ea 08/07/23 09/20/24 22 gauge x 1 (Easy Touch SheathLock Syringe with Needle) metoprolol succinate 50 mg 50 mg PO DAILY PRN rapid heart 09/12/23 09/20/24 tablet,extended release 24 hr beat #10 tabs levothyroxine 112 mcg capsule 112 mcg PO DAILY #90 caps 09/18/23 09/20/24 albuterol sulfate 90 mcg/actuation 2 puff inhalation Q6H PRN 02/19/24 09/20/24 aerosol inhaler shortness of breath or wheezing #8.5 grams testosterone cypionate 200 mg/mL 100 mg (0.5 mL) IM QWEEK #10 mL 05/14/24 09/20/24 intramuscular oil (Depo-Testosterone) Previous Rx's ?Medication ?Instructions ?Recorded syringe with needle, safety 3 mL #24 ea 08/07/23 22 gauge x 1 (Easy Touch SheathLock Syringe with Needle) metoprolol succinate 50 mg 50 mg PO DAILY PRN rapid heart 09/12/23 tablet,extended release 24 hr beat #10 tabs levothyroxine 112 mcg capsule 112 mcg PO DAILY #90 caps 09/18/23 albuterol sulfate 90 mcg/actuation 2 puff inhalation Q6H PRN 02/19/24 aerosol inhaler shortness of breath or wheezing #8.5 grams testosterone cypionate 200 mg/mL 100 mg (0.5 mL) IM QWEEK #10 mL 05/14/24 intramuscular oil (Depo-Testosterone) Allergies Allergy/AdvReac Type Severity Reaction Status Date / Time doxycycline AdvReac Intermediate heartburn Verified 09/20/24 04:50 tirzepatide (From Zepbound) AdvReac Intermediate Nausea Verified 09/21/24 09:32 General JANELL: 3 Exam Narrative Exam Narrative: Const: Obese male in NAD. VS per triage. HEENT: NC/AT. Normal facial exam. Neck: Supple. Trachea midline. Lungs: Normal respiratory effort. Lungs are clear. Cor: RRR without murmur. Good radial pulses. GI: Soft, somewhat distended, not tender. Neuro: A+O x 3. Normal speech, mentation, gait. Cranial nerves II - XII grossly intact. No gross motor or sensory deficit. Ext: No C/C/E. Medical Decision Making Patient presenting to ED with recurrent vomiting and abdominal pain. Seen here on Saturday with CT that suggested partial small bowel obstruction which has not a new problem for this gentleman. Typically gets better with Zofran and Valium and clear liquids. Declined admission on Saturday and was doing okay at home until last evening. Returns with increasing pain, vomiting, diminished flatus and distended abdomen. I do not think we need to repeat CT at this point. IV established and laboratory studies obtained. Abdominal x-rays ordered. Fluids, Zofran, Valium given. Patient's abdominal x-ray per my read with dilated and air-filled small bowel mostly in the right side with a few air-fluid levels consistent with presentation. He is, however, feeling better and actually was able to pass some stool and flatus after receiving fluids and Valium. Laboratory studies show that his white count has come down from Saturday but that his hemoglobin is still suggesting pretty significant hemoconcentration. Kidney function is also up slightly. This is all consistent with dehydration. Electrolytes are otherwise unremarkable. Patient is agreeable to remaining in hospital at this time for fluid resuscitation and observation for improvement. Case is discussed with hospitalist as well as with surgery. Patient will be admitted to hospitalist service with surgery consulting. Patient continued on LR at 125 an hour after receiving a liter of normal saline. Admitted in stable condition. Medical Records Medical records reviewed: Yes I reviewed the patient's medical records. Imaging Data Radiologic Study: Attestation: I personally reviewed and interpreted this imaging study as follows: Imaging: X-Ray My impression: see [facility] Lab Data Lab results reviewed: Yes I reviewed the patient's lab results. Lab results narrative: see [facility] All Active Problems (Updated 09/24/24 @ 05:34 by Edgar Waters MD) Dehydration (Acute) Nausea & vomiting (Acute) Abdominal pain (Acute) CPAP (continuous positive airway pressure) dependence (Acute) Tubular adenoma (Acute ~07/2020) on EGD, repeat 6 months SVT (supraventricular tachycardia) (Chronic) Familial polyposis of colon (Acute) family hx-has routine proctoscopies with Dr. 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 PROCTOSCOPY (~12/2023) 05/03/14, 2019 Anoscopy (03/2021) 2021. acute and chronic inflammation. with biopsy - flat, low grade dysplasia Family History Mother , age 60 Colon cancer Father Hyperlipidemia Sister Cancer ?thyroid cancer Maternal Grandfather , age 80 No problems noted. Paternal Grandfather , age 50 No problems noted. Maternal Grandmother No problems noted. Paternal Grandmother , age 80 No problems noted. Social History Smoking/Tobacco Use Status: Never Tobacco: How many years used: 0 Second Hand Exposure: No Smoking risk assessment performed?: Yes Alcohol Intake: current Alcohol Intake frequency: a few times a month Alcohol type: beer Drug use: Never Substance use type: does not use Caregiver/Support person: No Household members: spouse, family and children Housing: house Communication Needs: None Do you need help understanding health information?: Never Pets and animals: Yes Pets and animals: cat(s) and dog(s) Sexually active: Yes Do you think of yourself as: straight/heterosexual Current gender identity: male What is your relationship status?: How often do you talk on the phone with friends or family?: three or more times per week How often do you get together with friends or relatives?: once per week How often do you attend sabianist or religion services?: decline to answer Do you belong to any clubs or organized social groups?: no Panel score (0-1 are the most socially isolated patients): 2 What type of physical activity do you participate in: none Duration: < 15 minutes/day Frequency: 1-2 times per week Alivia/Zoroastrian: No preference Special alivia needs: No Seatbelt use: always Helmet use: Yes Helmet use: always Drive intox or ride w/intox form setter/driver: No Do you feel safe at home: Yes Do you feel safe in your relationship?: Yes Victim of physical abuse: No Victim of emotional abuse: No Would you like helpful sources: No
[2024-09-24] MEDS: Lactated Ringers 1,000 ML 125 ML IV ×2 (04:45→14:15)
[2024-09-24 05:01] LABS: Abs Immature Grans 0.03 10^3/uL (0.0-0.06); Absolute Basophil Count 0.06 10^3/uL (0.0-0.2); Absolute Eosinophil Count 0.32 10^3/uL (0.0-0.7); Absolute Monocyte Count 1.21 10^3/uL (0.1-0.8); Absolute Neutrophil Count 9.08 10^3/uL (1.2-6.7); Basophils % 0.5 %; Eosinophils % 2.6 %; Immature Grans % 0.2 %; Lymphocytes % 12.7 %; MCH 28.8 pg (27.0-33.0); MCHC 34.5 % (32.0-36.0); MCV 84 fL (80-95); MPV 10.3 fL (8.0-11.0); Monocytes % 9.9 %; Neutrophils % 74.1 %; Platelet Count 387 10^3/uL (130-400); RBC 6.83 10^6/uL (4.36-5.78); RDW 14.9 % (11.8-14.1); RDW-SD 41.7 fL; WBC 12.25 10^3/uL (4.4-10.8)
[2024-09-24 05:03] LABS: Absolute Lymphocyte Count 1.55 10^3/uL (1.2-3.4)
[2024-09-24 05:04] LABS: ALT 63 U/L (16-63); AST 45 U/L (15-37); Albumin 4.3 g/dL (3.4-5.0); Alkaline Phosphatase 130 U/L (46-116); Anion Gap 10.3 mmol/L (3-11); BUN 19 mg/dL (7-18); CO2 24.7 mmol/L (21.0-32.0); CREATININE 1.4 mg/dL (0.70-1.30); Calcium 9.3 mg/dL (8.5-10.1); Chloride 100 mmol/L (98-107); Estimated GFR 64.36 (mL/min/1.73m2); Glucose 102 mg/dL (74-106); Lipase 58 U/L (<78); Magnesium 2.3 mg/dL (1.8-2.4); Potassium 4.2 mmol/L (3.5-5.1); Sodium 135 mmol/L (136-145); Total Protein 8.9 g/dL (6.4-8.2)
[2024-09-24 05:05] LABS: HCT 57.1 % (40.0-50.0); HGB 19.7 g/dL (13.5-17.5)
--- NOTE | 2024-09-24 06:03 | HPE_ITS ---
Date of service: 09/24/24 Time of Service: 06:03 Assessment and Plan Assessment and plan (1) Abdominal pain: Status: Acute Assessment and plan: Recurrent small bowel obstruction in this man who had a total colectomy in 2002. He is admitted to observation status, ER hold. Will provide diazepam 5 mg IV push every 6 hours until his abdominal pain and distention improved. He is not currently at all hungry. Will give IV fluids 125 cc an hour and maintain n.p.o. for now. (2) CPAP (continuous positive airway pressure) dependence: Status: Acute Assessment and plan: He wears a CPAP at night. Will ask family to bring in his CPAP machine for use overnight. (3) Familial polyposis of colon: Status: Acute Assessment and plan: Status post prophylactic total colectomy 2002. He does get l procotoscopy for surveillance periodically. History of Present Illness History of Present Illness Chief Complaint: Small bowel obstruction Narrative: 44-year-old man with a history of familial polyposis, status post total colectomy 2002 at [facility]. He has frequent bouts of small bowel obstruction relieved only by IV diazepam. He presented early this morning with abdominal pain and distention. He was just seen for this on 09/20/2024. An abdominal CT at that time demonstrated dilated loops of small bowel consistent with a small bowel obstruction. After getting IV diazepam he was able to relieve himself and opted not to get admitted. Of note he started Zepbound on 09/18/2024. He received 1 IM injection and was having diarrhea following that. He has no appetite. He does not plan on continuing on that medication. Review of Systems Narrative: He has moderate abdominal pain, it actually feels better when he is lying on his right side. He has had 3 liquid bowel movements since coming to the emergency room. He still feels some distention. Denies any chest pain, no shortness of breath, no other GI or symptoms. He does not get lower extremity swelling. He has not had any neurologic symptoms. PFSH All Active Problems (Updated 09/24/24 @ 05:34 by Edgar Waters MD) Dehydration (Acute) Nausea & vomiting (Acute) Abdominal pain (Acute) CPAP (continuous positive airway pressure) dependence (Acute) Tubular adenoma (Acute ~07/2020) on EGD, repeat 6 months SVT (supraventricular tachycardia) (Chronic) Familial polyposis of colon (Acute) family hx-has routine proctoscopies with Dr. 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 PROCTOSCOPY (~12/2023) 05/03/14, 2020 Anoscopy (03/2021) 2021. acute and chronic inflammation. with biopsy - flat, low grade dysplasia Family History Mother , age 60 Colon cancer Father Hyperlipidemia Sister Cancer ?thyroid cancer Maternal Grandfather , age 80 No problems noted. Paternal Grandfather , age 50 No problems noted. Maternal Grandmother No problems noted. Paternal Grandmother , age 80 No problems noted. Social History Smoking/Tobacco Use Status: Never Tobacco: How many years used: 0 Second Hand Exposure: No Smoking risk assessment performed?: Yes Alcohol Intake: current Alcohol Intake frequency: a few times a month Alcohol type: beer Drug use: Never Substance use type: does not use Caregiver/Support person: No Household members: spouse, family and children Housing: house Communication Needs: None Do you need help understanding health information?: Never Pets and animals: Yes Pets and animals: cat(s) and dog(s) Sexually active: Yes Do you think of yourself as: straight/heterosexual Current gender identity: male What is your relationship status?: How often do you talk on the phone with friends or family?: three or more times per week How often do you get together with friends or relatives?: once per week How often do you attend lutheran or anabaptist services?: decline to answer Do you belong to any clubs or organized social groups?: no Panel score (0-1 are the most socially isolated patients): 2 What type of physical activity do you participate in: none Duration: < 15 minutes/day Frequency: 1-2 times per week Alivia/Christian: No preference Special alivia needs: No Seatbelt use: always Helmet use: Yes Helmet use: always Drive intox or ride w/intox driver's education instructor: No Do you feel safe at home: Yes Do you feel safe in your relationship?: Yes Victim of physical abuse: No Victim of emotional abuse: No Would you like helpful sources: No Meds Allergies and Home Medications Allergies Allergy/AdvReac Type Severity Reaction Status Date / Time doxycycline AdvReac Intermediate heartburn Verified 09/20/24 04:50 tirzepatide (From Zepbound) AdvReac Intermediate Nausea Verified 09/21/24 09:32 Home Medications ?Medication ?Instructions ?Recorded ?Confirmed ?Type syringe with needle, safety 3 mL #24 ea 08/07/23 09/20/24 Rx 22 gauge x 1 (Easy Touch SheathLock Syringe with Needle) metoprolol succinate 50 mg 50 mg PO DAILY PRN rapid heart 09/12/23 09/20/24 Rx tablet,extended release 24 hr beat #10 tabs levothyroxine 112 mcg capsule 112 mcg PO DAILY #90 caps 09/18/23 09/20/24 Rx albuterol sulfate 90 mcg/actuation 2 puff inhalation Q6H PRN 02/19/24 09/20/24 Rx aerosol inhaler shortness of breath or wheezing #8.5 grams testosterone cypionate 200 mg/mL 100 mg (0.5 mL) IM QWEEK #10 mL 05/14/24 09/20/24 Rx intramuscular oil (Depo-Testosterone) Exam Narrative Exam Narrative: On exam he is a large moderately obese man with a shaved head. He has a somewhat depressed affect but is fully alert and coherent and gives a good history. His breathing sounded all labored his lungs sound clear on the right and left. Heart sounds are somewhat distant but sound regular no significant murmur. His abdomen is markedly obese and overall relatively soft and not at all tender to palpate. It does not appear tense or distended. There is no organomegaly. The lower extremities are well-perfused he has no edema. Neurologically there are no apparent focal deficits. Results Labs 09/24/24 02:56 09/24/24 02:56 Labs: Laboratory Results - last 24 hr 09/24/24 02:56 WBC 12.25 H RBC 6.83 H Hgb 19.7 H* Hct 57.1 H* MCV 84 MCH 28.8 MCHC 34.5 RDW 14.9 H Plt Count 387 MPV 10.3 Immature Gran % 0.2 Neutrophils % 74.1 Lymphocytes % 12.7 Monocytes % 9.9 Eosinophils % 2.6 Basophils % 0.5 Nucleated RBC % 0.0 Absolute Neutrophils 9.08 H Absolute Lymphocytes 1.55 Absolute Monocytes 1.21 H Absolute Eosinophils 0.32 Absolute Basophils 0.06 Sodium 135 L Potassium 4.2 Chloride 100 Carbon Dioxide 24.7 Anion Gap 10.3 BUN 19 H Creatinine 1.4 H Est GFR (CKD-EPI 2020) 64.36 Glucose 102 Calcium 9.3 Magnesium 2.3 Total Bilirubin 1.0 AST 45 H ALT 63 Alkaline Phosphatase 130 H Total Protein 8.9 H Albumin 4.3 Lipase 58 Last Vital Signs Temp 34.6 C L 09/24/24 05:21 Pulse 92 H 09/24/24 05:21 Resp 16 09/24/24 05:21 BP 132/92 H 09/24/24 05:21 Pulse Ox 96 09/24/24 05:21 Time Spent Time spent with Patient: 40-54 minutes Time was spent: preparing to see the patient(eg.review tests), obtaining and/or reviewing separately otained hiistory, ordering medications,tests, procedures and referring, communicating with other health continuum of care manager
--- NOTE | 2024-09-24 07:59 | W.SURGCON ---
Date of service: 09/24/24 Time of Service: 07:59 Assessment and Plan Assessment and plan (1) Small bowel obstruction: Status: Resolved Assessment and plan: 44-year-old man with recurrent small bowel, usually?partial, obstructions. It would seem this one has resolved on its own as well. He certainly has no abdominal distention and has a benign abdominal exam. He is morbidly obese with a BMI of 46. Surgical intervention needs to be embarked upon very cautiously considering his surgical history. Because of the history of a J-pouch, consideration for any surgical intervention should be defer to [facility] colorectal surgery. At this time, he is somewhat dehydrated but his obstruction picture seems to have resolved clinically. He can be admitted to the hospitalist service for hydration and p.o. challenge. I do not think he needs any decompression and he certainly does not warrant surgical exploration. Once he is tolerating p.o. and his lab work has normalized, he can be discharged home. He doesn't need more imaging or any objective data as long as he feels back to baseline. Does not need follow-up with the surgery team after discharge. Surgery signing off at this time - call us back as needed History of Present Illness Narrative: Wilbert is a pleasant 44-year-old man who had a complete, total colectomy, done open, at [facility], about 22 or 23 years ago. This was done for FAP. He has a J-pouch and a short amount of rectum still remaining which gets annual surveillance. He is doing well since then and is very well?versed in his condition. He has had a few bowel obstructions over the years and thinks he has 1 about every 1 to 2 years. Most of them are partial and resolve with time alone. He knows what certain foods to avoid eating. He has had to have an NG tube placed only once in the 23 years since surgery. That bowel obstruction also resolved on its own. At the bedside, at the time of consultation, he endorses that all of his symptoms have gone away, he is passing gas, even seems to have a bowel movement although it is difficult to tell with the J-pouch, and he has no nausea and has not vomited. PFSH All Active Problems (Updated 09/24/24 @ 06:16 by NICK LARSON) Dehydration (Acute) Nausea & vomiting (Acute) Abdominal pain (Acute) CPAP (continuous positive airway pressure) dependence (Acute) Tubular adenoma (Acute ~07/2020) on EGD, repeat 6 months SVT (supraventricular tachycardia) (Chronic) Familial polyposis of colon (Acute) family hx-has routine proctoscopies with Dr. 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 PROCTOSCOPY (~12/2023) 05/03/14, 2020 Anoscopy (03/2021) 2021. acute and chronic inflammation. with biopsy - flat, low grade dysplasia Family History Mother , age 60 Colon cancer Father Hyperlipidemia Sister Cancer ?thyroid cancer Maternal Grandfather , age 80 No problems noted. Paternal Grandfather , age 50 No problems noted. Maternal Grandmother No problems noted. Paternal Grandmother , age 80 No problems noted. Social History Smoking/Tobacco Use Status: Never Tobacco: How many years used: 0 Second Hand Exposure: No Smoking risk assessment performed?: Yes Alcohol Intake: current Alcohol Intake frequency: a few times a month Alcohol type: beer Drug use: Never Substance use type: does not use Caregiver/Support person: No Household members: spouse, family and children Housing: house Communication Needs: None Do you need help understanding health information?: Never Pets and animals: Yes Pets and animals: cat(s) and dog(s) Sexually active: Yes Do you think of yourself as: straight/heterosexual Current gender identity: male What is your relationship status?: How often do you talk on the phone with friends or family?: three or more times per week How often do you get together with friends or relatives?: once per week How often do you attend gnosticism or religion services?: decline to answer Do you belong to any clubs or organized social groups?: no Panel score (0-1 are the most socially isolated patients): 2 What type of physical activity do you participate in: none Duration: < 15 minutes/day Frequency: 1-2 times per week Alivia/Gnosticist: No preference Special alivia needs: No Seatbelt use: always Helmet use: Yes Helmet use: always Drive intox or ride w/intox service car driver: No Do you feel safe at home: Yes Do you feel safe in your relationship?: Yes Victim of physical abuse: No Victim of emotional abuse: No Would you like helpful sources: No Exam Narrative Exam Narrative: Gen: Non-toxic, comfortable and interactive Neuro: Alert and oriented x3 Psych: Good mood and affect. Good insight and understanding into condition. Chest: Non-labored breathing, no wheezing, no visible shortness of breath. Heart: Regular Abdomen: Soft, obese, no noticeable distention and no tenderness anywhere. Results Last Vital Signs Temp 94.2 F L 09/24/24 05:21 Pulse 92 H 09/24/24 05:21 Resp 16 09/24/24 05:21 BP 132/92 H 09/24/24 05:21 Pulse Ox 96 09/24/24 05:21 Labs 09/24/24 02:56 09/24/24 02:56 Labs: Laboratory Results - last 24 hr 09/24/24 02:56 WBC 12.25 H RBC 6.83 H Hgb 19.7 H* Hct 57.1 H* MCV 84 MCH 28.8 MCHC 34.5 RDW 14.9 H Plt Count 387 MPV 10.3 Immature Gran % 0.2 Neutrophils % 74.1 Lymphocytes % 12.7 Monocytes % 9.9 Eosinophils % 2.6 Basophils % 0.5 Nucleated RBC % 0.0 Absolute Neutrophils 9.08 H Absolute Lymphocytes 1.55 Absolute Monocytes 1.21 H Absolute Eosinophils 0.32 Absolute Basophils 0.06 Sodium 135 L Potassium 4.2 Chloride 100 Carbon Dioxide 24.7 Anion Gap 10.3 BUN 19 H Creatinine 1.4 H Est GFR (CKD-EPI 2020) 64.36 Glucose 102 Calcium 9.3 Magnesium 2.3 Total Bilirubin 1.0 AST 45 H ALT 63 Alkaline Phosphatase 130 H Total Protein 8.9 H Albumin 4.3 Lipase 58
--- NOTE | 2024-09-24 08:38 | INITIAL_ITS ---
Date of service: 09/24/24 Time of Service: 08:38 Care Management Initial Assmt Initial Assessment Reason for Hospitalization: SBO Functional Status/Living Situation Patient Presentation: Wilbert is and lives in [facility] with his Ros. He is employed, drives and is fully independent at baseline. He has a HX of bowel issues and shares with CM that he is familiar with SBO's, and doesn't feel what he has going on is the same and questions if it would even be possible given he recently started a medication for weight loss and has eaten 1 cup of soup daily X 3 days. 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) Medications Medication Management: No Issues/Barriers identified Physical Functioning/Mobility Assistive Device: None Advance Directives Advance Directives: Do you have an Advance Directive: AD On File at [facility]: N 01/30/21 15:53 Date Asked 09/20/24 09/20/24 04:48 AD Date Reviewed COLST On File at [facility] COLST Date Scanned Code Status Resuscitation Status Full Code Insurance Coverage/Financial Issues Insurance: /[facility] - [id number] FINANCIAL ASST 70 - [id number] Care Team Visit Care Team Role Provider Type Cecilia Sanchez APRN MD [facility] STAFF PHYSICIAN Darian Torrez MD Primary Care Provider [facility] STAFF PHYSICIAN Edgar Waters MD Emergency Provider [facility] STAFF PHYSICIAN Efe Lao MD Admit Provider [facility] STAFF PHYSICIAN Attending Provider Discharge Potential Discharge Needs: PCP F/U Appt and Surgical F/U Appt Anticipated Barriers to Discharge: None Identified Patient/Family Education Needs: Review discharge instructions, discuss Ask Me Three Transportation: Private vehicle Plan: Surgical consult is pending, recommendations to follow. Anticipate, Wilbert will discharge home via private vehicle with family when medically ready per Surgeon. He will follow up with his community providers and discharge plan of care as prescribed. No new VNA services are indicated at this time. CM will follow. Social Determinants of Health Screening Will the Patient Participate in the Screening?: Unable to obtain PFSH All Active Problems (Updated 09/24/24 @ 06:16 by NICK LARSON) Dehydration (Acute) Nausea & vomiting (Acute) Abdominal pain (Acute) CPAP (continuous positive airway pressure) dependence (Acute) Tubular adenoma (Acute ~07/2020) on EGD, repeat 6 months SVT (supraventricular tachycardia) (Chronic) Familial polyposis of colon (Acute) family hx-has routine proctoscopies with Dr. 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 PROCTOSCOPY (~12/2023) 05/03/14, 2019 Anoscopy (03/2021) 2021. acute and chronic inflammation. with biopsy - flat, low grade dysplasia Family History Mother , age 60 Colon cancer Father Hyperlipidemia Sister Cancer ?thyroid cancer Maternal Grandfather , age 80 No problems noted. Paternal Grandfather , age 50 No problems noted. Maternal Grandmother No problems noted. Paternal Grandmother , age 80 No problems noted. Social History Smoking/Tobacco Use Status: Never Tobacco: How many years used: 0 Second Hand Exposure: No Smoking risk assessment performed?: Yes Alcohol Intake: current Alcohol Intake frequency: a few times a month Alcohol type: beer Drug use: Never Substance use type: does not use Caregiver/Support person: No Household members: spouse, family and children Housing: house Communication Needs: None Do you need help understanding health information?: Never Pets and animals: Yes Pets and animals: cat(s) and dog(s) Sexually active: Yes Do you think of yourself as: straight/heterosexual Current gender identity: male What is your relationship status?: How often do you talk on the phone with friends or family?: three or more times per week How often do you get together with friends or relatives?: once per week How often do you attend christianity or baptist services?: decline to answer Do you belong to any clubs or organized social groups?: no Panel score (0-1 are the most socially isolated patients): 2 What type of physical activity do you participate in: none Duration: < 15 minutes/day Frequency: 1-2 times per week Alivia/Restoration: No preference Special alivia needs: No Seatbelt use: always Helmet use: Yes Helmet use: always Drive intox or ride w/intox hazmat tanker driver: No Do you feel safe at home: Yes Do you feel safe in your relationship?: Yes Victim of physical abuse: No Victim of emotional abuse: No Would you like helpful sources: No
[2024-09-24] MEDS: Levothyroxine 112 MCG TAB PO (09:34)
--- NOTE | 2024-09-24 11:29 | W.PC.ACHO ---
Registration Status: Primary Language: Preferred Language: ED Information & Data Chief Complaint Abd Prob 09/24/24 05:21 Chief Complaint Abd Prob 09/24/24 05:17 Triage Note Pt arrives via POV from home 09/24/24 05:17 , here for recheck. seen last week for issues with colon. Started Terzepitide on , was seen Saturday for bowel obstruction. Last night he started to feel blocked again. 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 Took 1500mg tylenol around 930pm and Zofran around 6pm without relief. 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) Hypogonadism in male Hypothyroidism Sleep apnea Familial polyposis (Last Reviewed 09/24/24 @ 05:18 by Edgar Waters MD) History of esophagogastroduodenoscopy (EGD) (~2023) H/O colectomy (~2002) PROCTOSCOPY (~12/2023) Anoscopy (03/2021) Most Recent Vital Signs Temperature 34.6 C L 09/24/24 05:21 Temperature Source Temporal Artery Scan 09/24/24 05:21 Pulse 92 H 09/24/24 05:21 Respiratory Rate 16 09/24/24 08:14 Blood Pressure 136/71 09/24/24 08:14 Blood Pressure Mean 92 09/24/24 08:14 Blood Pressure Position Sitting 09/24/24 05:21 Pulse Oximetry 93 09/24/24 08:14 Oxygen Delivery Method Room Air 09/24/24 08:14 Oxygen Flow Rate 0 09/24/24 08:14 Allergies doxycycline Adverse Reaction (Intermediate, Verified 09/20/24 04:50) heartburn tirzepatide (From Zepbound) Adverse Reaction (Intermediate, Verified 09/21/24 09:32) Nausea Nausea and Vomiting. See ED visit from 09/20/2024. -hb Active Medications Generic Name Dose Route Start Last Admin Trade Name Freq PRN Reason Stop Dose Admin Ringer's Solution 1,000 mls @ 125 mls/hr 09/24/24 04:45 09/24/24 04:45 IV 125 mls/hr INFUSION ARIANA Administration Levothyroxine Sodium 112 mcg 09/24/24 08:30 09/24/24 09:34 Levothyroxine 112 Mcg Tab PO 112 mcg DAILY@0600 ARIANA Administration IV IV Catheter Type [Left Peripheral IV Antecubital] IV Catheter Gauge [Left 20 Antecubital] Diet Orders Category Date Time Status Nothing Per Oral [DIET] Nutrition 09/24/24 Breakfast Active Diagnostics 09/24/24 Range/Units 02:56 WBC 12.25 H (4.4-10.8) 10^3/uL RBC 6.83 H (4.36-5.78) 10^6/uL Hgb 19.7 H* (13.5-17.5) g/dL Hct 57.1 H* (40.0-50.0) % MCV 84 (80-95) fL MCH 28.8 (27.0-33.0) pg MCHC 34.5 (32.0-36.0) % RDW 14.9 H (11.8-14.1) % Plt Count 387 (130-400) 10^3/uL MPV 10.3 (8.0-11.0) fL Immature Gran % 0.2 % Neutrophils % 74.1 % Lymphocytes % 12.7 % Monocytes % 9.9 % Eosinophils % 2.6 % Basophils % 0.5 % Nucleated RBC % 0.0 (0.0-0.3) % Absolute Neutrophils 9.08 H (1.2-6.7) 10^3/uL Absolute Lymphocytes 1.55 (1.2-3.4) 10^3/uL Absolute Monocytes 1.21 H (0.1-0.8) 10^3/uL Absolute Eosinophils 0.32 (0.0-0.7) 10^3/uL Absolute Basophils 0.06 (0.0-0.2) 10^3/uL Sodium 135 L (136-145) mmol/L Potassium 4.2 (3.5-5.1) mmol/L Chloride 100 (98-107) mmol/L Carbon Dioxide 24.7 (21.0-32.0) mmol/L Anion Gap 10.3 (3-11) mmol/L BUN 19 H (7-18) mg/dL Creatinine 1.4 H (0.70-1.30) mg/dL Est GFR (CKD-EPI 2020) 64.36 (mL/min/1.73m2) Glucose 102 (74-106) mg/dL Calcium 9.3 (8.5-10.1) mg/dL Magnesium 2.3 (1.8-2.4) mg/dL Total Bilirubin 1.0 (0.2-1.0) mg/dL AST 45 H (15-37) U/L ALT 63 (16-63) U/L Alkaline Phosphatase 130 H (46-116) U/L Total Protein 8.9 H (6.4-8.2) g/dL Albumin 4.3 (3.4-5.0) g/dL Lipase 58 (<78) U/L Intake and Output - 24 Hour Total 09/24/24 02:17 thru 09/24/24 05:17 Intake Total 1000 Balance 1000 Weight 147.871 kg Intake: IV 1000 Falls Risk Assessment History of Falls No History 09/24/24 05:21 Contributing Factors No Factors 09/24/24 05:21 Ambulatory Aids Independent 09/24/24 05:21 Tubes/Lines None 09/24/24 05:21 Gait Evaluation No gait disturbance 09/24/24 05:21 Cognition No cognitive impairment 09/24/24 05:21 Fall Total Score 0 09/24/24 05:21 Level of Risk Standard/Low Risk 09/24/24 05:21 Problems (Last Reviewed 09/24/24 @ 05:18 by Edgar Waters MD) Dehydration (Acute) Nausea & vomiting (Acute) Abdominal pain (Acute) CPAP (continuous positive airway pressure) dependence (Acute) Familial polyposis of colon (Acute) v v v v v v v v v Sending and/or Receiving Nurses: Please use comment section below to note any information pertinent to the patient hand-off not included above. Information / Comments: Report received from:jumana
--- NOTE | 2024-09-24 14:33 | DI.VRAD_ITS ---
PROCEDURE INFORMATION: Exam: XR Abdomen Exam date and time: 09/24/2024 3:14 AM Age: 44 years old Clinical indication: Abdominal pain; Generalized; Prior surgery; Surgery date: 6+ months; Surgery type: Colon removed; Abd pain/ vomiting TECHNIQUE: Imaging protocol: Radiologic exam of the abdomen. Views: 2 Views. Upright and supine views. COMPARISON: CT ABDOMEN PELVIS W 09/20/2024 6:07 AM FINDINGS: Gastrointestinal tract: Moderately distended mostly gas-filled bowel loops in the mid to lower abdomen, mostly on the right side, with some air-fluid levels, nonspecific, potentially signifying ileus or obstruction. Intraperitoneal space: Normal. No free air. Bones/joints: Unremarkable for age. IMPRESSION: Moderately distended mostly gas-filled bowel loops in the mid to lower abdomen, mostly on the right side, with some air-fluid levels, nonspecific, potentially signifying ileus or obstruction. Dictated and Authenticated by: Jhonatan Sr MD. Ordering: Accession#=
--- NOTE | 2024-09-24 15:05 | PHA.REVIEW2 ---
Pharmacy Admission Review Admission Clinical Review Admission Pharmacy Review: Dehydration (Acute) Nausea & vomiting (Acute) Abdominal pain (Acute) CPAP (continuous positive airway pressure) dependence (Acute) Familial polyposis of colon (Acute) doxycycline Adverse Reaction (Intermediate, Verified 09/20/24 04:50) heartburn tirzepatide (From Zepbound) Adverse Reaction (Intermediate, Verified 09/21/24 09:32) Nausea Resuscitation Status Full Code Height 5 ft 11 in Weight 150.139 kg Pharmacy Admission Review Renal Dosing Renal Dosing: BUN 19 mg/dL (7-18) H 09/24/24 02:56 Creatinine 1.4 mg/dL (0.70-1.30) H 09/24/24 02:56 Medications needing adjustments: Reviewed Anticoagulation Anticoagulation: Hgb 19.7 g/dL (13.5-17.5) H* 09/24/24 02:56 Hct 57.1 % (40.0-50.0) H* 09/24/24 02:56 Plt Count 387 10^3/uL (130-400) 09/24/24 02:56 Creatinine 1.4 mg/dL (0.70-1.30) H 09/24/24 02:56 DVT Prophylaxis: Intervened (recommended to add enoxaparin) Opiate Usage Evaluate Pain Scale/Pains Meds: N/A Scheduled Bowel Reg ordered if on Opiates?: No Relevant Labs Relevant Labs: Sodium 135 mmol/L (136-145) L 09/24/24 02:56 Potassium 4.2 mmol/L (3.5-5.1) 09/24/24 02:56 Chloride 100 mmol/L (98-107) 09/24/24 02:56 Magnesium 2.3 mg/dL (1.8-2.4) 09/24/24 02:56 Electrolytes, C-Reactive P, ESR: Reviewed DM Control DM Control: N/A Insulin Dosing, Diabetic Medication: non diabetic; fasting [id number] Cardiac Review BP, HR, EF%: Reviewed (on home metoprolol) QTc Review QTc: N/A List meds needing interventions: no ekg IV to PO Switch IV Medications: Reviewed Home Meds Home Med List reviewed: Reviewed Relevent Home Meds Not ordered & why?: on home meds except for testosterone-last taken 08/23/24-pt will resume once discharged. Pt started zepbound on 09/18/24-may be d'cd outpatient due to SBO Current Meds Current Medication Order Review: Reviewed
--- NOTE | 2024-09-24 18:14 | PGE_ITS ---
Date of Service Date of service: 09/24/24 Time of Service: 18:14 Assessment and Plan Assessment and plan (1) Abdominal pain: Start date: 09/24/24 Start time: 18:16 Status: Acute Assessment and plan: Resolved this p.m. Patient reports having bowel movements with identifiable food components from his last meal, passing flatus during bowel movements Will attempt to feed patient and observe for adverse effect NG tube was ordered for decompression and possible Gastrografin and throwing. The patient initially refused stating that he felt that he had no further obstruction of the small bowel As per discussion with Dr. Bravo from surgery, the patient passing food like stool and not feeling obstructed at this time most likely indicates that this has resolved; uncertain about IV Valium started in the ED. The patient will not be discharged with Valium. History of recurrent small bowel obstructionsin this man who had a total colectomy in 2002. Most likely exacerbated and linked to the initiation of terzepatide (GLP1 receptor agonist and GIP) on ?Saturday with first visit to the ED on Saturday. Recommendation to hold this Rx at discharge and adverse effect/ contraindications review with PCP. Ongoing diazepam 5 mg IV push every 6 hours until his abdominal pain and distention improved. IV fluids down to 125 cc an hour , might be stopped if enteral intake tolerated Off note H&H 19.7& 58.9 on admission (2) CPAP (continuous positive airway pressure) dependence: Status: Acute Assessment and plan: Ask family to bring in his CPAP machine for use overnight. (3) Familial polyposis of colon: Status: Acute Assessment and plan: Total colectomy 2002. Ongoing intervention for surveillance periodically. Discussed with Dr. Potts Subjective Subjective Patient reports: no new complaints, feels better, flatus and bowel movement; denies blood in stool, nausea, vomiting or shortness of breath Exam Narrative Exam Narrative: 44 years old male patient with obese body habitus, without acute distress, no neurodeficit, S1-S2, clear lungs, nonacute abdomen/abdomen is soft nontender non distended, bowel sounds are mostly present without high-pitched sounds Objective Last Vital Signs Temp 36.3 C L 09/24/24 11:43 Pulse 93 H 09/24/24 14:58 Resp 14 09/24/24 11:43 BP 113/72 09/24/24 14:58 Pulse Ox 98 09/24/24 11:43 Laboratory Results - last 24 hr 09/24/24 02:56 WBC 12.25 H RBC 6.83 H Hgb 19.7 H* Hct 57.1 H* MCV 84 MCH 28.8 MCHC 34.5 RDW 14.9 H Plt Count 387 MPV 10.3 Immature Gran % 0.2 Neutrophils % 74.1 Lymphocytes % 12.7 Monocytes % 9.9 Eosinophils % 2.6 Basophils % 0.5 Nucleated RBC % 0.0 Absolute Neutrophils 9.08 H Absolute Lymphocytes 1.55 Absolute Monocytes 1.21 H Absolute Eosinophils 0.32 Absolute Basophils 0.06 Sodium 135 L Potassium 4.2 Chloride 100 Carbon Dioxide 24.7 Anion Gap 10.3 BUN 19 H Creatinine 1.4 H Est GFR (CKD-EPI 2020) 64.36 Glucose 102 Calcium 9.3 Magnesium 2.3 Total Bilirubin 1.0 AST 45 H ALT 63 Alkaline Phosphatase 130 H Total Protein 8.9 H Albumin 4.3 Lipase 58 Time Spent with Patient Time Spent with Patient: >50 minutes Time was spent: preparing to see the patient(eg.review tests), obtaining and/or reviewing separately otained hiistory, ordering medications,tests, procedures, referring, communicating with other health neonatal critical care nurse, indepentently interpreting results, counseling the patient and care coordination
[2024-09-25] MEDS: Lactated Ringers 1,000 ML 125 ML IV ×2 (00:06→09:04)
[2024-09-25] MEDS: Levothyroxine 112 MCG TAB PO (05:49)
[2024-09-25 06:43] LABS: Abs Immature Grans 0.05 10^3/uL (0.0-0.06); Absolute Basophil Count 0.02 10^3/uL (0.0-0.2); Absolute Eosinophil Count 0.55 10^3/uL (0.0-0.7); Absolute Lymphocyte Count 1.97 10^3/uL (1.2-3.4); Absolute Neutrophil Count 7.06 10^3/uL (1.2-6.7); Basophils % 0.2 %; Eosinophils % 5.2 %; HCT 51.8 % (40.0-50.0); HGB 17.5 g/dL (13.5-17.5); Immature Grans % 0.5 %; Lymphocytes % 18.5 %; MCH 28.6 pg (27.0-33.0); MCHC 33.8 % (32.0-36.0); MCV 85 fL (80-95); MPV 10.4 fL (8.0-11.0); Monocytes % 9.4 %; Neutrophils % 66.2 %; Platelet Count 283 10^3/uL (130-400); RBC 6.11 10^6/uL (4.36-5.78); RDW 14.4 % (11.8-14.1); RDW-SD 43.2 fL; WBC 10.65 10^3/uL (4.4-10.8)
[2024-09-25 07:04] LABS: Anion Gap 10.2 mmol/L (3-11); BUN 12 mg/dL (7-18); CO2 22.8 mmol/L (21.0-32.0); CREATININE 1.1 mg/dL (0.70-1.30); Calcium 8.7 mg/dL (8.5-10.1); Chloride 103 mmol/L (98-107); Estimated GFR 85.95 (mL/min/1.73m2); Glucose 104 mg/dL (74-106); Potassium 4.2 mmol/L (3.5-5.1); Sodium 136 mmol/L (136-145)
[2024-09-25 07:37] VITALS: BP 103/62; PULSE 75; RESP 20; TEMP 36.4; O2SAT 94
--- NOTE | 2024-09-25 10:16 | PDOC.CMDIS ---
Date of service: 09/25/24 Time of Service: 10:16 LACE Index Scoring Tool Questions: Length of Stay (in days): 1 Was the patient admitted via the E.D.?: Yes E.D. Visits: 2 Answers: Total Score: 6 Risk of Readmission: Low Risk Care Management Discharge Plan Reason for Hospitalization: SBO Discharge Plan: Discharge home via private vehicle with family. Follow up with community providers and discharge plan of care as directed. No new services are ordered prior to discharge. Patient/Family Education Needs: Review discharge instructions, Discuss ask me three. SDOH Health Related Social Needs: Health related social needs details none
--- NOTE | 2024-09-25 12:11 | DSE_ITS ---
Date of service: 09/25/24 Time of Service: 12:12 DS: Diagnosis Discharge Diagnosis (1) Small bowel obstruction: Status: Resolved Discharge Plan Disposition Patient Disposition: Home Condition: Improving Discharge Details Reason For Visit: Small bowel obstruction Admit Date/Time: 09/24/24 06:01 Admit Provider: Efe Lao Attending Provider: Efe Lao Primary Care Provider: Darian Torrez Hospital Course Hospital Course: Reason for Admission: * Abdominal Pain (Acute) This is a 44-year-old male with a significant medical history including familial polyposis of the colon, total colectomy in 2002, and morbid obesity (BMI of 46), presented to the hospital on 09/24/2024 with complaints of abdominal pain and distention. He has had recurrent episodes of small bowel obstruction in the past, which were managed conservatively with IV diazepam. His recent episode on 09/24/2024 appeared to resolve similarly. Upon admission, the patient was evaluated for an acute small bowel obstruction. On examination, his abdomen was soft and non-tender, with no signs of organomegaly or significant distention. The patient had a benign abdominal exam and was started on IV diazepam every 6 hours for pain management, along with IV fluids. Over the course of the hospitalization, the patient?s abdominal distention improved, and he showed no further signs of active obstruction. Given his history of a J-pouch, the decision was made to approach any potential surgical interventions cautiously. A surgical consultation by Dr. Cuong Bravo was obtained. Dr. Bravo confirmed that the small bowel obstruction appeared to have resolved spontaneously, noting that there was no need for decompression or surgical exploration. Due to the patient?s morbid obesity and complex surgical history, it was recommended that any further surgical interv ention be deferred to [facility] colorectal surgery for further evaluation if needed in the future. The surgical team also confirmed that the patient did not require additional imaging at this time. The patient was noted to be slightly dehydrated on admission, but the dehydration was corrected with IV fluids. After his symptoms improved, a PO challenge was performed and he was able to tolerate oral intake. By the end of his hospitalization, the patient had improved significantly. His abdominal pain resolved, and he tolerated a clear liquid diet without difficulty. Once the patient?s hydration status was stabilized and his lab values began to normalize, he was ready for discharge. The surgical consultation confirmed that no further follow-up with the surgery team was required unless his condition worsened or new symptoms emerged. Discharge Plan: The patient was discharged with instructions to follow up with his GI specialist for continued surveillance of his familial polyposis, including proctoscopy. He was also advised to monitor his diet, starting with clear liquids and progressing as tolerated. No further surgical follow-up was required at this time. The patient was instructed to discontinue Zepbound (tirzepatide), as it had caused diarrhea and loss of appetite. The patient was advised to contact his healthcare provider if he experienced any worsening abdominal symptoms or new signs of distention. He was also reminded to continue CPAP use during sleep and follow up on his ongoing medications, including levothyroxine, metoprolol, and testosterone cypionate. Conclusion: Mr. Saenz?s hospitalization was primarily due to a recurrent small bowel obstruction, which resolved with supportive measures, including IV fluids and IV diazepam. His condition improved significantly during the hospital stay, and he was discharged in stable condition with plans for ongoing follow-up with his GI provider and CPAP management for sleep apnea. No further surgical intervention was required at this time. Follow-Up Instructions: * GI follow-up: Continue regular proctoscopy surveillance with GI specialist. * CPAP use: Bring CPAP machine for overnight use, ensure use for sleep. * Dietary recommendations: Clear liquids to be resumed once abdominal symptoms improve, then progress to solid foods. * Medications: Patient instructed to follow-up with his prescribing physician regarding Zepbound (tirzepatide). * Seek medical attention if new or worsening symptoms occur, including increasing abdominal pain, vomiting, or respiratory distress. Home Meds and New Rx's Prescriptions: Continued (DME) syringe with needle, safety [Easy Touch SheathLock Syrg-Ndl] 3 mL 22 gauge x 1 syringe See Rx Instructions .ROUTE .MEDSUPPLY Qty: 24 1RF Rx Instructions: inject every 1 week metoprolol succinate 50 mg tablet extended release 24 hr 50 mg PO DAILY MDD 50 PRN (Reason: rapid heart beat) Qty: 10 3RF albuterol sulfate 90 mcg/actuation HFA aerosol inhaler 2 puff inhalation Q6H PRN (Reason: shortness of breath or wheezing) Qty: 8.5 0RF testosterone cypionate [Depo-Testosterone] 200 mg/mL oil 100 mg IM QWEEK Qty: 10 5RF levothyroxine 112 mcg tablet 112 mcg PO DAILY Patient Comments: TAKE ONE TABLET BY MOUTH EVERY DAY Discontinued Zepbound 2.5 mg/0.5 mL pen injector 2.5 mg SUBCUT .WEEKLY Patient Comments: INJECT 2.5MG (1 PEN) SUBCUTANEOUSLY EVERY WEEK FOR OBESITY FOR 4 WEEKS Discharge Instructions Instructions: Small bowel obstruction Additional Instructions: 1. Activity * Gradually return to normal activities as tolerated. * Walk regularly to promote bowel function and circulation. * Get plenty of rest and listen to your body. 2. Diet * Start with a low-residue (low-fiber) diet unless otherwise directed. * Avoid raw vegetables, nuts, seeds, corn, popcorn, whole grains, and tough meats. * Focus on easily digestible foods like white rice, bananas, applesauce, toast, eggs, and broths. * Advance diet slowly as tolerated. Watch for signs of recurrent symptoms (e.g., bloating, cramping, nausea). * Drink plenty of fluids to stay hydrated unless fluid restriction was advised. * If you have dietary restrictions (e.g., for diabetes or kidney disease), follow your provider?s guidance. 3. Medications * Take all prescribed medications as directed. * STOP ZEPBOUND * Avoid medications that slow the bowel (e.g., opioids, anticholinergics) unless instructed otherwise. 4. Follow-Up * Schedule a follow-up appointment with your PCP within 1?2 weeks. * No follow-up with the surgery team is required unless any symptoms recur or there are new concerns. * Contact your doctor if you are not having regular bowel movements within a few days. 5. When to Seek Immediate Medical Attention Call 911 or go to the Emergency Department if you experience: * Severe or worsening abdominal pain * Persistent nausea or vomiting * Inability to pass gas or have a bowel movement * Abdominal swelling or bloating * Fever >100.4?F (38?C) * Signs of dehydration (dizziness, dry mouth, decreased urination) Stand Alone Forms: Nursing Discharge Form Referrals: Darian Torrez MD [Primary Care Provider] - (1-2 weeks status post SBO r/t Zepbound) Activity:: Activity as Tolerated Equipment/Supplies:: No Equipment Needed Diet:: as above Discharge Orders Discharge Orders: Discharge Order (Routine); Ordered 09/25/24 Ordered By: Ginny Tai Discharge Data Discharge Date/Time-TO BE ENTERED AT DEPARTURE: 09/25/24 13:10 DS: Summary Time Spent with Patient providing and/or coordinating discharge services: Greater than 30 minutes Status at Discharge Functional status at discharge: independent ambulation Overall status at discharge: patient is back to baseline Mental Status: mental status grossly normal Speech and Movement: speech and movement normal Mood: congruent mood Affect: normal affect Quality:SDOH Health Related Social Needs: Health related social needs details none Exam Narrative Exam Narrative: Gen: Non-toxic, comfortable and interactive Neuro: Alert and oriented x3 Psych: Good mood and affect. Good insight and understanding into condition. Chest: Non-labored breathing, no wheezing, no visible shortness of breath. Heart: Regular Abdomen: Soft, obese, no noticeable distention and no tenderness anywhere. Psych Mental Status: mental status grossly normal Speech and Movement: speech and movement normal Mood: congruent mood Affect: normal affect DS: Data Vitals/I&O Vitals and I&O: Vital Signs Temperature 36.4 C L 09/25/24 07:37 Temperature Source Temporal Artery Scan 09/25/24 07:37 Pulse 75 09/25/24 07:37 Pulse Rhythm Regular 09/24/24 11:43 Respiratory Rate 20 09/25/24 07:37 Respiratory Effort Normal 09/24/24 11:43 Respiratory Depth Normal 09/24/24 11:43 Respiratory Pattern Normal 09/24/24 11:43 Blood Pressure 103/62 09/25/24 07:37 Blood Pressure Mean 75 09/25/24 07:37 Blood Pressure Position Sitting 09/24/24 05:21 Pulse Oximetry 94 09/25/24 07:37 Oxygen Delivery Method Room Air 09/25/24 07:37 Oxygen Flow Rate 0 09/25/24 07:37 Pain Level 3 09/24/24 14:48 Intake & Output 09/24/24 09/25/24 09/25/24 23:59 11:59 23:59 Intake Total 2000 / 3000 3000 / 3000 Balance 2000 / 3000 3000 / 3000 Intake: IV 2000 / 3000 3000 / 3000 Other: Urine Color Yellow Urine Appearance Clear Comment pt has been voiding independently in toilet pt voids independently, no issues reported Stool Size Moderate Stool Characteristics Liquid Data Completed and Pending Labs on day of discharge: Labs from last 24 hours 09/25/24 06:22: WBC 10.65, RBC 6.11 H, Hgb 17.5 D, Hct 51.8 H, MCV 85, MCH 28.6, MCHC 33.8, RDW 14.4 H, Plt Count 283, MPV 10.4, Immature Gran % 0.5, Neutrophils % 66.2, Lymphocytes % 18.5, Monocytes % 9.4, Eosinophils % 5.2, Basophils % 0.2, Nucleated RBC % 0.0, Absolute Neutrophils 7.06 H, Absolute Lymphocytes 1.97, Absolute Monocytes 1.00 H, Absolute Eosinophils 0.55, Absolute Basophils 0.02, Sodium 136, Potassium 4.2, Chloride 103, Carbon Dioxide 22.8, Anion Gap 10.2, BUN 12, Creatinine 1.1, Est GFR (CKD-EPI 2020) 85.95, Glucose 104, Calcium 8.7 PFSH All Active Problems (Updated 09/25/24 @ 12:24 by Ginny Tai NP) Dehydration (Acute) Nausea & vomiting (Acute) Abdominal pain (Acute) CPAP (continuous positive airway pressure) dependence (Acute) Tubular adenoma (Acute ~07/2020) on EGD, repeat 6 months SVT (supraventricular tachycardia) (Chronic) Familial polyposis of colon (Acute) family hx-has routine proctoscopies with Dr. 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 PROCTOSCOPY (~12/2023) 05/03/14, 2020 Anoscopy (03/2021) 2021. acute and chronic inflammation. with biopsy - flat, low grade dysplasia Family History Mother , age 60 Colon cancer Father Hyperlipidemia Sister Cancer ?thyroid cancer Maternal Grandfather , age 80 No problems noted. Paternal Grandfather , age 50 No problems noted. Maternal Grandmother No problems noted. Paternal Grandmother , age 80 No problems noted. Social History Smoking/Tobacco Use Status: Never Tobacco: How many years used: 0 Second Hand Exposure: No Smoking risk assessment performed?: Yes Alcohol Intake: current Alcohol Intake frequency: a few times a month Alcohol type: beer Drug use: Never Substance use type: does not use Caregiver/Support person: No Household members: spouse, family and children Housing: house Communication Needs: None Do you need help understanding health information?: Never Pets and animals: Yes Pets and animals: cat(s) and dog(s) Sexually active: Yes Do you think of yourself as: straight/heterosexual Current gender identity: male What is your relationship status?: How often do you talk on the phone with friends or family?: three or more times per week How often do you get together with friends or relatives?: once per week How often do you attend pentecostalism or oriental orthodox services?: decline to answer Do you belong to any clubs or organized social groups?: no Panel score (0-1 are the most socially isolated patients): 2 What type of physical activity do you participate in: none Duration: < 15 minutes/day Frequency: 1-2 times per week Alivia/Yarsani: No preference Special alivia needs: No Seatbelt use: always Helmet use: Yes Helmet use: always Drive intox or ride w/intox tanker driver: No Do you feel safe at home: Yes Do you feel safe in your relationship?: Yes Victim of physical abuse: No Victim of emotional abuse: No Would you like helpful sources: No Time Spent with Patient Time Spent with Patient: 45-69 minutes Time was spent: preparing to see the patient(eg.review tests), ordering medications,tests, procedures, referring, communicating with other health progressive care manager, indepentently interpreting results, counseling the patient and care coordination
== END 2024-09-25 13:10 | disposition home or self-care (01) ==
LOC: ER 05:34 → EDHOLD 06:16 → MS 11:01
PROVIDERS: Admitting Provider Family Medicine; Emergency Provider Emergency Medicine; PCP Family Medicine; Responsible Provider Nurse Practitioner Family; Visit Provider Family Medicine
DX: K56.609 Unspecified intestinal obstruction, unspecified as to partial versus complete obstruction; E66.01 Morbid (severe) obesity due to excess calories; Z68.42 Body mass index [BMI] 45.0-49.9, adult; E86.0 Dehydration; R11.2 Nausea with vomiting, unspecified; I47.10 Supraventricular tachycardia, unspecified; K21.00 Gastro-esophageal reflux disease with esophagitis, without bleeding; Z90.49 Acquired absence of other specified parts of digestive tract; G47.30 Sleep apnea, unspecified; Z98.0 Intestinal bypass and anastomosis status; D13.91 Familial adenomatous polyposis; Z99.89 Dependence on other enabling machines and devices
CPT/HCPCS: 00123; 36415; 80048; 80053; 83690; 96361; 96374; 96375; 96376; 99285; 74019; 83735; 85025; 99222; 99239; G0378; J2405; J3360

== ENCOUNTER 2025-02-11 08:28 | Outpatient (CLI) | payer BC, SELFPAY ==
[2025-02-11 08:34] LABS: Kit/Specimen SENT
== END 2025-02-11 08:29 | disposition home or self-care (01) ==
LOC: LBO 08:29
PROVIDERS: PCP Family Medicine; Visit Provider Student in an Organized Health Care Education/Training Program
DX: D13.91 Familial adenomatous polyposis (principal); Z80.0 Family history of malignant neoplasm of digestive organs
CPT/HCPCS: 36415

== ENCOUNTER 2025-02-26 08:59 | Day surgery (SDC) | payer BC, SELFPAY ==
--- NOTE | 2025-02-25 20:14 | W.PM.DSUDISC ---
Date of service: 02/26/25 Discharge Plan Disposition Patient Disposition: Home Condition: Good Discharge Details Reason For Visit: EGD and colonoscopy Attending Provider: Feng Ma Primary Care Provider: Darian Torrez Home Meds and New Rx's Prescriptions: Continued diazepam [Valium] 5 mg tablet 5 mg PO TID PRN (Reason: abd. pain) Qty: 30 0RF metoprolol succinate 50 mg tablet extended release 24 hr 50 mg PO DAILY MDD 50 PRN (Reason: rapid heart beat) Qty: 10 3RF albuterol sulfate 90 mcg/actuation HFA aerosol inhaler 2 puff inhalation Q6H PRN (Reason: shortness of breath or wheezing) Qty: 8.5 0RF levothyroxine 112 mcg tablet See Rx Instructions .ROUTE .COMPLEX Qty: 90 3RF Dose Instruction: TAKE ONE TABLET BY MOUTH EVERY DAY Rx Instructions: TAKE ONE TABLET BY MOUTH EVERY DAY (DME) syringe with needle, safety [Easy Touch SheathLock Syrg-Ndl] 3 mL 22 gauge x 1 syringe See Rx Instructions .ROUTE .MEDSUPPLY Qty: 24 1RF Rx Instructions: inject every 1 week testosterone cypionate [Depo-Testosterone] 200 mg/mL oil 100 mg IM QWEEK Qty: 10 5RF Discharge Instructions Additional Instructions: Chance, it was great seeing you today. I hope you have a great afternoon. Things went very smoothly. Your upper endoscopy was totally normal. I saw no evidence of any polyps anywhere along your esophagus, stomach, and into the third portion of the duodenum. Nor were there any polyps on your proctoscopy. There is a little bit of proctitis that appears exactly the same as your previous scopes. Please let me know if you need anything at all. Otherwise look forward to seeing you next year. 1. If tolerated, consume a soft, low fiber diet for 1-2 days. 2[address] Do not drive, drink alcohol, operate machinery, make critical decisions, or do activities that require coordination or balance for 24 hours. 3. Because air was put into your colon during the procedure, expelling air from your rectum (passing gas or farting) is normal. 4. You may not have a bowel movement for 1-3 days because of the colonoscopy prep. This is normal. 5. You may experience a sore throat for 24 to 48 hours. You may use throat lozenges or gargle with warm salt water to relieve the discomfort. 6. Because air was put into your stomach during the procedure, you may experience some belching. 7. Go directly to the emergency room if you notice any of the following: Develop chills (warm to touch), or if you have a thermometer and your temperature is above 101 Difficulty breathing or difficultly swallowing Persistent vomiting Severe abdominal pain, other than gas cramps Severe chest pain Black, tarry stools Any bleeding ? exceeding one tablespoon 8. Call your physician if the site where your intravenous was started becomes red, swollen, painful, and warm to touch. 9. Your physician has reviewed your pre-procedure medications. Please continue to take those medications as previously ordered. You will be given specific information/education regarding any changes to your medications before leaving. Activity:: Activity as Tolerated Diet:: As Tolerated Discharge Orders Discharge Orders: Discharge Order (Routine); Ordered 02/25/25 Ordered By: Feng Ma DS: Diagnosis Discharge Diagnosis (1) Family history of familial adenomatous polyposis: Status: Acute Asessment and Plan: Negative EGD and proctoscopy; 1 year follow-up
--- NOTE | 2025-02-25 20:15 | W.PM.ENDDOP ---
Date of service: 02/26/25 Time of Service: 11:15 Endoscopy Report DATE OF PROCEDURE: 02/26/25 PRE-OP DIAGNOSIS: familial adenomatous polyposis syndrome POST-OP DIAGNOSIS: same PROCEDURE: EGD and proctoscopy SURGEON: Feng Ma ANESTHESIA TYPE: General:No Airway ESTIMATED BLOOD LOSS: 0 PATHOLOGY: none sent COMPLICATIONS: None DISPOSITION: same day INDICATIONS: Wilbert is a 44 year old man with FAP who needs his next screening colonoscopy and EGD PROCEDURE START TIME: 10:57 PROCEDURE END TIME: 11:09 FINDINGS: Chronic pouchitis PROCEDURE DESCRIPTION: After the initiation of anesthesia, and with the assistance of a bite block, I advanced a standard gastroscope through the mouth past the hypopharynx and into the esophagus.? Under the direct vision of the scope, I advanced down the esophagus towards the stomach.? The upper, mid, and lower esophagus were all normal in course and caliber. Mucosa was totally healthy appearing. I saw no evidence of any polyps here. The GE junction is encountered around 34 cm past the incisors. The Z-line is regular, and I saw no evidence of any Gilliland's esophagus. Once I entered the stomach, I performed a brief inspection, followed by retroflexion towards the gastric cardia.? This appeared normal.? After that, I gently advanced the scope around the incisura angularis and examined the pylorus.? This also appeared normal, without any evidence of polyps.? Next, I advanced the scope through the pylorus into the duodenum.? The mucosa was pink and healthy appearing.? There were no abnormalities.? The duodenal mucosa was totally normal through the third portion. There were no polyps here. The camera was then brought back up into the stomach and emptied completely before the camera was removed. We then assisted Maribeth to the left lateral decubitus position. He was padded and supported appropriately. I began by performing an external anorectal exam.? Perineum and skin were normal, as was the anal verge.? I performed a digital rectal exam. This was normal. I then advanced the camera into the rectal vault. I performed retroflexion. This was normal. There are some mild pouchitis at the upper portion of the rectal vault that appears at least consistent, if not mildly improved compared to previous proctoscopies. The anastomosis to the small bowel was healthy. I saw no evidence of any polyps throughout the proctoscopy. The camera was then removed as Maribeth was awoken from the anesthetic and transferred back to the day surgery unit.
[2025-02-26 09:15] VITALS: BP 135/91; PULSE 69; RESP 18; TEMP 36.6; O2SAT 96
[2025-02-26] MEDS: Lactated Ringers 1,000 ML 80 ML IV (09:41)
--- NOTE | 2025-02-26 10:01 | W.ANESPRE ---
General Info Date of Service Date Performed: 02/26/25 Height: 5 ft 10 in Weight: 152.2 kg Body Mass Index (BMI): 48.1 Surgical Procedure: Operation Date: 02/26/25 10:35 Proposed Procedure Side Surgeon p Colonoscopy/Gastroscopy Feng Ma MD Meds Allergies and Home Medications Allergies Allergy/AdvReac Type Severity Reaction Status Date / Time doxycycline AdvReac Intermediate heartburn Verified 02/24/25 12:23 tirzepatide (From Zepbound) AdvReac Intermediate Nausea Verified 02/24/25 12:23 Home Medication ?Medication ?Instructions ?Recorded albuterol sulfate 90 mcg/actuation 2 puff inhalation Q6H PRN 02/19/24 aerosol inhaler shortness of breath or wheezing #8.5 grams diazepam 5 mg tablet (Valium) 5 mg PO TID PRN abd. pain #30 tabs 10/01/24 metoprolol succinate 50 mg 50 mg PO DAILY PRN rapid heart 10/01/24 tablet,extended release 24 hr beat #10 tabs levothyroxine 112 mcg tablet See Rx Instructions .Route 10/22/24 .COMPLEX #90 tabs syringe with needle, safety 3 mL #24 ea 11/04/24 22 gauge x 1 (Easy Touch SheathLock Syringe with Needle) testosterone cypionate 200 mg/mL 100 mg (0.5 mL) IM QWEEK #10 mL 11/04/24 intramuscular oil (Depo-Testosterone) Current Visit Medications: Current Medications Generic Name Dose Route Start Last Admin Trade Name Freq PRN Reason Stop Dose Admin Ringer's Solution 1,000 mls @ 80 mls/hr 02/26/25 06:00 02/26/25 09:41 IV 02/26/25 23:59 80 mls/hr INFUSION ARIANA Administration IV Miscellaneous Supplies 1 each 02/26/25 06:00 Iv Access IV 02/26/25 23:59 DIRECTED ARIANA Sodium Chloride 0 ml 02/26/25 06:00 Normal Saline Flush 10 Ml Syr IV 02/26/25 23:59 PRN PRN Sodium Chloride 0 ml 02/26/25 06:00 Normal Saline 10 Ml Vial IJ 02/26/25 23:59 DIRECTED PRN Sterile Water 0 ml 02/26/25 06:00 Water,Injection,Sterile 10 Ml Vial IJ 02/26/25 23:59 DIRECTED PRN PFSH Active Problems Active Problems: Problem Status Onset Code Abdominal pain Acute R10.9 SVT (supraventricular tachycardia) Chronic I47.1 Tubular adenoma Acute ~07/2020 D36.9 Seasonal allergies Acute J30.2 Family history of familial adenomatous polyposis Acute Z83.71 Tubular adenoma of colon Acute 05/03/14 D12.6 Gastroesophageal reflux disease with esophagitis Acute 05/25/15 K21.0 BMI 40.0-44.9, adult Acute 07/11/15 Z68.41 Medical History Medical History CPAP (continuous positive airway pressure) dependence Familial polyposis of colon family hx-has routine proctoscopies with Dr. 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 PROCTOSCOPY (~12/2023) 05/03/14, 2020 Anoscopy (03/2021) 2021. acute and chronic inflammation. with biopsy - flat, low grade dysplasia Tobacco Smoking/Tobacco Use Status: Never Passive smoking exposure: No Second hand exposure: No Alcohol Alcohol Intake: current Alcohol intake frequency: a few times a month Alcohol type: beer Substance Use Substance use: Never Substance use type: does not use Vital Signs and Lab Results Vital Signs Most Recent Vital Signs in EMR: Most Recent Vital Signs Temp Pulse Resp BP Pulse Ox 36.6 C 69 18 135/91 H 96 02/26/25 09:15 02/26/25 09:15 02/26/25 09:15 02/26/25 09:15 02/26/25 09:15 Imaging and Studies Imaging and Studies Study information below may be from another EMR and interpreted by another provider. Please see original notes in EMR for more complete details. EKG Summary: EKG PATIENT NAME: Wilbert Saenz UNIT #: [id number] ORDERING PROVIDER: Won Abdalla PRIMARY CARE PROVIDER: DARIAN TORREZ MD DATE/TIME OF SERVICE: 09/09/232118 : 1980 PERFORMING LOCATION: ER APPROVED REPORT Exam: Resting ECG Reason for Exam: high hr Patient Location: E HR:101 bpm ECG Measurements Heart Rate 101 AXIS RI 182 P 69 QRSd 80 QRS 163 QT 313 T30 QTc 407 Conclusion Sinus tachycardia 101 right axis no stemi <Electronically signed by Hal Garcias M.D. in [place]> E-Sign Date: 09/11/23 E-Sign Time: 1837 ADDENDUM APPROVED REPORT Exam: Resting ECG Reason for Exam: high hr Patient Location: E HR:101 bpm ECG Measurements Heart Rate 101 AXIS RI 182 P 69 QRSd 80 QRS 163 QT 313 T30 QTc 407 Conclusion Sinus tachycardia 101 right axis no stemi I have reviewed and I agree with the emergency room physician's ECG interpretation. Electronically signed by: <Electronically signed by Mitzi Xiao M.D. in [place]> 09/12/23 0815 Cosigned by: Stress Test Summary: 01/2015: LVEF 60-65%, no hemodynamically sig valve lesion. Echocardiogram Summary: Patient Name: WILBERT SAENZ Unit #: [id number] Loc: DI Ordering Provider: Song Garcia M.D. Status: REG CLI Primary Care Provider: Darian Torrez Date of Exam: 01/27/15 Sex: M : 1980 Age: 34 Exam(s) [id number] US:Echocardiogram Heart *[facility]* *[facility]* [address] [place] [address] Date of study: 01/27/2015 Transthoracic Echocardiography M-mode, complete 2D, complete spectral Doppler, and color Doppler *STUDY CONCLUSIONS* Impressions: Normal study. Summary: 1. Left ventricle: The cavity size was normal. Wall thickness was normal. Systolic function was normal. The estimated ejection fraction was 60-65%. Wall motion was normal; there were no regional wall motion abnormalities. 2. Aortic valve: Trileaflet; normal thickness leaflets. Transvalvular velocity was within the normal range. There was no stenosis. 3. Mitral valve: Structurally normal valve. 4. Left atrium: The atrium was normal in size. 5. Right ventricle: The cavity size was normal. Wall thickness was normal. Systolic function was normal. 6. Pulmonary arteries: Pulmonary systolic pressure was within the normal range. *PATIENT PRESENTATION* Height: 180.3cm (71in ) S/D Pressure: 132 / 72 Weight: 130.6kg (287.4lb ) BSA: 2.61m^2 Test start time: 03:00 PM. Test stop time: 04:14 PM. ORDERING Efe Molina MD REFERRING Song Garcia SURGICAL PHYSICIAN ASSISTANT Christi Brooks PERFORMING [facility] *PROCEDURE DATA* Procedure information: [facility] INFO: [id number] This study was interpreted by [facility]. Pertinent images and digital data are archived for permanent storage and are available for subsequent review. No prior study was available for comparison. Study status: Routine. Transthoracic echocardiography. M-mode, complete 2D, complete spectral Doppler, and color Doppler. A Transthoracic Echocardiogram was performed. Scanning was performed from the parasternal, apical, subcostal, and suprasternal notch acoustic windows. Study completion: The patient tolerated the procedure well. History: PMH: Palpitations; Abnormal EKG. *CARDIAC ANATOMY* Left ventricle: The cavity size was normal. Wall thickness was normal. Systolic function was normal. The estimated ejection fraction was 60-65%. Wall motion was normal; there were no regional wall motion abnormalities. Aortic valve: Trileaflet; normal thickness leaflets. Mobility was not restricted. Doppler: Transvalvular velocity was within the normal range. There was no stenosis. No regurgitation. VTI ratio of LVOT to aortic valve: 0.77. Indexed valve area: 1.2cm^2/m^2 (VTI). Peak velocity ratio of LVOT to aortic valve: 0.73. Indexed valve area: 1.1cm^2/m^2 (Vmax). Mean gradient: 2.8mm Hg (S). Peak gradient: 6.2mm Hg (S). Aorta: Aortic root: The aortic root was normal in size. Mitral valve: Structurally normal valve. Mobility was not restricted. Doppler: Transvalvular velocity was within the normal range. There was no evidence for stenosis. No significant regurgitation. Valve area by pressure half-time: 3.3cm^2. Indexed valve area by pressure half-time: 1.3cm^2/m^2. Peak gradient: 2.6mm Hg (D). Left atrium: Well visualized. The atrium was normal in size. Right ventricle: The cavity size was normal. Wall thickness was normal. Systolic function was normal. Pulmonic valve: Doppler: Transvalvular velocity was within the normal range. There was no evidence for stenosis. No regurgitation. Tricuspid valve: Structurally normal valve. Doppler: Transvalvular velocity was within the normal range. There was no evidence for stenosis. Trivial regurgitation. Pulmonary artery: Pulmonary systolic pressure was within the normal range. Right atrium: The atrium was normal in size. Pericardium: There was no pericardial effusion. Systemic veins: Inferior vena cava: Not visualized. Baseline ECG: Normal sinus rhythm. *MEASUREMENT TABLES* 2D measurements Normal Left ventricle LV internal dimension, ED, chordal level, PLAX 49.5 mm 43-52 LV internal dimension, ES, chordal level, PLAX 29.2 mm 23-38 Fractional shortening, chordal level, PLAX 41 % >29 LV posterior wall thickness, ED 12 mm ------ IVS/LVPW ratio, ED 1 <1.3 Ejection fraction 71.6 % ------ Stroke volume 82.7 ml ------ Stroke index 31.6 ml/m^2 ----- Volume, ED, MOD, 1-plane 98.5 ml ------ Ejection fraction, MOD, 1-plane 62 % ------ Volume index, ED, MOD, 1-plane 38 ml/m^2 ----- Ventricular septum Septal thickness, ED 12 mm ------ Aorta Root diameter, ED 30.9 mm ------ Left atrium Area ES, A4C 19.8 cm^2 8.8- Volume index, S 25.7 ml/m^2 ----- Right atrium Area, ES 21.4 cm^2 ---- Doppler measurements Normal Main pulmonary artery Pressure, S 24 mm Hg <=30 Left ventricle IVRT *117 ms 60-100 Ea, medial annulus, tissue Doppler 16 cm/s ------ E/Ea, medial annulus, tissue Doppler 5 ------ LVOT Peak velocity, S 90 cm/s ------ VTI, S 17.3 cm ------ Peak gradient, S 3.2 mm Hg ------ Mean gradient, S 1.8 mm Hg ------ Aortic valve Peak velocity, S 124 cm/s ------ Mean velocity, S 77 cm/s ------ VTI, S 22.5 cm ------ Mean gradient, S 2.8 mm Hg ------ Peak gradient, S 6.2 mm Hg ------ VTI ratio, LVOT/AV 0.77 ------ Valve area index, VTI 1.2 cm^2/m^2 ------- Anesthesia Assessment and Plan Anesthesia History Personal History: No History of Anesthesia Complications Family History: No Family History of Anesthesia Complications Exercise Tolerance Exercise Tolerance: Metabolic Equivalents>4 Pertinent Negatives Pertinent Negatives: No Symptoms of GERD Cardiac & Pulmonary Exam Cardiac Exam: Normal S1/S2 Heart Sounds Pulmonary Exam: Clear Bilateral Breath Sounds Implantable Cardiac Device Does patient have a Pacemaker or an ICD?: No Airway Exam Known Difficult Airway: No Mallampati Class: 2 Mouth Opening: Normal (> 3cm) Thyromental Distance: Greater than 3 cm Neck Range of Motion: Full ROM Neck Circumference: Thick Teeth Condition: Normal Dentition ASA Classification ASA Score: ASA 3 Emergency Case?: No NPO Status NPO Status: NPO Clears >2 hours, Solids >8 hours Anesthesia Plan Resuscitation Status: Full Code Anesthesia Technique: General Anesthesia Airway Planned: Natural Airway Monitors Used: Standard Monitors
[2025-02-26 10:04] VITALS: BMI 48.1
[2025-02-26 11:12] VITALS: BP 117/70; PULSE 89; RESP 20; TEMP 36.4; O2SAT 94
--- NOTE | 2025-02-26 11:33 | W.ANESPOSTOP ---
Postoperative Evaluation Date, Time and Location Date Performed: 02/26/25 Time Performed: 11:20 Patient Location: Day Surgery Unit Vital Signs Most Recent Imported Vital Signs: Most Recent Vital Signs Temp Pulse Resp BP Pulse Ox 36.4 C L 89 20 117/70 94 02/26/25 11:12 02/26/25 11:12 02/26/25 11:12 02/26/25 11:12 02/26/25 11:12 Pain Score Most Recent Pain Score: Most Recent Pain Score Pain Level 0 02/26/25 11:12 Assessment Mental Status: Awake (Alert & Oriented to Patient Baseline) Airway and Respiratory Function: Patent airway with normal (patient baseline) respiratory exam Cardiovascular Function: Hemodynamically Stable Hydration Status: Adequately Hydrated Nausea & Vomiting: No Nausea or Vomiting Pain: Pt. Denies Any Pain Peripheral Nerve Block: Patient did not receive a nerve block
[2025-02-26 11:41] VITALS: BP 140/88; PULSE 67; RESP 16; TEMP 36.5; O2SAT 98
== END 2025-02-26 11:51 | disposition home or self-care (01) ==
LOC: SUR 08:59
PROVIDERS: PCP Family Medicine; Visit Provider Surgery
PROC: (CPT 43235; principal; 2025-02-26 10:30)
DX: Z12.11 Encounter for screening for malignant neoplasm of colon (principal); K51.90 Ulcerative colitis, unspecified, without complications; Z83.719 Family history of colon polyps, unspecified; K91.850 Pouchitis
CPT/HCPCS: 43235; 45300; J2003; J2704